=== PATIENT | male | born 1965 ===

== ENCOUNTER 2017-03-29 16:47 | Inpatient (IN) ==
[2017-03-29] MEDS ORDERED: ONDANSETRON 4 MG/2 ML VIAL IV PRN (18:44)
--- NOTE | 2017-03-29 18:58 | Hospitalist History & Physical ---
Assessment and Plan - Time spent with patient Time spent with patient: Greater than 30 minutes (1) Acute CVA (cerebrovascular accident) Status: Acute Assessment and plan: Patient has evidence of an acute to subacute ischemic CVA. He will be monitored in the ICU overnight. Will allow for permissive hypertension in view of his acute CVA. Will obtain MRI of the brain, carotid Dopplers, echocardiogram in the a.m. Will consult neurology. Provide pharmacologic DVT prophylaxis and began aspirin therapy. Current Visit: Yes (2) Hypertension Status: Acute Assessment and plan: Patient has chronic essential hypertension. He is currently hypertensive which will need to be controlled at some point however in the presence of acute ischemia will allow permissive hypertension at this time. Current Visit: Yes (3) Diabetes mellitus Status: Chronic Assessment and plan: He has been noncompliant. Will obtain hemoglobin A1c. Will begin Accu-Cheks with sliding scale insulin. Current Visit: Yes Qualifiers: Diabetes mellitus type: type 2 (4) Hyperlipidemia Status: Chronic Assessment and plan: Obtain lipid panel in the a.m. and provide appropriate therapy based on these results. Current Visit: Yes (5) Chronic kidney disease Status: Chronic Assessment and plan: Patient has chronic kidney disease stage IV based on his creatinine of 2.7 with an estimated GFR of 26. Will continue current therapy and avoid any potential nephrotoxic insults or agents. Current Visit: Yes Qualifiers: Chronic kidney disease stage: stage 4 (severe) Qualified Code(s): N18.4 - Chronic kidney disease, stage 4 (severe) History of Present Illness Chief complaint: Headache and dizziness History of present illness: Mr. Soto is a 51 year old male who initially presented to primary care provider with complaints of high blood pressure and dizziness. He has had a left/frontal headache which is throbbing in nature and waxing and waning in intensity for the past 3 days. He states his dizziness is more of imbalance. He denies any focal motor weakness or paresthesias speech difficulty, swallowing difficulty. He was then sent to [facility] where he was evaluated and ultimately transferred [facility] for workup of possible stroke. He does have a history of hypertension, diabetes mellitus, hyperlipidemia but states he is taking no medications and has been noncompliant. Medical,Surgical,& Family Hx - Medical History Cardio: History of: Hypertension Endocrine: History of: Diabetes Mellitus (NIDDM), Dyslipidemia - Surgical History Abdominal Surgeries: Surgical HX of: Appendectomy - Family History Family History: Reports;: Family Hypertension - Social History Smoking Status: Current every day smoker Have you smoked in the last 12 months: Yes (Discussed smoking cessation for 3 minutes.) Time spent discussing smoking cessation with patient: 3 to 10 minutes Frequency of Alcohol Use: Occasionally (He states he drinks on weekends) Type of Drug Use: None Marital Status: Functional capacity: independent ambulation 12 point system: reviewed and no additional remarkable complaints except as stated Exam - Constitutional General appearance: no acute distress - Head Head exam: Present: normocephalic, atraumatic - Eye Eye exam: Present: EOMI, other (He does appear to have a right homonymous hemianopsia). Absent: nystagmus Pupils: Present: MAVIS - ENT ENT exam: Present: normal oropharynx - Neck Neck exam: Present: normal inspection. Absent: lymphadenopathy, meningismus, tenderness, thyromegaly - Respiratory Respiratory exam: Present: clear to auscultation bilaterally. Absent: rales, rhonchi, wheezes - Cardiovascular Cardiovascular exam: Present: gallop (S 4), regular rate and rhythm. Absent: carotid bruit, systolic murmur, tachycardia - GI/Abdominal GI/Abdominal exam: Present: normal bowel sounds, soft. Absent: mass, tenderness , rebound - Extremities Exam Extremities exam: Absent: calf tenderness, edema - Back Exam Back exam: Present: normal inspection - Neurological Exam Neurological exam: Present: alert, oriented X3, CN II-XII intact, reflexes normal. Absent: motor sensory deficit - Psychiatric Psychiatric exam: Present: normal affect, normal mood. Absent: agitated, anxious - Skin Skin exam: Present: warm, dry. Absent: erythema, petechiae, rash Results - Labs Lab Results: I have reviewed the past 24 hour labs Labs: Laboratory from [facility] cardiac isoenzymes were negative. Creatinine was 2.7 with a BUN of 18. Sodium 145, potassium 3.5, CO2 29, glucose 130, chloride 110. CBC revealed white count of 6.6, platelet count 233, 000, hemoglobin 13.9, hematocrit 42.2 - EKG EKG shows: sinus rhythm - Impressions EKG revealed a normal sinus rhythm with no acute changes - Diagnostic Findings Procedure: CT: report reviewed by me (CT head at [facility] revealed probable acute ischemic infarct in the left occipital lobe, old lacunar infarct in the left caudate, moderate deep white matter small vessel ischemic changes) Quality Measures - Stroke Onset of Symptoms Date: 03/27/17 Symptom Onset Unknown: No Contraindication Not Initiating IV-tPA: Other medical
[2017-03-29] MEDS ORDERED: LABETALOL 20 MG/4 ML SYRINGE IV PRN (19:07)
[2017-03-29] MEDS ORDERED: GLUCAGON 1 MG VIAL IM PRN (19:14)
[2017-03-29] MEDS ORDERED: DEXTROSE 50% 25 GM/50 ML VIAL IV PRN (19:14)
[2017-03-29] MEDS: SODIUM CHLORIDE 0.9% 1,000 ML IV SCH (19:47)
[2017-03-29] MEDS: amLODIPine 5 MG TABLET PO SCH (19:55)
[2017-03-29] MEDS: ENOXAPARIN 30 MG/0.3 ML SYRINGE SUBCUT SCH (19:55)
[2017-03-29] MEDS: ASPIRIN 325 MG TABLET PO SCH (19:55)
[2017-03-29] MEDS: DOCUSATE SODIUM 100 MG CAPSULE PO SCH (20:03)
[2017-03-29] MEDS: ATORVASTATIN 80 MG TABLET PO SCH (20:03)
[2017-03-29 20:09] LABS: Basophils # 0.1 10*3/uL (0.0-0.2); Basophils % 0.7 % (0.0-0.8); Eosinophils # 0.1 10*3/uL (0.0-0.87); Eosinophils % 1.6 % (0.00-10.9); Hematocrit 38.6 VOL% (42.0-52.0); Hemoglobin 13.1 GM/DL (14.0-18.0); Immature Granulocytes % 0.3 %; Immature Granulocytes Absolute 0.02 #; Lymphocytes # 2.3 10*3/uL (1.4-4.0); Lymphocytes % 33.7 % (21.2-54.2); Mean Corpuscular HGB Conc 33.9 GM/DL (32-36); Mean Corpuscular Hemoglobin 32 PG (27-34); Mean Corpuscular Volume 95.3 FL (87-102); Mean Platelet Volume 9.7 FL (9.6-12.0); Monocytes # 0.6 10*3/uL (0.11-0.8); Monocytes % 8.1 % (1.7-12.7); Neutrophils # 3.9 10*3/uL (1.4-7.4); Neutrophils % 55.6 % (38.7-73.9); Platelet Count 214 T/CUMM (130-400); Red Blood Count 4.05 MC/CUMM (3.8-5.5); Red Cell Distribution Width 12.9 % (9.3-17.3); White Blood Count 6.9 T/CUMM (4-12)
[2017-03-29 20:36] LABS: Albumin 1.6 G/DL (3.4-5.0); Bilirubin,Total 0.4 MG/DL (0.2-1.0); Calcium 7.8 MG/DL (8.5-10.1); Osmolality,Calculated 287.8 MOS/KG (273-304); Risk Ratio 5.69; Total Protein 4.6 G/DL (6.4-8.3); VLDL CHOLESTEROL 26.6 MG/DL
--- NOTE | 2017-03-29 21:03 | Ultrasound Report ---
Exam:US carotid duplex BI Date:03/29/2017 7:11 PM Indication: Dizziness Technique:Grayscale color flow analysis and spectral analysis imaging was performed with image stored and captured. Findings: Minimal scattered atherosclerotic plaque is noted within the common carotid arteries distally at the bulb and proximal internal carotid artery without significant stenosis suggested. Right Side Flow velocities centimeters per second Common carotid artery: 49 Proximal ICA:75.7 Distal ICA:68.8 External carotid artery:171.0 Vertebral artery:23.3 ICA/CCA ratio:1.5 Measurements in millimeters Distal ICA: 4.6 Left SIde Flow velocities centimeters per second Common carotid artery 90 Proximal ICA:52.0 Distal ICA:84.4 External carotid artery:129.0 Vertebral artery:36.2 ICA/CCA ratio:0.9 Measurements in millimeters Distal ICA: 6.4 Impression: 1. No significant atherosclerotic disease or luminal stenosis by ultrasound criteria within either internal carotid artery. 2. Antegrade flow within both vertebral arteries. Today studies were performed utilizing indirect NASCET criteria PROCEDURE INTERPRETED AT [facility] DEPARTMENT OF RADIOLOGY Final Report Signed by: Axel Soto
[2017-03-30 00:09] LABS: Barbiturates Screen,Urine Negative (Negative); Benzodiazepines Screen,Urine Negative (Negative); Cannabinoid Screen,Urine Positive (Negative); Opiate Screen,Urine Positive (Negative); Phencyclidine Screen,Urine Negative (Negative)
[2017-03-30] MEDS: INSULIN LISPRO 100 UNIT/ML SUBCUT SCH ×4 (00:50→17:22)
[2017-03-30 02:50] LABS: Basophils % 0.6 % (0.0-0.8); Eosinophils # 0.1 10*3/uL (0.0-0.87); Eosinophils % 1.9 % (0.00-10.9); Hematocrit 35.2 VOL% (42.0-52.0); Hemoglobin 12.1 GM/DL (14.0-18.0); Immature Granulocytes % 0.3 %; Immature Granulocytes Absolute 0.02 #; Lymphocytes % 28.9 % (21.2-54.2); Mean Corpuscular HGB Conc 34.4 GM/DL (32-36); Mean Corpuscular Hemoglobin 32 PG (27-34); Mean Corpuscular Volume 93.9 FL (87-102); Mean Platelet Volume 9.3 FL (9.6-12.0); Monocytes # 0.6 10*3/uL (0.11-0.8); Monocytes % 8.4 % (1.7-12.7); Neutrophils # 4.1 10*3/uL (1.4-7.4); Neutrophils % 59.9 % (38.7-73.9); Platelet Count 198 T/CUMM (130-400); Red Blood Count 3.75 MC/CUMM (3.8-5.5); Red Cell Distribution Width 12.8 % (9.3-17.3); White Blood Count 6.9 T/CUMM (4-12)
[2017-03-30] MEDS: SODIUM CHLORIDE 0.9% 1,000 ML IV SCH ×2 (03:56→12:32)
--- NOTE | 2017-03-30 08:40 | XRay Report ---
Exam: XR chest 1V portable Date: 03/30/2017 4:00 AM Indication: Shortness of breath Comparison: None Technical: AP Findings: Low volume effusions are present with atelectatic change and infiltrates bilaterally in the bases. Heart is slightly accentuated on the mid inspiratory exam. Oxygen tubing external cardiac leads are present. No pneumothorax. Impression: 1. Bibasilar atelectatic change/pneumonic infiltrates and effusions 2. Mild cardiac enlargement on the mid inspiratory exam PROCEDURE INTERPRETED AT [facility] DEPARTMENT OF RADIOLOGY Final Report Signed by: Dr. Jean Carlos Wilson
--- NOTE | 2017-03-30 09:29 | Hospitalist Progress Note ---
Assessment and Plan (1) Cerebral infarction Status: Acute Assessment and plan: Impression: 1. Cerebral infarction 2. Hypertension 3. Type II DM Plan: Await results of investigation. I believe neurology has also been consulted. We will await their opinion. I think we can probably transfer out of the ICU later today. This note was completed using youwho voice recognition software. There may be production cloth cutter errors as a result. Current Visit: Yes Qualifiers: Cerebral infarction mechanism: vascular occlusion Precerebral and cerebral artery: posterior cerebral artery Laterality of affected vessel: left Qualified Code(s): I63.532 - Cerebral infarction due to unspecified occlusion or stenosis of left posterior cerebral artery Hospitalist: Subjective Interval history: Follow-up cerebral infarction. The patient continues to complain of a left-sided throbbing headache. Blood pressure remains elevated. He describes what sounds like a right temporal visual field cut. He reports a history of hypertension and diabetes, but admits that he is not taking any medication for these problems. MRI, echocardiogram, and carotid ultrasound have all been ordered for this morning. Exam - Constitutional Vitals: Period Temp Pulse Resp BP Sys/Wade Pulse Ox Last 24 Hr 97.3 F-97.8 F 61-89 13-20 150-221/79-125 97-100 Vital signs are noted above. Heart is regular with no murmur or gallop. Lungs are clear with no rales or wheezes. He is awake and conversant. He moves all 4 extremities. He has a right homonymous hemianopsia. Results - Labs CBC & BMP: 03/30/17 02:40 03/29/17 19:34 Lab Results: I have reviewed the past 24 hour labs Quality Measures - Stroke Onset of Symptoms Date: 03/27/17 Symptom Onset Unknown: No
[2017-03-30] MEDS ORDERED: POTASSIUM CHLORIDE 20 MEQ TABLET PO ONE (09:31)
[2017-03-30] MEDS: PANTOPRAZOLE 40 MG TABLET PO SCH (10:07)
[2017-03-30] MEDS: ACETAMINOPHEN 325 MG TABLET PO PRN ×2 (10:08→17:21)
[2017-03-30] MEDS: amLODIPine 5 MG TABLET PO SCH (10:08)
[2017-03-30] MEDS: ASPIRIN 325 MG TABLET PO SCH (10:08)
[2017-03-30] MEDS: DOCUSATE SODIUM 100 MG CAPSULE PO SCH ×2 (10:09→22:15)
--- NOTE | 2017-03-30 12:34 | Neurology Consult Note ---
History of Present Illness History of present illness: Mr. Soto is a 51 year old right-handed -[place] gentleman with past medical history significant for hypertension, diabetes, hyperlipidemia who has been noncompliant with the medications and doctors visits to the hospital with headache, blurred vision and uncontrolled hypertension. He initially presented to primary care provider with complaints of high blood pressure and dizziness. He has had a left/frontal headache which is throbbing in nature and waxing and waning in intensity for the past 3 days. He states his dizziness is more of imbalance. He denies any focal motor weakness or paresthesias speech difficulty , swallowing difficulty. He was then sent to [facility] where he was evaluated with a CAT scan and the report is not available at this time and ultimately transferred [place] for workup of possible stroke. Of note toxicology is positive for opiates and cannabinoids. Home Medications Medication Instructions Recorded Confirmed Type No Known Home Medications [No 03/29/17 03/29/17 History Known Home Medications] Allergies Allergy/AdvReac Type Severity Reaction Status Date / Time No Known Allergies Allergy Verified 03/29/17 19:28 12 point system: reviewed and no additional remarkable complaints except as stated Medical,Surgical,& Family Hx - Medical History Cardio: History of: Hypertension (pt has been noncompliant w/ meds x >2 yrs per his report) Neurology: History of: Cerebrovascular Accident (admitted today w/ cva symptoms) Endocrine: History of: Diabetes Mellitus (NIDDM) (pt has been noncompliant w/ meds x >2 yrs per his report), Dyslipidemia Hematology: No history of: Blood Transfusion Reaction Other: No history of: Anesthesia Reactions - Surgical History Cardiac Surgeries: Patient Denies: Cardiac Catheterization Abdominal Surgeries: Surgical HX of: Appendectomy Orthopedic Surgeries: Surgical HX of;: Orthopedic Surgery (right ankle surgey) - Family History Family History: Reports;: Family Hypertension (grandmother), Family Stroke ( grandfather) - Social History Smoking Status: Current every day smoker Frequency of Alcohol Use: Occasionally Type of Drug Use: None Exam - Constitutional Vitals: Period Temp Pulse Resp BP Sys/Wade Pulse Ox Last 24 Hr 97.3 F-98.3 F 61-89 12-20 150-221/79-125 97-100 Exam: GENERAL: Patient is in no acute distress. NECK: Neck is supple. There is no JVD. No carotid bruits present. No thyroid masses. CVS: First and second heart sounds are normal. There is no S3 present. Regular rate and rhythm. RESPIRATORY: Lungs are clear to auscultation without any rales or rhonchi. ABDOMEN: Soft and non-tender. Bowel sounds are present. There is no hepatosplenomegaly. EXT: There is no palpable edema. Peripheral pulses are present. Skin: No rashes Central Nervous system: General: Alert, awake and Oriented x 3 Speech: Fluent Comprehension: Intact and normal Facial expressions: Normal Cranial Nerves: CN1/Olfactory: Normal CN II/ Optic: Normal, Visual Buchanan normal CN III, and : MAVIS & EOMI CN V: Normal & intact CN VII: face is symmetric CNVIII: Normal CN XI/X/XI/XII: Intact and Normal Motor: Bulk and Tone is normal. Strength in the right 5/5 Strength in the left 5/5 Sensory: Grossly intact for all the modalities of PP, LT and temp sense Reflexes: 1+ and symmetrical Cerebellar function: Normal finger to nose and heel to mandel testing. Toes: Equivocal Gait: Not tested at this Results - Labs CBC & BMP: 03/30/17 02:40 03/29/17 19:34 Assessment and Plan (1) New onset of headaches Status: Acute Assessment and plan: Continue [place] for now for pain management Current Visit: Yes (2) Blurred vision Status: Acute Assessment and plan: Agree with MRI of the brain If MRI is nonconclusive that we might have to do a spinal tap Current Visit: Yes (3) Hypertension Status: Acute Assessment and plan: Continue current medications. Check vitals per routine. Thank you for the consult Current Visit: Yes (4) Drug abuse Status: Acute Assessment and plan: This may have something to do with his current symptoms Current Visit: Yes
--- NOTE | 2017-03-30 15:31 | Magnetic Resonance Report ---
Exam: MR angiography of the brain Exam date: March 30, 2017 at 1316 hours Indication: Dizziness Comparison images not available Technique: Magnetic resonance angiography of the brain was performed in routine fashion. Axial acquisition data with 3-D MIPS projections submitted for interpretation Findings: The petrous, cavernous and clinoid segments of the internal carotid arteries are normal. Normal course, caliber and flow of the bilateral M1, M2 and in M3 segments. Normal peripheral distribution of the middle cerebral arteries. origin right P1 segment. Left posterior contained artery appears hypoplastic. Anterior cerebral arteries are widely patent. Visualized brain parenchyma is unremarkable. Impression: Unremarkable MRA brain. No findings to suggest aneurysm, malformation or stenosis or occlusion. PROCEDURE INTERPRETED AT [facility] DEPARTMENT OF RADIOLOGY Final Report Signed by: Nikolai Velez
--- NOTE | 2017-03-30 16:01 | Magnetic Resonance Report ---
History: Dizziness. Blurred vision. CVA Date: 03/30/2017 Study: MRI brain without IV contrast Comparison exam: No previous brain imaging study currently available The brain was imaged in 3 planes on the 1.5 Maggie magnet without IV contrast, to include diffusion, T2, FLAIR, gradient echo, and T1-weighted sequences. The exam was performed within 24 hours of admission to this hospital. The ventricles are midline in position without evidence of hydrocephalus. There is no Chiari I malformation. There is no gross pituitary mass. There is a 4.5 area of restricted diffusion involving the left occipital lobe and inferior medial aspect of the left temporal lobe compatible with acute ischemia between 6 hours and 4 days old involving left EVENT DECORATOR territory. There is no parenchymal hemorrhage or area of mass effect. There is moderate amount of patchy and punctate increased FLAIR and T2 signal in the periventricular white matter without mass effect or enhancement compatible with changes of small vessel disease. There is also evidence to suggest mild to moderate small vessel disease in the central grzegorz. There is chronic lacunar infarction in the proximal left caudate nucleus. There is no extra-axial hematoma. There is a normal flow void in the superior sagittal sinus. There is no gross flow abnormality in the [place] of [place]ang area. There is no obvious cerebellopontine angle mass. There is mild mucosal thickening in the maxillary sinuses bilaterally. Impression: There is a 4.5 cm area of restricted diffusion in a left EVENT DECORATOR distribution compatible with ischemia between 6 hours and 4 days old. There is no parenchymal hemorrhage. Changes of small vessel disease are noted. PROCEDURE INTERPRETED AT [facility] DEPARTMENT OF RADIOLOGY Final Report Signed by: Dr. Renetta Vasquez
--- NOTE | 2017-03-30 17:47 | ECHO Report ---
Martín Soto 03/30/2017 Exam Date: 08:08 Referring Physician: Gianna Flood Technologist: SHANTEL Age: 51 Ht (in): 69 Wt (lb): 159 MExam Location: [facility] Gender: Echo [id number]: Acute CVA, Essential (primary) hypeIndications: Hyperlipidemia, unspecified, NIDDM, Chronic kidney disease, stage 4 (severe), Nicotine dependence, cigarettes, uncomplicated, Dizziness and giddiness, Headache BP: 195 / 103 HR: 66 SinusRhythm: FairTechnical Quality: IMPRESSIONS Normal LV systolic function, ejection fraction 55%. Grade 2/4 diastolic dysfunction consistent with increased left atrial pressure. Mild concentric left ventricular hypertrophy. Trace to mild mitral and tricuspid regurgitation. MEASUREMENTS (Male / Female) Normal Values 2D ECHO LV Diastolic Diameter PLAX 4.8 cm 4.2 - 5.9 / 3.9 - 5.3 cm LV Systolic Diameter PLAX 3.7 cm LV Fractional Shortening PLAX 22.5 % IVS Diastolic Thickness 1.3 cm 0.6 - 1.0 / 0.6 - 0.9 cm LVPW Diastolic Thickness 1.3 cm 0.6 - 1.0 / 0.6 - 0.9 cm RV Internal Dim ED PLAX 2.5 cm Aortic Root Diameter 3.5 cm LA Systolic Diameter LX 3.8 cm 3.0 - 4.0 / 2.7 - 3.8 cm FINDINGS Left Ventricle Normal left ventricular cavity size. Mild left ventricular hypertrophy. Left ventricular ejection fraction is estimated at 55 %. Right Ventricle The right ventricle is normal in size and function. Right Atrium The right atrium is normal in size. Left Atrium The left atrium is normal in size. Mitral Valve Mildly thickened mitral valve. Mild mitral valve regurgitation. Aortic Valve Morphologically normal aortic valve without significant sclerosis or stenosis. There is no aortic regurgitation. Tricuspid Valve Morphologically normal tricuspid valve. Trace tricuspid valve regurgitation. Pulmonic Valve Morphologically normal pulmonic valve without significant stenosis. There is no pulmonic regurgitation. Pericardium Normal pericardium without effusion. Aorta Normal ascending aorta dimension. Gabriela Maguire MD (Electronically Signed) 30 March 2017 Final Date: 17:46
[2017-03-30] MEDS: ATORVASTATIN 80 MG TABLET PO SCH (22:14)
[2017-03-30] MEDS: ENOXAPARIN 30 MG/0.3 ML SYRINGE SUBCUT SCH (22:15)
[2017-03-31] MEDS: INSULIN LISPRO 100 UNIT/ML SUBCUT SCH ×5 (01:31→23:41)
[2017-03-31 05:40] LABS: Calcium 7.2 MG/DL (8.5-10.1); Osmolality,Calculated 287.8 MOS/KG (273-304); Potassium 3.2 MMOL/L (3.5-5.1)
[2017-03-31] MEDS: DOCUSATE SODIUM 100 MG CAPSULE PO SCH ×2 (08:34→20:50)
[2017-03-31] MEDS: ASPIRIN 325 MG TABLET PO SCH (08:34)
[2017-03-31] MEDS: PANTOPRAZOLE 40 MG TABLET PO SCH (08:35)
[2017-03-31] MEDS: amLODIPine 5 MG TABLET PO SCH (08:35)
--- NOTE | 2017-03-31 09:28 | Hospitalist Progress Note ---
Assessment and Plan (1) Acute CVA (cerebrovascular accident) Status: Acute Assessment and plan: Left occipital location. Current Visit: Yes (2) Hypertension Status: Chronic Assessment and plan: Poor control-medication lapse. Hypokalemia with reduced GFR. Current Visit: Yes (3) Diabetes mellitus Status: Chronic Assessment and plan: Renal dysfunction with exceptionally low serum albumen level. Current Visit: Yes Qualifiers: Diabetes mellitus type: type 2 Hospitalist: Subjective Interval history: 51-year-old male hypertension with lapsed treatment presenting with left sided headache with MRI showing in addition to small vessel disease an ischemic event in the posterior cerebral artery distribution on the left side. Carotid ultrasound was negative. The patient has an elevated serum creatinine markedly low albumin level with a hemoglobin A1c of 7.9. His echocardiogram shows mild concentric hypertrophy only. He continues to have a headache and blood pressure remains at least moderately elevated. There is been no nausea or vomiting. Exam - Constitutional Vitals: Period Temp Pulse Resp BP Sys/Wade Pulse Ox Last 24 Hr 97.6 F-98.2 F 60-79 11-21 160-226/84-115 94-100 General appearance: normal weight - Respiratory Respiratory exam: Present: clear to auscultation bilaterally. Absent: rales, rhonchi, wheezes - Cardiovascular Cardiovascular exam: Present: regular rate and rhythm - GI/Abdominal GI/Abdominal exam: Present: normal bowel sounds, other (No abdominal bruit). Absent: distended - Extremities Exam Extremities exam: Absent: edema - Neurological Exam Neurological exam: Present: alert, oriented X3 Results - Labs CBC & BMP: 03/30/17 02:40 03/31/17 04:33 Quality Measures - Stroke Onset of Symptoms Date: 03/27/17 Symptom Onset Unknown: No Specialty Discharge - Follow Up or Referrals
[2017-03-31] MEDS: POTASSIUM CHLORIDE 20 MEQ TABLET PO SCH ×4 (09:40→23:34)
[2017-03-31 13:22] LABS: Amorphous Crystals,Urine Occasional /HPF (Few); Apearance,Urine CLEAR (Clear); Bacteria,Urine Occasional /HPF (Few); Bilirubin,Urine Negative (Negative); Blood, Urine Negative (Negative); Glucose,Urine (UA) >=500 mg/dL (Negative); Hyaline Casts,Urine 5 /LPF (0-3); Ketones,Urine Negative (Negative); Mucus,Urine Occasional /LPF (Occasional); Nitrite,Urine Negative (Negative); Protein,Urine >=500 MG/DL; RBC,Urine 4 /HPF (0-4); Sperm,Urine Occasional /HPF (Negative); Squamous Epithelial Cell,Urine Occasional /HPF (0-10); Urine Color Yellow (Yellow); Urine Specific Gravity 1.012 (1.001-1.035); Urine Urobilinogen < 2.0 EU/DL (0.2-1.0); WBC,Urine 3 /HPF (0-6)
[2017-03-31 13:48] LABS: Protein/Creatinine Ratio,Urine 8.3 RATIO
[2017-03-31] MEDS: METOPROLOL TARTRATE 25 MG TABLET PO SCH ×2 (18:16→23:34)
[2017-03-31] MEDS: ATORVASTATIN 80 MG TABLET PO SCH (20:49)
[2017-03-31] MEDS: ENOXAPARIN 30 MG/0.3 ML SYRINGE SUBCUT SCH (20:51)
[2017-04-01] MEDS: INSULIN LISPRO 100 UNIT/ML SUBCUT SCH ×3 (06:08→19:01)
[2017-04-01] MEDS: METOPROLOL TARTRATE 25 MG TABLET PO SCH ×2 (06:09→11:20)
[2017-04-01 07:12] LABS: Calcium 7.4 MG/DL (8.5-10.1); Potassium 4.4 MMOL/L (3.5-5.1)
--- NOTE | 2017-04-01 08:48 | Hospitalist Progress Note ---
Assessment and Plan (1) Acute CVA (cerebrovascular accident) Status: Acute Assessment and plan: Left occipital location. Current Visit: Yes (2) Hypertension Status: Chronic Assessment and plan: Poor control-medication lapse. Hypokalemia with reduced GFR. He has been initiated on a dihydropyridine. Calcium antagonist with the addition of beta blockade. Current Visit: Yes (3) Diabetes mellitus Status: Chronic Assessment and plan: Renal dysfunction with exceptionally low serum albumen level and elevated urine protein creatinine ratio. Current Visit: Yes Qualifiers: Diabetes mellitus type: type 2 Hospitalist: Subjective Interval history: 51-year-old male chronic hypertension with lapsed treatment presented with left- sided headache and an MRI showing in addition to chronic small vessel disease and acute ischemic event in the posterior cerebral artery distribution on the left side. Carotid ultrasound was negative. Echocardiogram shows mild concentric hypertrophy only. He was noted to have an elevated serum creatinine initially with a markedly low albumin level. His urine protein creatinine ratio was obtained yesterday and returned at 8.3. Nephrology has been consulted. Patient's blood pressure has been trending downward. We converted him from amlodipine to avoid excessive fluid retention supple to dementing with Procardia XL. Once his echocardiogram was confirmed he was initiated on Lopressor with loading dose which will be adjusted. We will defer to nephrology for possible addition of an LILIBETH inhibitor for his blood pressure as well as presumed diabetic nephropathy. A temperature elevation of 100.6 was noted yesterday on the vital sheet. Exam - Constitutional Vitals: Period Temp Pulse Resp BP Sys/Wade Pulse Ox Last 24 Hr 97.5 F-98.2 F 56-69 12-20 121-197/68-105 92-98 General appearance: normal weight - Respiratory Respiratory exam: Present: clear to auscultation bilaterally. Absent: rales, rhonchi, wheezes - Cardiovascular Cardiovascular exam: Present: regular rate and rhythm - GI/Abdominal GI/Abdominal exam: Present: normal bowel sounds. Absent: tenderness - Extremities Exam Extremities exam: Absent: edema - Neurological Exam Neurological exam: Present: alert, oriented X3 Results - Labs CBC & BMP: 03/30/17 02:40 04/01/17 03:11 Quality Measures - Stroke Onset of Symptoms Date: 03/27/17 Symptom Onset Unknown: No Specialty Discharge - Follow Up or Referrals
[2017-04-01] MEDS ORDERED: POLYETHYLENE GLYCOL POWDER 17 GM PACK PO PRN (08:55)
[2017-04-01] MEDS: DOCUSATE SODIUM 100 MG CAPSULE PO SCH ×2 (10:02→21:13)
[2017-04-01] MEDS: ASPIRIN 325 MG TABLET PO SCH (10:02)
[2017-04-01] MEDS: PANTOPRAZOLE 40 MG TABLET PO SCH (10:02)
[2017-04-01] MEDS: METOPROLOL TARTRATE 50 MG TABLET PO SCH ×2 (10:02→21:13)
--- NOTE | 2017-04-01 13:43 | Neurology Progress Note ---
Neurology - PN : Subjective Interval history: Patient seems to be doing much better. Is still having some headaches. MRI of the brain revealed acute left DERRICK BOAT CAPTAIN distribution infarct. MRA of the head reveals no significant pathology. Echocardiogram reveals ejection fraction of 55%. Carotid ultrasound is unremarkable. Lipid panel reveals slightly high triglycerides level and he is on Lipitor. Exam (Progress Note) - Constitutional Vitals: Period Temp Pulse Resp BP Sys/Wade Pulse Ox Last 24 Hr 97.6 F-98.2 F 56-85 14-20 121-210/68-112 92-98 Exam: GENERAL: Patient is in no acute distress. NECK: Neck is supple. There is no JVD. No carotid bruits present. No thyroid masses. CVS: First and second heart sounds are normal. There is no S3 present. Regular rate and rhythm. RESPIRATORY: Lungs are clear to auscultation without any rales or rhonchi. ABDOMEN: Soft and non-tender. Bowel sounds are present. There is no hepatosplenomegaly. EXT: There is no palpable edema. Peripheral pulses are present. Skin: No rashes Central Nervous system: General: Alert, awake and Oriented x 3 Speech: Fluent Comprehension: Intact and normal Facial expressions: Normal Cranial Nerves: CN1/Olfactory: Normal CN II/ Optic: Normal, Visual Buchanan questionable right homonymous hemianopia CN III, and : MAVIS & EOMI CN V: Normal & intact CN VII: face is symmetric CNVIII: Normal CN XI/X/XI/XII: Intact and Normal Motor: Bulk and Tone is normal. Strength in the right 5/5 Strength in the left 5/5 Sensory: Grossly intact for all the modalities of PP, LT and temp sense Reflexes: 1+ and symmetrical Cerebellar function: Normal finger to nose and heel to mandel testing. Toes: Equivocal Gait: Able to get up and walk Results - Labs CBC & BMP: 03/30/17 02:40 04/01/17 03:11 Assessment and Plan (1) New onset of headaches Status: Acute Assessment and plan: Continue [place] for now for pain management Current Visit: Yes (2) Blurred vision Status: Acute Assessment and plan: This is likely because of left DERRICK BOAT CAPTAIN distribution infarct involving occipital lobe Continue aspirin a day Continue Lipitor Can stop Lovenox once he gets out of the ICU Current Visit: Yes (3) Hypertension Status: Chronic Assessment and plan: Continue current medications. Check vitals per routine. Thank you for the consult Current Visit: Yes (4) Drug abuse Status: Acute Assessment and plan: This may have something to do with his current symptoms Current Visit: Yes Quality Measures - Stroke Onset of Symptoms Date: 03/27/17 Symptom Onset Unknown: No Specialty Discharge - Follow Up or Referrals
[2017-04-01] MEDS: ENOXAPARIN 30 MG/0.3 ML SYRINGE SUBCUT SCH (21:13)
[2017-04-01] MEDS: ATORVASTATIN 80 MG TABLET PO SCH (21:13)
[2017-04-02] MEDS: INSULIN LISPRO 100 UNIT/ML SUBCUT SCH ×5 (00:41→21:41)
[2017-04-02] MEDS: METOPROLOL TARTRATE 50 MG TABLET PO SCH (08:45)
[2017-04-02] MEDS: ASPIRIN 325 MG TABLET PO SCH (08:45)
[2017-04-02] MEDS: PANTOPRAZOLE 40 MG TABLET PO SCH (08:46)
[2017-04-02] MEDS: DOCUSATE SODIUM 100 MG CAPSULE PO SCH ×2 (08:49→21:40)
--- NOTE | 2017-04-02 14:10 | Nephrology Consult Note ---
History of Present Illness Chief complaint: renal failure History of present illness: Mr. Soto is a 51 year old male admitted with an acute CVA. He was noted to have elevated creatinine and heavy proteinuria. He has a 15 year history of diabetes. He is unaware of prior renal insufficiency. He has not seen a transportation associate. He denies any symptoms off volume overload. He's had no obstructive symptoms or dysuria. No history of nephrolithiasis. Home Medications Medication Instructions Recorded Confirmed Type No Known Home Medications [No 03/29/17 03/29/17 History Known Home Medications] Allergies Allergy/AdvReac Type Severity Reaction Status Date / Time No Known Allergies Allergy Verified 03/29/17 19:28 Medical,Surgical,& Family Hx - Medical History Cardio: History of: Hypertension (pt has been noncompliant w/ meds x >2 yrs per his report) Neurology: History of: Cerebrovascular Accident (admitted today w/ cva symptoms) Endocrine: History of: Diabetes Mellitus (NIDDM) (pt has been noncompliant w/ meds x >2 yrs per his report), Dyslipidemia Hematology: No history of: Blood Transfusion Reaction Other: No history of: Anesthesia Reactions - Surgical History Cardiac Surgeries: Patient Denies: Cardiac Catheterization Abdominal Surgeries: Surgical HX of: Appendectomy Orthopedic Surgeries: Surgical HX of;: Orthopedic Surgery (right ankle surgey) - Family History Family History: Reports;: Family Hypertension (grandmother), Family Stroke ( grandfather) - Social History Smoking Status: Current every day smoker Frequency of Alcohol Use: Occasionally Type of Drug Use: None Review of Systems 12 point system: reviewed and no additional remarkable complaints except as stated Exam - Vital Signs Vital signs: Period Temp Pulse Resp BP Sys/Wade Pulse Ox Last 24 Hr 97.5 F-99.3 F 54-72 15-56 142-197/74-101 93-98 Exam: General: Alert, oriented ENT: normal CV: RRR Lungs: Clear Abdomen: Nontender Extremities: No edema Results - Labs CBC & BMP: 03/30/17 02:40 04/01/17 03:11 Assessment and Plan (1) Nephrotic syndrome Status: Acute Assessment and plan: 51-year-old man with: * Cerebrovascular disease. Acute CVA * Hypertension * Diabetes mellitus * CRF stage III * Nephrotic syndrome. SPIE * Hyperlipidemia Current Visit: Yes (2) Acute CVA (cerebrovascular accident) Status: Acute Current Visit: Yes (3) Chronic kidney disease Status: Chronic Current Visit: Yes Qualifiers: Chronic kidney disease stage: stage 4 (severe) Qualified Code(s): N18.4 - Chronic kidney disease, stage 4 (severe) (4) Diabetes mellitus Status: Chronic Current Visit: Yes Qualifiers: Diabetes mellitus type: type 2 (5) Hyperlipidemia Status: Chronic Current Visit: Yes (6) Hypertension Status: Chronic Current Visit: Yes Specialty Discharge - Follow Up or Referrals
[2017-04-02] MEDS: ACETAMINOPHEN 325 MG TABLET PO PRN (14:51)
--- NOTE | 2017-04-02 15:07 | Hospitalist Progress Note ---
Assessment and Plan (1) Acute CVA (cerebrovascular accident) Status: Acute Assessment and plan: Patient stroke is mainly affecting his vision. Continue aspirin. Will try to better control his blood pressure now that his stroke is more stable. Patient should be stable for discharge soon. We will move out of the ICU. Current Visit: Yes (2) Hypertension Status: Chronic Assessment and plan: Patient's blood pressure remains high. Patient has had a stroke but his stroke is stable and we need to start lowering his blood pressure. Changed his metoprolol over to Coreg, continued his clonidine twice daily, changed his Procardia to Norvasc. We will continue to monitor with labetalol prn Current Visit: Yes (3) Diabetes mellitus Status: Chronic Assessment and plan: Hemoglobin A1c is 7.9 with patient's renal insufficiency insulin would be better but doubt he would be compliant. Concerned about Amaryl not clearing his kidneys appropriately due to nephrotic syndrome. Will start on low-dose Lantus Current Visit: Yes Qualifiers: Diabetes mellitus type: type 2 (4) Hyperlipidemia Status: Chronic Assessment and plan: Continue atorvastatin Current Visit: Yes (5) New onset of headaches Status: Acute Assessment and plan: Chronic opioid dependence. Restart [place] . Dr. Mcgee recommends just [place] for now Current Visit: Yes (6) Drug abuse Status: Acute Assessment and plan: Patient test positive for marijuana. Current Visit: Yes (7) Nephrotic syndrome Status: Acute Assessment and plan: Dr. Stephens has seen him and ordered electrophoresis study and a renal ultrasound Current Visit: Yes Hospitalist: Subjective Interval history: Patient complaining of a headache today. Patient was positive for opiates and marijuana. Blood pressure is stable and we are transferring him out of the ICU. We will change his diet to a diabetic diet. Exam - Constitutional Vitals: Period Temp Pulse Resp BP Sys/Wade Pulse Ox Last 24 Hr 97.5 F-99.3 F 54-72 15-56 142-197/74-101 93-98 Exam: Heart Rate-[RRR] Lungs-[CTAB] GI-[+bs soft, NT] Ext-[no edema] Neuro [Motor 5/5], [alert and oriented times 3] psych [normal mood and affect] General [mild acute distress due to headache] Results - Labs CBC & BMP: 03/30/17 02:40 04/01/17 03:11 Lab Results: I have reviewed the past 24 hour labs - Diagnostic Findings Procedure: MRI: report reviewed by me (MRI shows a left BURR GRINDER infarct measuring 4.5 cm, MRA irregular left P1 and P2 segments and hypoplastic left posterior communicating artery.), Ultrasound: report reviewed by me (Echocardiogram showed an EF of 55% with 2/4 diastolic dysfunction. Carotid Doppler shows no significant stenosis.) Quality Measures - Stroke Onset of Symptoms Date: 03/27/17 Symptom Onset Unknown: No Specialty Discharge - Follow Up or Referrals
[2017-04-02] MEDS ORDERED: hydrALAZINE 25 MG TABLET PO SCH (15:30)
[2017-04-02] MEDS: amLODIPine 10 MG TABLET PO SCH (16:48)
[2017-04-02] MEDS: INSULIN GLARGINE 100 UNIT/ML SUBCUT SCH (16:48)
--- NOTE | 2017-04-02 19:32 | Ultrasound Report ---
History: Nephrotic syndrome Date: 04/02/2017 Study: Ultrasound renal Doppler Comparison exam: No previous similar Real-time ultrasound images are captured and archived. Color Doppler, pulse Doppler, and grayscale images are submitted. There is flow within the abdominal aorta with peak systolic velocity of 47.7 cm/s. Flow is documented within the renal arteries bilaterally. There is no color Doppler bruit sign to suggest high-grade renal artery stenosis on either side. Peak systolic velocities within the right kidney range from 21.4 cm per 2nd to 33.5 cm/s. Peak systolic velocities on the left range from 15.9 cm per 2nd to 25.8 cm/s. The renal artery to aortic ratio measures 0.8 on the right and 0.9 on the left. There is no hydronephrosis or abnormal perinephric fluid. The right kidney measures 10.2 x 4.4 x 5.0 cm; the left kidney measures 9.7 x 5.1 x 5.3 cm. The renal parenchyma is hypoechoic to the hepatic parenchyma. There is no renal mass. Impression: No renal artery stenosis detected. Normal sonographic appearance of the kidneys are otherwise PROCEDURE INTERPRETED AT [facility] DEPARTMENT OF RADIOLOGY Final Report Signed by: Dr. Renetta Vasquez
[2017-04-02] MEDS: ATORVASTATIN 80 MG TABLET PO SCH (21:39)
[2017-04-02] MEDS: CARVEDILOL 6.25 MG TABLET PO SCH (21:39)
[2017-04-02] MEDS: ENOXAPARIN 30 MG/0.3 ML SYRINGE SUBCUT SCH (21:42)
[2017-04-03] MEDS: INSULIN LISPRO 100 UNIT/ML SUBCUT SCH ×4 (09:26→20:52)
[2017-04-03] MEDS: ACETAMINOPHEN 325 MG TABLET PO PRN ×2 (09:28→16:52)
[2017-04-03] MEDS: amLODIPine 10 MG TABLET PO SCH (09:29)
[2017-04-03] MEDS: CARVEDILOL 6.25 MG TABLET PO SCH ×2 (09:29→20:52)
[2017-04-03] MEDS: INSULIN GLARGINE 100 UNIT/ML SUBCUT SCH (09:29)
[2017-04-03] MEDS: DOCUSATE SODIUM 100 MG CAPSULE PO SCH ×2 (09:29→20:52)
[2017-04-03] MEDS: ASPIRIN 325 MG TABLET PO SCH (09:32)
[2017-04-03] MEDS: PANTOPRAZOLE 40 MG TABLET PO SCH (10:44)
[2017-04-03 12:31] LABS: Calcium 7.5 MG/DL (8.5-10.1); Osmolality,Calculated 284.5 MOS/KG (273-304); Potassium 3.8 MMOL/L (3.5-5.1)
--- NOTE | 2017-04-03 13:27 | Nephrology Progress Note ---
Nephrology - PN: Subj Interval history: He is awake and alert. He denies shortness of breath or chest pain. Exam (PN)-Nephrology - Vital Signs Vital signs: Period Temp Pulse Resp BP Sys/Wade Pulse Ox Last 24 Hr 96.5 F-99.2 F 58-72 16-20 139-197/73-97 90-97 Exam: ENT: Normal Cardiovascular: Regular rate and rhythm. No murmur rub or gallop Lungs: Clear Extremities: No edema - Lab 03/30/17 02:40 04/03/17 11:53 Most recent lab results Calcium 7.5 MG/DL (8.5-10.1) L 04/03/17 11:53 Assessment and Plan (1) Nephrotic syndrome Status: Acute Assessment and plan: 51-year-old man with: * Cerebrovascular disease. Acute CVA * Hypertension. Improved control * Diabetes mellitus * CRF stage III. Creatinine slightly higher today. This is likely due to better blood pressure control. * Nephrotic syndrome. SPIE pending * Hyperlipidemia Current Visit: Yes (2) Acute CVA (cerebrovascular accident) Status: Acute Current Visit: Yes (3) Chronic kidney disease Status: Chronic Current Visit: Yes Qualifiers: Chronic kidney disease stage: stage 4 (severe) Qualified Code(s): N18.4 - Chronic kidney disease, stage 4 (severe) (4) Diabetes mellitus Status: Chronic Current Visit: Yes Qualifiers: Diabetes mellitus type: type 2 (5) Hyperlipidemia Status: Chronic Current Visit: Yes (6) Hypertension Status: Chronic Current Visit: Yes Specialty Discharge - Follow Up or Referrals
--- NOTE | 2017-04-03 14:48 | Neurology Progress Note ---
Neurology - PN : Subjective Interval history: Patient seems to be doing really well neurologically. No new problems reported. Getting up and walking with min assist Exam (Progress Note) - Constitutional Vitals: Period Temp Pulse Resp BP Sys/Wade Pulse Ox Last 24 Hr 96.5 F-99.2 F 58-72 16-20 139-171/73-90 90-95 Exam: GENERAL: Patient is in no acute distress. NECK: Neck is supple. There is no JVD. No carotid bruits present. No thyroid masses. CVS: First and second heart sounds are normal. There is no S3 present. Regular rate and rhythm. RESPIRATORY: Lungs are clear to auscultation without any rales or rhonchi. ABDOMEN: Soft and non-tender. Bowel sounds are present. There is no hepatosplenomegaly. EXT: There is no palpable edema. Peripheral pulses are present. Skin: No rashes Central Nervous system: General: Alert, awake and Oriented x 3 Speech: Fluent Comprehension: Intact and normal Facial expressions: Normal Cranial Nerves: CN1/Olfactory: Normal CN II/ Optic: Normal, Visual Buchanan questionable right homonymous hemianopia CN III, and : MAVIS & EOMI CN V: Normal & intact CN VII: face is symmetric CNVIII: Normal CN XI/X/XI/XII: Intact and Normal Motor: Bulk and Tone is normal. Strength in the right 5/5 Strength in the left 5/5 Sensory: Grossly intact for all the modalities of PP, LT and temp sense Reflexes: 1+ and symmetrical Cerebellar function: Normal finger to nose and heel to mandel testing. Toes: Equivocal Gait: Able to get up and walk Results - Labs CBC & BMP: 03/30/17 02:40 04/03/17 11:53 Assessment and Plan (1) New onset of headaches Status: Acute Assessment and plan: This is much better Current Visit: Yes (2) Blurred vision Status: Acute Assessment and plan: This is likely because of left BACKGROUND INVESTIGATOR distribution infarct involving occipital lobe Continue aspirin a day Continue Lipitor Stop Lovenox Current Visit: Yes (3) Hypertension Status: Chronic Assessment and plan: Continue current medications. Check vitals per routine. Current Visit: Yes (4) Drug abuse Status: Acute Assessment and plan: Counseled him regarding cessation of any kind of recreational drug use Current Visit: Yes (5) Acute CVA (cerebrovascular accident) Status: Acute Assessment and plan: Continue aspirin Okay to go home from neuro standpoint Follow-up in 4 week Current Visit: Yes Quality Measures - Stroke Onset of Symptoms Date: 03/27/17 Symptom Onset Unknown: No Specialty Discharge - Follow Up or Referrals Follow up with: Santi Mcgee MD [Physician] - 1 Month
--- NOTE | 2017-04-03 14:57 | Hospitalist Progress Note ---
Assessment and Plan (1) Posterior circulation stroke Status: Acute Assessment and plan: Continue aspirin and statin. Blood pressure medications as prescribed. Awaiting rehab placement. Current Visit: Yes (2) Acute CVA (cerebrovascular accident) Status: Acute Current Visit: Yes (3) Hypertension Status: Chronic Current Visit: Yes Qualifiers: Hypertension type: essential hypertension Qualified Code(s): I10 - Essential (primary) hypertension (4) Hyperlipidemia Status: Chronic Current Visit: Yes Qualifiers: Hyperlipidemia type: unspecified Qualified Code(s): E78.5 - Hyperlipidemia , unspecified (5) Chronic kidney disease Status: Chronic Current Visit: Yes Qualifiers: Chronic kidney disease stage: stage 4 (severe) Qualified Code(s): N18.4 - Chronic kidney disease, stage 4 (severe) (6) Drug abuse Status: Acute Current Visit: Yes Hospitalist: Subjective Interval history: Patient seen and examined. No acute events overnight. Case discussed with nursing staff. Labs reviewed. Patient's family member was at the bedside. I also discussed the case with his ex- Sintia Melara phone #[phone]. She will be taking care of him after discharge. All of her questions were answered. Exam - Constitutional Vitals: Period Temp Pulse Resp BP Sys/Wade Pulse Ox Last 24 Hr 96.5 F-99.2 F 58-72 16-20 139-171/73-90 90-95 Exam: Constitutional System: No distress. No tremulousness. Head: Normocephalic, atraumatic. Ears, Nose and Throat System: No pain or tenderness. No epistaxis or discharge Eyes System: Pupils equal, round, and reactive. Extraocular muscles intact. Neck: Supple, without adenopathy, No jugular venous distention. Respiratory System: Chest clear to auscultation. Cardiovascular System: Heart with regular rate and rhythm. No murmur. GI System: Abdomen soft, nontender. Normo active bowel sounds present. Musculoskeletal System: limbs with no pedal edema. Full distal pulses. Normal capillary refill. Neurological System: Right visual field deficit noted. No other significant neurological deficit. no aphasia Psychiatric System: Conversation is rational Results - Labs CBC & BMP: 03/30/17 02:40 04/03/17 11:53 Lab Results: I have reviewed the past 24 hour labs Quality Measures - Stroke Onset of Symptoms Date: 03/27/17 Symptom Onset Unknown: No Specialty Discharge - Follow Up or Referrals Follow up with: Santi Mcgee MD [Physician] - 1 Month
[2017-04-03] MEDS: ATORVASTATIN 80 MG TABLET PO SCH (20:52)
[2017-04-04] MEDS ORDERED: hydrALAZINE 20 MG/1 ML VIAL IV ONE (08:06)
[2017-04-04] MEDS: INSULIN GLARGINE 100 UNIT/ML SUBCUT SCH (08:37)
[2017-04-04] MEDS: INSULIN LISPRO 100 UNIT/ML SUBCUT SCH (08:37)
[2017-04-04] MEDS: ASPIRIN 325 MG TABLET PO SCH (09:02)
[2017-04-04] MEDS: DOCUSATE SODIUM 100 MG CAPSULE PO SCH (09:03)
[2017-04-04] MEDS: CARVEDILOL 6.25 MG TABLET PO SCH (09:03)
[2017-04-04] MEDS: PANTOPRAZOLE 40 MG TABLET PO SCH (09:04)
[2017-04-04] MEDS: amLODIPine 10 MG TABLET PO SCH (09:04)
--- NOTE | 2017-04-04 10:17 | Discharge Summary ---
<Екатерина Javier - Last Filed: 04/04/17 12:26> Hospital Course - Hospital Course Hospital Course: Mr Soto w/PMHx hypertension, DM, dyslipidemia presented to ED from primary care provider with complaints of high blood pressure and dizziness and left/ frontal headache with throbbing, waxing and waning x3 days. He is not taking medications and has been noncompliant. Hospital Services directly admitted patient to ICU for close monitoring. LABS: potassium 3.0, Creatinine 2.60, A1c 7.9, Calcium 7.8, Toxicology positive for opiates and cannabinoids. Carotids: no significant atherosclerotic disease. ECHO: Normal LV systolic function; EF 55%. CXR: Bibasilar atelectatic change/pneumonic infiltrates and effusions; Mild cardiac enlargement. Brain MRI: a 4.5 cm area of restricted diffusion in a left SUPERVISOR SHOP distribution compatible with ischemia between 6 hours and 4 days old. No parenchymal hemorrhage. Head MRA: No abnormalities involving the anterior cerebral circulation. Neurology consult: blurred vision is most likely related to left SUPERVISOR SHOP distribution infarct involving occipital lobe: and recommends continue ASA, lipitor. Patient will need to follow up with Neurology in 4 weeks. Today 04/04/17 patient is stable. He continues to improve and is able to ambulate with minimal assistance. He will be discharged to rehab for continuation of care today. He will need to follow up with Dr Mcgee in 1 month. He will need to continue ASA, lipitor, Norvasc, coreg, hydralazine, clonidine and lantus to keep blood pressure under control and diabetes managed. He will need to follow up with primary care physician. Further recommendations with discharge planning and care to follow up Dr Flaherty. I have personally seen and examined this patient today. I agree with the below note as prepared by the advanced practice provider. I agree with the assessment and plan. The patient is being transferred to [facility] today for continued rehabilitation. His medications have been reviewed with him and new prescriptions printed and given at the time of discharge. He received diabetic education as well. His medications were reviewed and reconciled. He has a persistent right visual field deficit related to his posterior distribution stroke. He was instructed not to drive. The case was also discussed with his ex- who is his primary caregiver. Specialty Discharge - Follow Up or Referrals Follow up with: Santi Mcgee MD [Physician] - 1 Month (We will call with this appointment time.) Discharge Plan - Discharge Data Disposition: Swing Bed, Hos Based, [facility] - Discharge Medications New amLODIPine [Norvasc] 10 mg PO DAILY #30 tablet Aspirin Tab 325 mg PO DAILY tablet Atorvastatin [Lipitor] 80 mg PO BEDTIME #30 tablet Carvedilol [Coreg] 6.25 mg PO BID #60 tablet hydrALAZINE TAB [Apresoline Tab] 50 mg PO TID #90 tablet HYDROcodone/ACETAMIN 5-325 [[place] 5-325] 1 tablet PO Q4H PRN #20 tablet PRN Reason: Pain Mild (1-3) cloNIDine TAB [Catapres Tab] 0.2 mg PO BID #60 tablet Insulin Glargine [Lantus] 10 unit SUBCUT DAILY #1 vial - Follow Up or Referral Follow Up: Santi Mcgee MD [Physician] - 1 Month (We will call with this appointment time.) - Forms/Instructions Instructions: Ischemic Stroke (DC) Exam - Constitutional Vitals: Period Temp Pulse Resp BP Sys/Wade Pulse Ox Last 24 Hr 98.0 F-100.0 F 58-75 12-20 131-193/76-100 93-98 Discharge Results Labs on day of discharge: Labs from last 24 hours 04/04/17 04/03/17 04/03/17 07:31 20:14 16:31 Sodium Potassium Chloride Carbon Dioxide Anion Gap BUN Creatinine GFR Calculation BUN/Creatinine Ratio Glucose POC Glucose 194 H 215 H 194 H Calculated Osmolality Calcium Urine MEENA Interpret 04/03/17 04/03/17 04/02/17 12:26 11:53 11:30 Sodium 139 Potassium 3.8 Chloride 107 Carbon Dioxide 26 Anion Gap 9.8 BUN 21 H Creatinine 2.50 H GFR Calculation 31 BUN/Creatinine Ratio 8.00 Glucose 188 H POC Glucose 181 H Calculated Osmolality 284.5 Calcium 7.5 L Urine MEENA Interpret DS: Provider Date of admission: 03/29/17 18:41 Primary care physician: Nick Quinn MD Attending physician on admission: Kong Gates MD Consults: 03/29/17 18:44 Consult to Physician [CONS] Routine Comment: Consulting Provider: Santi Mcgee When should Consulting Provider be notified: In am Person Notified: Dr. Gonzalez nurse Date Notified: 03/30/17 Time Notified: 09:15 03/29/17 19:08 Consult to Case Mgmt/Social Srvs [CONS] Routine Reason for Case Mgmt/Social Srvs: Discharge Planning Consult to Occupational Therapy [CONS] Routine Reason for Occupational Therapy: Evaluate and Treat Consult Comment: Stroke Consult to Physical Therapy [CONS] Routine Reason for Physical Therapy: Evaluate and Treat Consult Comment: stroke 03/31/17 14:19 Consult to Physician [CONS] Routine Comment: Possible nephrotic syndrome Consulting Provider: Consult to Specialist Group: Nephrology When should Consulting Provider be notified: In am 04/01/17 18:55 Consult to Case Mgmt/Social Srvs [CONS] Routine Reason for Case Mgmt/Social Srvs: Equipment Consult Comment: pt needs blood pressure cuff at discharge to monitor BP Consult to [facility], Educator [CONS] Routine Reason for Section Maintainer: Diabetes Education Other Consult Comment: pt needs glucometer at discharge 04/02/17 10:45 Consult to Case Mgmt/Social Srvs [CONS] Routine Reason for Case Mgmt/Social Srvs: Rehab Consult Comment: andry betancur Discharging clinician: Екатерина Javier NP <López Flaherty - Last Filed: 04/04/17 14:17> Hospital Course - Time spent with patient Time with patient DS: Greater than 30 minutes (Total discharge time for this patient, including [id number] time, clinical documentation, medication reconciliation, and discharge planning was 42 minutes.) Diagnosis - Discharge Diagnosis (1) Posterior circulation stroke Status: Acute (2) Acute CVA (cerebrovascular accident) Status: Acute (3) Hypertension Status: Chronic (4) Hyperlipidemia Status: Chronic (5) Chronic kidney disease Status: Chronic (6) Drug abuse Status: Acute (7) Right homonymous hemianopsia Status: Acute (8) Nephrotic syndrome Status: Acute Discharge Plan - Discharge Data Condition at Discharge: Stable Discharge Diet: diabetic diet Activity: resume usual activities as tolerated, as per physical therapy Hygiene: no restrictions Weight Bearing at Discharge: full weight bearing Driving: not until seen by doctor Contact your physician if you experience:: Difficulty voiding, Nausea/Vomiting - Forms/Instructions Additional Discharge Instructions: Follow-up with primary care physician and [facility]. Take medications as prescribed. DS: Provider Expected date of discharge: 04/04/17
[2017-04-04 11:12] VITALS: BP 131/76
--- NOTE | 2017-04-04 13:00 | Nephrology Progress Note ---
Nephrology - PN: Subj Interval history: No new complaints today Exam (PN)-Nephrology - Vital Signs Vital signs: Period Temp Pulse Resp BP Sys/Wade Pulse Ox Last 24 Hr 98.0 F-100.0 F 58-75 12-20 131-193/76-100 93-98 Exam: ENT: Normal Cardiovascular: Regular rate and rhythm. No murmur rub or gallop Lungs: Clear Extremities: No edema - Lab 03/30/17 02:40 04/03/17 11:53 Most recent lab results Calcium 7.5 MG/DL (8.5-10.1) L 04/03/17 11:53 Assessment and Plan (1) Nephrotic syndrome Status: Acute Assessment and plan: 51-year-old man with: * Cerebrovascular disease. Acute CVA * Hypertension. Improved control * Diabetes mellitus * CRF stage III. Outpatient follow-up will be scheduled * Nephrotic syndrome. SPIE negative for light chains * Hyperlipidemia Current Visit: Yes (2) Acute CVA (cerebrovascular accident) Status: Acute Current Visit: Yes (3) Chronic kidney disease Status: Chronic Current Visit: Yes Qualifiers: Chronic kidney disease stage: stage 4 (severe) Qualified Code(s): N18.4 - Chronic kidney disease, stage 4 (severe) (4) Diabetes mellitus Status: Chronic Current Visit: Yes Qualifiers: Diabetes mellitus type: type 2 (5) Hyperlipidemia Status: Chronic Current Visit: Yes Qualifiers: Hyperlipidemia type: unspecified Qualified Code(s): E78.5 - Hyperlipidemia , unspecified (6) Hypertension Status: Chronic Current Visit: Yes Qualifiers: Hypertension type: essential hypertension Qualified Code(s): I10 - Essential (primary) hypertension Specialty Discharge - Follow Up or Referrals Follow up with: Santi Mcgee MD [Physician] - 1 Month (We will call with this appointment time.)
== END 2017-04-04 13:11 | disposition swing bed (61) | DRG 65 ==
LOC: SUATTDRO 18:41 → N.CC 18:41 → N.4E 04-02 14:32
PROVIDERS: ADMIT Family Medicine; ATTEND Family Medicine

== ENCOUNTER 2018-10-20 22:22 | Inpatient (IN) ==
[2018-10-20] MEDS ORDERED: HEPARIN/NACL 0.9% 2 UNITS/ML 1,500 ML IV ONE (22:50)
[2018-10-20] MEDS ORDERED: HYDROmorphone 2 MG/1 ML VIAL ONE (22:50)
[2018-10-20] MEDS ORDERED: MIDAZOLAM 2 MG/2 ML VIAL ONE (22:50)
[2018-10-20] MEDS ORDERED: LIDOCAINE 1% 20 ML VIAL ONE (22:50)
[2018-10-20] MEDS ORDERED: NITROGLYCERIN DRIP 50 MG/250 ML BOTTLE IV PRN (23:25)
[2018-10-21] MEDS ORDERED: ONDANSETRON 4 MG/2 ML VIAL ONE ×2 (00:04→00:55)
[2018-10-21] MEDS ORDERED: HEPARIN DRIP 25,000 UNITS/500 ML PREMIX IV SCH (00:30)
[2018-10-21] MEDS ORDERED: GLUCAGON 1 MG VIAL IM PRN (00:34)
[2018-10-21] MEDS ORDERED: ACETAMINOPHEN/CODEINE 300-30 MG TABLET PO PRN (00:34)
[2018-10-21] MEDS ORDERED: ZALEPLON 5 MG CAPSULE PO PRN (00:34)
[2018-10-21] MEDS ORDERED: DEXTROSE 50% 25 GM/50 ML SYRINGE IV PRN (00:34)
[2018-10-21] MEDS ORDERED: NITROGLYCERIN SL 0.4 MG TABLET SL PRN (00:34)
[2018-10-21] MEDS: ONDANSETRON 4 MG/2 ML VIAL IV PRN ×2 (00:57→08:05)
[2018-10-21 02:22] LABS: Basophils # 0.1 10*3/uL (0.0-0.2); Basophils % 0.5 % (0.0-0.8); Eosinophils # 0.1 10*3/uL (0.0-0.87); Hematocrit 25.7 VOL% (42.0-52.0); Hemoglobin 8.2 GM/DL (14.0-18.0); Immature Granulocytes % 0.6 %; Immature Granulocytes Absolute 0.06 #; Lymphocytes # 1.2 10*3/uL (1.4-4.0); Lymphocytes % 11.8 % (21.2-54.2); Mean Corpuscular HGB Conc 31.9 GM/DL (32-36); Mean Corpuscular Hemoglobin 31 PG (27-34); Mean Platelet Volume 9.4 FL (9.6-12.0); Monocytes # 0.7 10*3/uL (0.11-0.8); Monocytes % 6.9 % (1.7-12.7); Neutrophils # 8.2 10*3/uL (1.4-7.4); Neutrophils % 79.2 % (38.7-73.9); Platelet Count 202 T/CUMM (130-400); Red Blood Count 2.65 MC/CUMM (3.8-5.5); Red Cell Distribution Width 14.9 % (9.3-17.3); White Blood Count 10.3 T/CUMM (4-12)
[2018-10-21 02:56] LABS: Calcium 7.2 MG/DL (8.5-10.1); Osmolality,Calculated 294.3 MOS/KG (273-304); Potassium 5.1 MMOL/L (3.5-5.1); Risk Ratio 3.33; VLDL CHOLESTEROL 12.2 MG/DL
[2018-10-21 03:19] LABS: CKMB % 8.3 %
[2018-10-21 03:20] LABS: Troponin I > 200.000 NG/ML (0.00-0.045)
[2018-10-21] MEDS ORDERED: CARVEDILOL 6.25 MG TABLET PO SCH (08:00)
[2018-10-21] MEDS: ASPIRIN EC 81 MG TABLET PO SCH (09:29)
[2018-10-21] MEDS: TICAGRELOR 90 MG TABLET PO SCH ×2 (09:29→21:17)
[2018-10-21] MEDS: PANTOPRAZOLE 40 MG TABLET PO SCH (09:29)
[2018-10-21] MEDS: CARVEDILOL 12.5 MG TABLET PO SCH ×2 (09:29→21:17)
[2018-10-21 10:08] LABS: Troponin I > 200.000 NG/ML (0.00-0.045)
[2018-10-21 17:59] LABS: CKMB % 9.3 %
[2018-10-21] MEDS: ATORVASTATIN 80 MG TABLET PO SCH (21:19)
[2018-10-22 05:14] LABS: Basophils % 0.3 % (0.0-0.8); Eosinophils # 0.1 10*3/uL (0.0-0.87); Eosinophils % 0.8 % (0.00-10.9); Hematocrit 24.9 VOL% (42.0-52.0); Hemoglobin 7.9 GM/DL (14.0-18.0); Immature Granulocytes % 0.4 %; Immature Granulocytes Absolute 0.04 #; Mean Corpuscular HGB Conc 31.7 GM/DL (32-36); Mean Corpuscular Hemoglobin 31 PG (27-34); Mean Corpuscular Volume 96.9 FL (87-102); Mean Platelet Volume 10.1 FL (9.6-12.0); Monocytes # 0.7 10*3/uL (0.11-0.8); Monocytes % 7.2 % (1.7-12.7); Neutrophils # 8.2 10*3/uL (1.4-7.4); Neutrophils % 81.3 % (38.7-73.9); Platelet Count 206 T/CUMM (130-400); Red Blood Count 2.57 MC/CUMM (3.8-5.5); Red Cell Distribution Width 14.9 % (9.3-17.3)
[2018-10-22 05:43] LABS: Calcium 7.3 MG/DL (8.5-10.1); Osmolality,Calculated 289.7 MOS/KG (273-304); Potassium 5.5 MMOL/L (3.5-5.1)
[2018-10-22 05:52] LABS: Calcium 7.3 MG/DL (8.5-10.1); Osmolality,Calculated 292.5 MOS/KG (273-304); Potassium 5.5 MMOL/L (3.5-5.1)
[2018-10-22] MEDS: PANTOPRAZOLE 40 MG TABLET PO SCH (08:00)
[2018-10-22] MEDS: CARVEDILOL 12.5 MG TABLET PO SCH ×2 (08:00→20:53)
[2018-10-22] MEDS: ASPIRIN EC 81 MG TABLET PO SCH (08:01)
[2018-10-22] MEDS: TICAGRELOR 90 MG TABLET PO SCH ×2 (08:01→20:53)
[2018-10-22 12:02] LABS: Hepatitis A Ab IgM Quant 0.14 Index; Hepatitis A Ab IgM Result Negative (Negative); Hepatitis B Core IgM Quant 0.12 Index; Hepatitis B Core IgM Result Negative (Negative); Hepatitis B Surface Ag Quant 0.12 Index; Hepatitis B Surface Ag Result Negative (Negative); Hepatitis C Virus Ab Quant 0.04 Index; Hepatitis C Virus Ab Result Negative (Negative)
[2018-10-22] MEDS: LIDOCAINE/PRILOCAINE CREAM 5 GM TUBE TOP PRN (12:43)
[2018-10-22] MEDS: ATORVASTATIN 80 MG TABLET PO SCH (20:53)
[2018-10-23 05:26] LABS: Basophils % 0.4 % (0.0-0.8); Eosinophils # 0.1 10*3/uL (0.0-0.87); Eosinophils % 1.6 % (0.00-10.9); Hemoglobin 6.7 GM/DL (14.0-18.0); Immature Granulocytes % 0.5 %; Immature Granulocytes Absolute 0.04 #; Lymphocytes # 0.7 10*3/uL (1.4-4.0); Lymphocytes % 10.2 % (21.2-54.2); Mean Corpuscular HGB Conc 31.9 GM/DL (32-36); Mean Corpuscular Hemoglobin 31 PG (27-34); Mean Corpuscular Volume 97.7 FL (87-102); Mean Platelet Volume 10.4 FL (9.6-12.0); Monocytes # 0.8 10*3/uL (0.11-0.8); Monocytes % 10.9 % (1.7-12.7); Neutrophils # 5.6 10*3/uL (1.4-7.4); Neutrophils % 76.4 % (38.7-73.9); Platelet Count 182 T/CUMM (130-400); Red Blood Count 2.15 MC/CUMM (3.8-5.5); Red Cell Distribution Width 14.9 % (9.3-17.3); White Blood Count 7.3 T/CUMM (4-12)
[2018-10-23 05:40] LABS: Calcium 6.9 MG/DL (8.5-10.1); Osmolality,Calculated 285.8 MOS/KG (273-304); Potassium 4.8 MMOL/L (3.5-5.1)
[2018-10-23] MEDS: LIDOCAINE/PRILOCAINE CREAM 5 GM TUBE TOP PRN (07:57)
[2018-10-23] MEDS ORDERED: SODIUM CHLORIDE 0.9% 1,000 ML IV PRN ×2 (08:18→08:22)
[2018-10-23 08:44] LABS: % Iron Saturation 8.8 % (18-50)
[2018-10-23] MEDS: CARVEDILOL 12.5 MG TABLET PO SCH ×2 (09:14→20:52)
[2018-10-23] MEDS: TICAGRELOR 90 MG TABLET PO SCH ×2 (09:14→20:52)
[2018-10-23] MEDS: PANTOPRAZOLE 40 MG TABLET PO SCH (09:14)
[2018-10-23] MEDS: ASPIRIN EC 81 MG TABLET PO SCH (09:14)
[2018-10-23] MEDS: ATORVASTATIN 80 MG TABLET PO SCH (20:52)
[2018-10-24 03:58] LABS: Basophils % 0.2 % (0.0-0.8); Eosinophils # 0.2 10*3/uL (0.0-0.87); Eosinophils % 2.3 % (0.00-10.9); Hematocrit 24.5 VOL% (42.0-52.0); Hemoglobin 7.9 GM/DL (14.0-18.0); Immature Granulocytes % 0.6 %; Immature Granulocytes Absolute 0.04 #; Lymphocytes # 0.7 10*3/uL (1.4-4.0); Lymphocytes % 11.1 % (21.2-54.2); Mean Corpuscular HGB Conc 32.2 GM/DL (32-36); Mean Corpuscular Hemoglobin 30 PG (27-34); Mean Corpuscular Volume 92.8 FL (87-102); Mean Platelet Volume 10.4 FL (9.6-12.0); Monocytes # 0.9 10*3/uL (0.11-0.8); Monocytes % 13.1 % (1.7-12.7); Neutrophils # 4.8 10*3/uL (1.4-7.4); Neutrophils % 72.7 % (38.7-73.9); Platelet Count 168 T/CUMM (130-400); Red Blood Count 2.64 MC/CUMM (3.8-5.5); Red Cell Distribution Width 16.4 % (9.3-17.3); White Blood Count 6.6 T/CUMM (4-12)
[2018-10-24 04:21] LABS: Osmolality,Calculated 277.1 MOS/KG (273-304); Potassium 4.6 MMOL/L (3.5-5.1)
[2018-10-24] MEDS: TICAGRELOR 90 MG TABLET PO SCH ×2 (08:51→22:25)
[2018-10-24] MEDS: ASPIRIN EC 81 MG TABLET PO SCH (08:51)
[2018-10-24] MEDS: CARVEDILOL 12.5 MG TABLET PO SCH ×2 (08:51→22:25)
[2018-10-24] MEDS: PANTOPRAZOLE 40 MG TABLET PO SCH (08:51)
[2018-10-24] MEDS ORDERED: IRON SUCROSE 200 MG in SODIUM CHLORIDE 0.9% 100 ML IV PRN (09:33)
[2018-10-24] MEDS ORDERED: EPOETIN ALFA 2,000 UNIT/1 ML VIAL IV PRN (09:35)
[2018-10-24] MEDS: ATORVASTATIN 80 MG TABLET PO SCH (22:26)
[2018-10-25 08:59] LABS: Basophils % 0.3 % (0.0-0.8); Eosinophils # 0.2 10*3/uL (0.0-0.87); Eosinophils % 3.4 % (0.00-10.9); Hematocrit 27.7 VOL% (42.0-52.0); Hemoglobin 8.9 GM/DL (14.0-18.0); Immature Granulocytes % 0.4 %; Immature Granulocytes Absolute 0.03 #; Lymphocytes # 0.9 10*3/uL (1.4-4.0); Lymphocytes % 12.3 % (21.2-54.2); Mean Corpuscular HGB Conc 32.1 GM/DL (32-36); Mean Corpuscular Hemoglobin 30 PG (27-34); Mean Corpuscular Volume 92.3 FL (87-102); Monocytes # 0.8 10*3/uL (0.11-0.8); Monocytes % 11.8 % (1.7-12.7); Neutrophils % 71.8 % (38.7-73.9); Platelet Count 213 T/CUMM (130-400); Red Cell Distribution Width 15.9 % (9.3-17.3)
[2018-10-25 09:25] LABS: Calcium 7.4 MG/DL (8.5-10.1); Osmolality,Calculated 275.2 MOS/KG (273-304)
[2018-10-25 12:53] VITALS: BP 114/61
[2018-10-25] MEDS: ASPIRIN EC 81 MG TABLET PO SCH (12:54)
[2018-10-25] MEDS: TICAGRELOR 90 MG TABLET PO SCH (12:54)
[2018-10-25] MEDS: PANTOPRAZOLE 40 MG TABLET PO SCH (12:54)
[2018-10-25] MEDS: CARVEDILOL 12.5 MG TABLET PO SCH (12:54)
== END 2018-10-25 16:37 | disposition home or self-care (01) | DRG 246 ==
LOC: N.CL 22:22 → N.ICU 23:26 → N.TELES 10-22 09:11
PROVIDERS: ADMIT Internal Medicine Cardiovascular Disease; ATTEND Internal Medicine Cardiovascular Disease
PROC: CLCCHCL (ICD-10-PCS; 2018-10-20 23:00)

== ENCOUNTER 2020-05-07 15:38 | Observation (INO) ==
[2020-05-07] MEDS ORDERED: diphenhydrAMINE CAP 25 MG CAPSULE PO PRN (17:31)
[2020-05-07] MEDS ORDERED: GLUCAGON 1 MG VIAL IM PRN (17:31)
[2020-05-07] MEDS ORDERED: LACTULOSE 20 GM/30 ML UDCUP PO PRN (17:31)
[2020-05-07] MEDS ORDERED: guaiFENesin/DM ER 600-30 MG TABLET PO PRN (17:31)
[2020-05-07] MEDS ORDERED: ACETAMINOPHEN 325 MG TABLET PO PRN (17:31)
[2020-05-07] MEDS ORDERED: BISACODYL 5 MG TABLET PO PRN (17:31)
[2020-05-07] MEDS ORDERED: ONDANSETRON 4 MG/2 ML VIAL IV PRN (17:31)
[2020-05-07] MEDS ORDERED: CALCIUM CARBONATE CHEW 500 MG TABLET PO PRN (17:31)
[2020-05-07] MEDS ORDERED: ALUMINUM/MAGNES/SIMETH MAX STR 30 ML UDCUP PO PRN (17:31)
[2020-05-07] MEDS ORDERED: SIMETHICONE CHEW 125 MG TABLET PO PRN (17:31)
[2020-05-07] MEDS ORDERED: DEXTROSE 50% 25 GM/50 ML VIAL IV PRN (17:31)
[2020-05-07] MEDS ORDERED: DOCUSATE SODIUM 100 MG CAPSULE PO PRN (17:31)
[2020-05-07] MEDS ORDERED: NICOTINE 21 MG/24 HR PATCH TRANSDERM PRN (17:31)
[2020-05-07] MEDS ORDERED: NITROGLYCERIN SL 0.4 MG TABLET SL PRN (17:44)
[2020-05-07] MEDS: ALBUTEROL 2.5 MG/3 ML NEB RESP TX SCH (19:05)
[2020-05-07] MEDS ORDERED: ATORVASTATIN 80 MG TABLET PO SCH (21:00)
[2020-05-07] MEDS: GABAPENTIN 100 MG CAPSULE PO SCH (22:09)
[2020-05-07] MEDS: TICAGRELOR 90 MG TABLET PO SCH (22:09)
[2020-05-07] MEDS: carvediloL 25 MG TABLET PO SCH (22:09)
[2020-05-08] MEDS: ALBUTEROL 2.5 MG/3 ML NEB RESP TX SCH ×3 (01:47→13:35)
[2020-05-08 05:45] LABS: Basophils # 0.1 10*3/uL (0.0-0.2); Eosinophils # 0.2 10*3/uL (0.0-0.87); Hematocrit 32.1 VOL% (42.0-52.0); Hemoglobin 10.3 GM/DL (14.0-18.0); Immature Granulocytes % 0.2 %; Immature Granulocytes Absolute 0.01 #; Mean Corpuscular HGB Conc 32.1 GM/DL (32-36); Mean Corpuscular Volume 97.9 FL (87-102); Mean Platelet Volume 9.8 FL (9.6-12.0); Monocytes % 7.6 % (1.7-12.7); Neutrophils % 70.2 % (38.7-73.9); Platelet Count 206 T/CUMM (130-400); Red Blood Count 3.28 MC/CUMM (3.8-5.5); Red Cell Distribution Width 14.5 % (9.3-17.3); White Blood Count 6.1 T/CUMM (4-12)
[2020-05-08 06:31] LABS: Albumin 2.5 G/DL (3.4-5.0); Bilirubin,Total 0.7 MG/DL (0.2-1.0); Calcium 7.1 MG/DL (8.5-10.1); Osmolality,Calculated 288.5 MOS/KG (273-304); Risk Ratio 2.17; Thyroid Stimulating Hormone 3.42 uIU/ml (0.358-3.74); Total Protein 5.4 G/DL (6.4-8.3); VLDL CHOLESTEROL 12.2 MG/DL
[2020-05-08] MEDS ORDERED: CITALOPRAM 20 MG TABLET PO SCH (09:00)
[2020-05-08] MEDS ORDERED: ASPIRIN EC 81 MG TABLET PO SCH (09:00)
[2020-05-08] MEDS ORDERED: INSULIN GLARGINE 100 UNIT/ML SUBCUT SCH (09:00)
[2020-05-08] MEDS ORDERED: PANTOPRAZOLE 40 MG TABLET PO SCH ×2 (09:00)
[2020-05-08 09:57] LABS: CKMB % 2.5 %; Troponin I 0.056 NG/ML (0.00-0.045)
[2020-05-08] MEDS: TICAGRELOR 90 MG TABLET PO SCH (11:48)
[2020-05-08] MEDS: carvediloL 25 MG TABLET PO SCH (11:49)
[2020-05-08] MEDS: GABAPENTIN 100 MG CAPSULE PO SCH ×2 (11:50→16:15)
[2020-05-08] MEDS ORDERED: DEXTROSE 50% 25 GM/50 ML VIAL IV PRN (14:09)
[2020-05-08] MEDS ORDERED: GLUCAGON 1 MG VIAL IM PRN (14:09)
[2020-05-08 16:49] VITALS: BP 134/79
== END 2020-05-08 19:00 | disposition home or self-care (01) ==
LOC: N.TELES
PROVIDERS: ADMIT Internal Medicine; ATTEND Internal Medicine

== ENCOUNTER 2020-06-30 18:55 | Inpatient (IN) ==
[2020-06-30] MEDS ORDERED: PANTOPRAZOLE INJ 80 MG in SODIUM CHLORIDE 0.9% 100 ML IV STA (19:18)
[2020-06-30 19:56] LABS: Basophils # 0.1 10*3/uL (0.0-0.2); Basophils % 0.7 % (0.0-0.8); Eosinophils # 0.1 10*3/uL (0.0-0.87); Eosinophils % 1.7 % (0.00-10.9); Hematocrit 31.5 VOL% (42.0-52.0); Hemoglobin 10.4 GM/DL (14.0-18.0); Immature Granulocytes % 0.4 %; Immature Granulocytes Absolute 0.03 #; Lymphocytes % 14.1 % (21.2-54.2); Mean Corpuscular Volume 95.2 FL (87-102); Mean Platelet Volume 9.2 FL (9.6-12.0); Monocytes % 8.4 % (1.7-12.7); Neutrophils % 74.7 % (38.7-73.9); Platelet Count 169 T/CUMM (130-400); Red Blood Count 3.31 MC/CUMM (3.8-5.5); Red Cell Distribution Width 14.5 % (9.3-17.3)
[2020-06-30] MEDS ORDERED: PANTOPRAZOLE 40 MG VIAL IV ONE ×2 (20:06→20:09)
[2020-06-30 20:07] LABS: Albumin 2.7 G/DL (3.4-5.0); Bilirubin,Total 0.8 MG/DL (0.2-1.0); Calcium 7.5 MG/DL (8.5-10.1); Osmolality,Calculated 277.7 MOS/KG (273-304); Total Protein 6.4 G/DL (6.4-8.3)
[2020-06-30 20:24] LABS: INR 1.1; PT Patient Result 11.6 SECS (9.8-11.9); Partial Thromboplastin Time 33.2 SECS (23.9-33.8)
[2020-06-30] MEDS ORDERED: GLUCAGON 1 MG VIAL IM PRN (21:28)
[2020-06-30] MEDS ORDERED: ONDANSETRON 4 MG/2 ML VIAL IV PRN (21:28)
[2020-06-30] MEDS ORDERED: DEXTROSE 50% 25 GM/50 ML VIAL IV PRN (21:28)
[2020-06-30] MEDS: PANTOPRAZOLE INJ 200 MG in SODIUM CHLORIDE 0.9% 250 ML IV SCH (22:55)
[2020-07-01 06:31] LABS: Basophils % 0.5 % (0.0-0.8); Eosinophils # 0.1 10*3/uL (0.0-0.87); Eosinophils % 1.8 % (0.00-10.9); Hematocrit 29.2 VOL% (42.0-52.0); Hemoglobin 9.6 GM/DL (14.0-18.0); Immature Granulocytes % 0.3 %; Immature Granulocytes Absolute 0.02 #; Lymphocytes # 1.3 10*3/uL (1.4-4.0); Lymphocytes % 20.5 % (21.2-54.2); Mean Corpuscular HGB Conc 32.9 GM/DL (32-36); Mean Corpuscular Volume 94.5 FL (87-102); Mean Platelet Volume 9.4 FL (9.6-12.0); Neutrophils % 66.9 % (38.7-73.9); Platelet Count 153 T/CUMM (130-400); Red Blood Count 3.09 MC/CUMM (3.8-5.5); Red Cell Distribution Width 14.5 % (9.3-17.3); White Blood Count 6.2 T/CUMM (4-12)
[2020-07-01] MEDS: carvediloL 25 MG TABLET PO SCH ×2 (09:47→20:18)
[2020-07-01] MEDS: GABAPENTIN 100 MG CAPSULE PO SCH ×3 (09:47→20:18)
[2020-07-01 11:44] LABS: Hematocrit 29.2 VOL% (42.0-52.0); Hemoglobin 9.5 GM/DL (14.0-18.0)
[2020-07-01] MEDS ORDERED: BISACODYL 5 MG TABLET PO ONE (12:00)
[2020-07-01 14:09] LABS: % Iron Saturation 26.8 % (18-50)
[2020-07-01 17:48] LABS: Hematocrit 30.6 VOL% (42.0-52.0)
[2020-07-01] MEDS ORDERED: POLYETHYLENE GLYCOL POWDER 255 GM BOTTLE PO ONE (18:00)
[2020-07-01] MEDS: ATORVASTATIN 80 MG TABLET PO SCH (20:18)
[2020-07-01] MEDS ORDERED: MAGNESIUM CITRATE 300 ML BOTTLE PO ONE (21:00)
[2020-07-01] MEDS: PANTOPRAZOLE INJ 200 MG in SODIUM CHLORIDE 0.9% 250 ML IV SCH (23:38)
[2020-07-02 01:21] LABS: Hematocrit 30.5 VOL% (42.0-52.0)
[2020-07-02 01:37] LABS: INR 1.1; PT Patient Result 11.7 SECS (9.8-11.9)
[2020-07-02 01:41] LABS: Calcium 7.6 MG/DL (8.5-10.1)
[2020-07-02] MEDS ORDERED: LACTATED RINGERS 1,000 ML IV SCH (08:00)
[2020-07-02] MEDS ORDERED: LIDOCAINE 2% 5 ML VIAL ONE (12:46)
[2020-07-02] MEDS: SODIUM CHLORIDE 0.9% 1,000 ML IV SCH (12:47)
[2020-07-02] MEDS ORDERED: ETOMIDATE 20 MG/10 ML VIAL IV ONE (12:49)
[2020-07-02] MEDS ORDERED: propofoL 200 MG/20 ML VIAL IV ONE ×4 (12:49→13:54)
[2020-07-02] MEDS ORDERED: ePHEDrine 50 MG/ML VIAL ONE (13:17)
[2020-07-02] MEDS ORDERED: SODIUM CHLORIDE 0.9% 1,000 ML IV SCH (13:47)
[2020-07-02] MEDS: GABAPENTIN 100 MG CAPSULE PO SCH ×2 (18:27→21:48)
[2020-07-02] MEDS: carvediloL 25 MG TABLET PO SCH ×2 (18:27→21:48)
[2020-07-02] MEDS: ATORVASTATIN 80 MG TABLET PO SCH (21:48)
[2020-07-03 06:32] LABS: Basophils % 0.2 % (0.0-0.8); Eosinophils # 0.1 10*3/uL (0.0-0.87); Eosinophils % 0.9 % (0.00-10.9); Hemoglobin 9.5 GM/DL (14.0-18.0); Immature Granulocytes % 0.5 %; Immature Granulocytes Absolute 0.07 #; Lymphocytes # 0.5 10*3/uL (1.4-4.0); Lymphocytes % 3.7 % (21.2-54.2); Mean Corpuscular HGB Conc 32.8 GM/DL (32-36); Mean Corpuscular Volume 94.8 FL (87-102); Mean Platelet Volume 10.3 FL (9.6-12.0); Monocytes % 8.4 % (1.7-12.7); Neutrophils % 86.3 % (38.7-73.9); Platelet Count 151 T/CUMM (130-400); Red Blood Count 3.06 MC/CUMM (3.8-5.5); Red Cell Distribution Width 13.9 % (9.3-17.3); White Blood Count 12.9 T/CUMM (4-12)
[2020-07-03] MEDS: PANTOPRAZOLE INJ 200 MG in SODIUM CHLORIDE 0.9% 250 ML IV SCH (06:48)
[2020-07-03 06:53] LABS: Calcium 6.6 MG/DL (8.5-10.1); Osmolality,Calculated 274.4 MOS/KG (273-304)
[2020-07-03 07:01] LABS: Eosinophils 3 % (0-10); Hypochromasia 1+; Lymphocytes 4 % (20-55); Microcytosis 1+; Ovalocytes Slight; Platelet Estimate Adequate; Segmented Neutrophils 84 % (50-85); Total Cells Counted 100
[2020-07-03] MEDS: GABAPENTIN 100 MG CAPSULE PO SCH ×3 (09:37→21:13)
[2020-07-03] MEDS: carvediloL 25 MG TABLET PO SCH ×2 (09:38→21:13)
[2020-07-03] MEDS: SODIUM CHLORIDE 0.9% 1,000 ML IV SCH (15:31)
[2020-07-03] MEDS: ATORVASTATIN 80 MG TABLET PO SCH (21:13)
[2020-07-04 06:24] LABS: Basophils % 0.3 % (0.0-0.8); Eosinophils # 0.3 10*3/uL (0.0-0.87); Eosinophils % 2.9 % (0.00-10.9); Hematocrit 24.8 VOL% (42.0-52.0); Hemoglobin 8.3 GM/DL (14.0-18.0); Immature Granulocytes % 0.4 %; Immature Granulocytes Absolute 0.04 #; Lymphocytes # 1.3 10*3/uL (1.4-4.0); Mean Corpuscular HGB Conc 33.5 GM/DL (32-36); Mean Corpuscular Volume 92.9 FL (87-102); Mean Platelet Volume 10.2 FL (9.6-12.0); Monocytes % 7.6 % (1.7-12.7); Neutrophils % 74.8 % (38.7-73.9); Platelet Count 127 T/CUMM (130-400); Red Blood Count 2.67 MC/CUMM (3.8-5.5); Red Cell Distribution Width 13.7 % (9.3-17.3); White Blood Count 8.9 T/CUMM (4-12)
[2020-07-04 06:44] LABS: Calcium 7.1 MG/DL (8.5-10.1); Osmolality,Calculated 271.5 MOS/KG (273-304)
[2020-07-04] MEDS: GABAPENTIN 100 MG CAPSULE PO SCH ×3 (09:37→21:40)
[2020-07-04] MEDS: carvediloL 25 MG TABLET PO SCH ×2 (09:38→21:40)
[2020-07-04] MEDS: PANTOPRAZOLE INJ 200 MG in SODIUM CHLORIDE 0.9% 250 ML IV SCH (09:40)
[2020-07-04 13:59] LABS: Basophils % 0.3 % (0.0-0.8); Eosinophils # 0.3 10*3/uL (0.0-0.87); Eosinophils % 3.3 % (0.00-10.9); Hematocrit 26.3 VOL% (42.0-52.0); Hemoglobin 8.8 GM/DL (14.0-18.0); Immature Granulocytes % 0.5 %; Immature Granulocytes Absolute 0.04 #; Lymphocytes # 1.2 10*3/uL (1.4-4.0); Lymphocytes % 14.2 % (21.2-54.2); Mean Corpuscular HGB Conc 33.5 GM/DL (32-36); Mean Corpuscular Volume 92.9 FL (87-102); Mean Platelet Volume 9.3 FL (9.6-12.0); Monocytes % 7.7 % (1.7-12.7); Platelet Count 132 T/CUMM (130-400); Red Blood Count 2.83 MC/CUMM (3.8-5.5); Red Cell Distribution Width 13.7 % (9.3-17.3); White Blood Count 8.7 T/CUMM (4-12)
[2020-07-04] MEDS: ATORVASTATIN 80 MG TABLET PO SCH (21:40)
[2020-07-05 06:15] LABS: Basophils % 0.3 % (0.0-0.8); Eosinophils # 0.3 10*3/uL (0.0-0.87); Eosinophils % 3.3 % (0.00-10.9); Hematocrit 23.9 VOL% (42.0-52.0); Hemoglobin 7.9 GM/DL (14.0-18.0); Immature Granulocytes % 0.5 %; Immature Granulocytes Absolute 0.04 #; Lymphocytes # 1.1 10*3/uL (1.4-4.0); Lymphocytes % 14.5 % (21.2-54.2); Mean Corpuscular HGB Conc 33.1 GM/DL (32-36); Mean Corpuscular Volume 93.7 FL (87-102); Mean Platelet Volume 9.8 FL (9.6-12.0); Monocytes % 10.3 % (1.7-12.7); Neutrophils % 71.1 % (38.7-73.9); Platelet Count 140 T/CUMM (130-400); Red Blood Count 2.55 MC/CUMM (3.8-5.5); White Blood Count 7.7 T/CUMM (4-12)
[2020-07-05 06:37] LABS: Osmolality,Calculated 276.7 MOS/KG (273-304)
[2020-07-05] MEDS: carvediloL 25 MG TABLET PO SCH (10:41)
[2020-07-05] MEDS: GABAPENTIN 100 MG CAPSULE PO SCH ×2 (10:41→15:53)
[2020-07-05] MEDS: PANTOPRAZOLE INJ 200 MG in SODIUM CHLORIDE 0.9% 250 ML IV SCH (12:05)
[2020-07-05 16:23] VITALS: BP 144/74
[2020-07-06] MEDS ORDERED: PANTOPRAZOLE 40 MG VIAL IV SCH (09:00)
== END 2020-07-05 18:18 | disposition home or self-care (01) | DRG 393 ==
LOC: N.EDINP 18:55 → N.ED 18:55 → N.EDINP 22:31 → N.TELES 23:55 → SUATTDRO 07-01 10:38
PROVIDERS: ADMIT Internal Medicine; ATTEND Internal Medicine

== ENCOUNTER 2020-12-05 16:11 | Inpatient (IN) ==
[2020-12-05] MEDS ORDERED: ONDANSETRON 4 MG/2 ML VIAL ONE (21:02)
[2020-12-05] MEDS ORDERED: ONDANSETRON 4 MG/2 ML VIAL IV PRN (21:04)
[2020-12-06] MEDS ORDERED: ACETAMINOPHEN 325 MG TABLET PO PRN (01:38)
[2020-12-06] MEDS ORDERED: hydrALAZINE 20 MG/1 ML VIAL IV PRN (01:38)
[2020-12-06] MEDS ORDERED: DOCUSATE SODIUM 100 MG CAPSULE PO PRN (01:38)
[2020-12-06] MEDS ORDERED: ALBUTEROL 2.5 MG/3 ML NEB RESP TX PRN (01:38)
[2020-12-06 04:55] LABS: Basophils % 0.6 % (0.0-0.8); Eosinophils # 0.1 10*3/uL (0.0-0.87); Eosinophils % 1.6 % (0.00-10.9); Hematocrit 34.6 VOL% (42.0-52.0); Hemoglobin 11.2 GM/DL (14.0-18.0); Immature Granulocytes % 0.4 %; Immature Granulocytes Absolute 0.03 #; Lymphocytes # 1.2 10*3/uL (1.4-4.0); Lymphocytes % 18.1 % (21.2-54.2); Mean Corpuscular HGB Conc 32.4 GM/DL (32-36); Mean Corpuscular Volume 101.8 FL (87-102); Mean Platelet Volume 9.7 FL (9.6-12.0); Monocytes % 11.2 % (1.7-12.7); Neutrophils % 68.1 % (38.7-73.9); Platelet Count 145 T/CUMM (130-400); White Blood Count 6.7 T/CUMM (4-12)
[2020-12-06 05:18] LABS: Albumin 3.1 G/DL (3.4-5.0); Bilirubin,Total 2.6 MG/DL (0.2-1.0); Calcium 8.8 MG/DL (8.5-10.1); Osmolality,Calculated 282.8 MOS/KG (273-304); Potassium 5.7 MMOL/L (3.5-5.1); Total Protein 6.9 G/DL (6.4-8.2)
[2020-12-06] MEDS ORDERED: guaiFENesin/CODEINE 5 ML LIQUID PO PRN (05:34)
[2020-12-06] MEDS ORDERED: NITROGLYCERIN SL 0.4 MG TABLET SL PRN (11:49)
[2020-12-06] MEDS: GABAPENTIN 100 MG CAPSULE PO SCH ×2 (14:51→21:46)
[2020-12-06] MEDS ORDERED: ATORVASTATIN 80 MG TABLET PO SCH (21:00)
[2020-12-06] MEDS: TICAGRELOR 90 MG TABLET PO SCH (21:45)
[2020-12-07] MEDS ORDERED: ASPIRIN EC 81 MG TABLET PO SCH (09:00)
[2020-12-07] MEDS ORDERED: PANTOPRAZOLE 40 MG TABLET PO SCH (09:00)
[2020-12-07] MEDS ORDERED: INSULIN GLARGINE 100 UNIT/ML SUBCUT SCH (09:00)
[2020-12-07] MEDS ORDERED: CITALOPRAM 20 MG TABLET PO SCH (09:00)
[2020-12-07] MEDS: TICAGRELOR 90 MG TABLET PO SCH (09:20)
[2020-12-07] MEDS: GABAPENTIN 100 MG CAPSULE PO SCH ×2 (09:20→15:13)
[2020-12-07 15:54] VITALS: BP 121/65
== END 2020-12-07 16:45 | disposition home or self-care (01) | DRG 640 ==
LOC: SUATTDRO 18:55 → N.ICU 18:55 → N.5E 12-06 17:32
PROVIDERS: ADMIT Internal Medicine; ATTEND Internal Medicine

== ENCOUNTER 2021-03-31 19:20 | Inpatient (IN) ==
[2021-03-31 20:12] LABS: Basophils % 0.1 % (0.0-0.8); Eosinophils # 0.1 10*3/uL (0.0-0.87); Eosinophils % 0.7 % (0.00-10.9); Hematocrit 37.3 VOL% (42.0-52.0); Hemoglobin 12.2 GM/DL (14.0-18.0); Immature Granulocytes % 1.3 %; Immature Granulocytes Absolute 0.11 #; Lymphocytes # 0.4 10*3/uL (1.4-4.0); Lymphocytes % 5.1 % (21.2-54.2); Mean Corpuscular HGB Conc 32.7 GM/DL (32-36); Mean Corpuscular Volume 96.4 FL (87-102); Mean Platelet Volume 11.5 FL (9.6-12.0); Monocytes % 1.4 % (1.7-12.7); NRBC # 0.08 10*3/uL; Neutrophils % 91.4 % (38.7-73.9); Platelet Count 135 T/CUMM (130-400); Red Blood Count 3.87 MC/CUMM (3.8-5.5); Red Cell Distribution Width 14.2 % (9.3-17.3); White Blood Count 8.3 T/CUMM (4-12)
[2021-03-31] MEDS ORDERED: hydrALAZINE 20 MG/1 ML VIAL IV STA (20:16)
[2021-03-31 20:21] LABS: INR 1.6; PT Patient Result 17.1 SECS (10.5-12.0)
[2021-03-31 20:38] LABS: Alanine Aminotransferase 38 U/L (16-61); Albumin 2.4 G/DL (3.4-5.0); Alkaline Phosphatase 142 U/L (45-117); Aspartate Amino Transferase 175 U/L (0-37); Blood Urea Nitrogen 72 MG/DL (7-18); Calcium 7.8 MG/DL (8.5-10.1); Carbon Dioxide 30 MMOL/L (21-32); Estimated Glom Filtration Rate 5 ML/MIN; Glucose 129 MG/DL (74-106); Osmolality,Calculated 299.5 MOS/KG (273-304); Sodium 139 MMOL/L (136-145); Total Protein 6.5 G/DL (6.4-8.2)
[2021-03-31 20:40] LABS: Potassium 2.5 MMOL/L (3.5-5.1)
[2021-03-31 21:10] LABS: ABG Base Excess 4.9 MMOL/L (-2.5-2.5); ABG HCO3 26.9 MMOL/L (20-26); ABG Oxygen Saturation 79.4 % (95-100); ABG PCO2 31.4 MM HG (35-48); ABG PH 7.551 (7.35-7.45); ABG PO2 42.9 MM HG (80-95); ABG TCO2 27.9 MMOL/L (23-27)
[2021-03-31] MEDS ORDERED: GLUCAGON 1 MG VIAL IM PRN ×2 (23:38→23:49)
[2021-03-31] MEDS ORDERED: DEXTROSE 50% 25 GM/50 ML VIAL IV PRN ×2 (23:38→23:49)
[2021-03-31] MEDS ORDERED: ALBUTEROL 2.5 MG/3 ML NEB RESP TX PRN (23:38)
[2021-03-31] MEDS ORDERED: POTASSIUM CHLORIDE 20 MEQ TABLET PO ONE (23:48)
[2021-04-01] MEDS: POTASSIUM CHLORIDE RIDER 10 MEQ/100 ML PREMIX IV SCH ×5 (00:28→04:12)
[2021-04-01] MEDS: PANTOPRAZOLE 40 MG VIAL IV SCH ×2 (00:29→23:21)
[2021-04-01] MEDS: HEPARIN 5,000 UNIT/1 ML VIAL SUBCUT SCH ×2 (00:29→05:19)
[2021-04-01] MEDS: methylPREDNISolone SOD SUC 40 MG/1 ML VIAL IV SCH ×5 (00:29→23:22)
[2021-04-01] MEDS ORDERED: ALBUTEROL INHALER 18 GM INH PRN (00:30)
[2021-04-01] MEDS: cefTRIAXone 1,000 MG in SODIUM CHLORIDE 0.9% 100 ML IV SCH ×2 (00:35→23:22)
[2021-04-01] MEDS: AZITHROMYCIN INJ 500 MG in SODIUM CHLORIDE 0.9% 250 ML IV SCH ×2 (00:35→23:22)
[2021-04-01] MEDS ORDERED: PHENYLEPHRINE DRIP 40 MG/250 ML PREMIX IV ONE (01:00)
[2021-04-01] MEDS: ALBUTEROL/IPRATROPIUM 3 ML NEB RESP TX SCH ×2 (01:41→11:31)
[2021-04-01] MEDS: ALBUTEROL INHALER 18 GM INH SCH ×4 (02:09→20:10)
[2021-04-01] MEDS ORDERED: SODIUM BICARBONATE 50 MEQ/50 ML VIAL IV ONE (04:34)
[2021-04-01 06:06] LABS: Basophils % 0.1 % (0.0-0.8); Hematocrit 33.1 VOL% (42.0-52.0); Hemoglobin 10.9 GM/DL (14.0-18.0); Immature Granulocytes % 1.3 %; Lymphocytes # 0.2 10*3/uL (1.4-4.0); Lymphocytes % 2.3 % (21.2-54.2); Mean Corpuscular HGB Conc 32.9 GM/DL (32-36); Mean Corpuscular Volume 95.7 FL (87-102); Mean Platelet Volume 11.4 FL (9.6-12.0); Monocytes % 1.5 % (1.7-12.7); NRBC # 0.06 10*3/uL; Neutrophils % 94.8 % (38.7-73.9); Platelet Count 112 T/CUMM (130-400); Red Blood Count 3.46 MC/CUMM (3.8-5.5); Red Cell Distribution Width 14.2 % (9.3-17.3); White Blood Count 7.9 T/CUMM (4-12)
[2021-04-01 06:27] LABS: INR 1.2; PT Patient Result 12.9 SECS (10.5-12.0)
[2021-04-01 06:36] LABS: Hypochromasia 1+; Lymphocytes 1 % (20-55); Microcytosis 1+; Ovalocytes Slight; Platelet Estimate Decreased; Segmented Neutrophils 99 % (50-85); Total Cells Counted 100
[2021-04-01 06:37] LABS: Calcium 7.2 MG/DL (8.5-10.1); Ferritin 9570.3 ng/mL (26-388); Osmolality,Calculated 302.4 MOS/KG (273-304); Potassium 2.6 MMOL/L (3.5-5.1); Risk Ratio 8.54; VLDL Cholesterol 58.4 MG/DL
[2021-04-01] MEDS: INSULIN LISPRO 100 UNIT/ML SUBCUT SCH ×4 (08:40→20:10)
[2021-04-01] MEDS ORDERED: FAMOTIDINE 20 MG TABLET PO SCH (09:00)
[2021-04-01] MEDS ORDERED: POTASSIUM CHLORIDE 20 MEQ TABLET PO ONE (11:41)
[2021-04-01] MEDS: TICAGRELOR 90 MG TABLET PO SCH ×2 (12:00→20:10)
[2021-04-01] MEDS: ASCORBIC ACID 500 MG TABLET PO SCH ×2 (12:00→20:10)
[2021-04-01] MEDS: ASPIRIN EC 81 MG TABLET PO SCH (12:00)
[2021-04-01] MEDS: ZINC GLUCONATE 50 MG TABLET PO SCH (12:00)
[2021-04-01] MEDS: CHOLECALCIFEROL 1,000 UNIT TABLET PO SCH (12:00)
[2021-04-01] MEDS: INSULIN GLARGINE 100 UNIT/ML SUBCUT SCH (12:01)
[2021-04-01] MEDS: CETIRIZINE 10 MG TABLET PO SCH (12:01)
[2021-04-01] MEDS: carvediloL 12.5 MG TABLET PO SCH ×2 (12:01→20:11)
[2021-04-01] MEDS: CITALOPRAM 20 MG TABLET PO SCH (12:01)
[2021-04-01] MEDS: HEPARIN DRIP 25,000 UNITS/500 ML PREMIX IV SCH (12:02)
[2021-04-01] MEDS ORDERED: DOPamine 800 MG/250 ML PREMIX IV ONE (18:16)
[2021-04-01] MEDS: DOPamine 800 MG/250 ML PREMIX IV PRN (18:36)
[2021-04-01] MEDS: ATORVASTATIN 80 MG TABLET PO SCH (20:10)
[2021-04-02 00:47] LABS: Basophils % 0.1 % (0.0-0.8); Hematocrit 36.2 VOL% (42.0-52.0); Immature Granulocytes % 0.6 %; Immature Granulocytes Absolute 0.07 #; Lymphocytes # 0.5 10*3/uL (1.4-4.0); Lymphocytes % 4.6 % (21.2-54.2); Mean Corpuscular HGB Conc 33.1 GM/DL (32-36); Mean Corpuscular Volume 95.8 FL (87-102); Monocytes % 1.2 % (1.7-12.7); NRBC # 0.13 10*3/uL; Neutrophils % 93.5 % (38.7-73.9); Platelet Count 114 T/CUMM (130-400); Red Blood Count 3.78 MC/CUMM (3.8-5.5); Red Cell Distribution Width 14.6 % (9.3-17.3); White Blood Count 10.8 T/CUMM (4-12)
[2021-04-02] MEDS ORDERED: NOREPINEPHRINE 8 MG in SODIUM CHLORIDE 0.9% 242 ML IV PRN (00:50)
[2021-04-02 01:08] LABS: Band Neutrophils 1 % (0-10); Lymphocytes 1 % (20-55); Nucleated Red Blood Cells 5 (0-5); Segmented Neutrophils 98 % (50-85); Total Cells Counted 100
[2021-04-02 01:09] LABS: Platelet Estimate Normal
[2021-04-02 01:12] LABS: Bilirubin,Total 1.7 MG/DL (0.20-1.00); Calcium 7.9 MG/DL (8.5-10.1); Osmolality,Calculated 288.8 MOS/KG (273-304); Potassium 2.8 MMOL/L (3.5-5.1); Total Protein 6.5 G/DL (6.4-8.2)
[2021-04-02] MEDS: ALBUTEROL INHALER 18 GM INH SCH ×4 (02:25→20:20)
[2021-04-02] MEDS: DOPamine 800 MG/250 ML PREMIX IV PRN ×4 (03:12→21:35)
[2021-04-02] MEDS: methylPREDNISolone SOD SUC 40 MG/1 ML VIAL IV SCH ×4 (05:39→23:35)
[2021-04-02] MEDS ORDERED: POTASSIUM BICARB EFFERVESCENT 20 MEQ TAB.EFF PO ONE (08:30)
[2021-04-02] MEDS: CITALOPRAM 20 MG TABLET PO SCH (09:31)
[2021-04-02] MEDS: CHOLECALCIFEROL 1,000 UNIT TABLET PO SCH (09:31)
[2021-04-02] MEDS: INSULIN GLARGINE 100 UNIT/ML SUBCUT SCH (09:31)
[2021-04-02] MEDS: CETIRIZINE 10 MG TABLET PO SCH (09:32)
[2021-04-02] MEDS: FAMOTIDINE 20 MG TABLET PO SCH (09:32)
[2021-04-02] MEDS: ASCORBIC ACID 500 MG TABLET PO SCH ×2 (09:32→20:51)
[2021-04-02] MEDS: TICAGRELOR 90 MG TABLET PO SCH ×2 (09:32→20:52)
[2021-04-02] MEDS: GENTAMICIN 0.3% OPH OINT 3.5 GM TUBE BOTH EYES SCH ×3 (09:32→20:51)
[2021-04-02] MEDS: ASPIRIN EC 81 MG TABLET PO SCH (09:32)
[2021-04-02] MEDS: ZINC GLUCONATE 50 MG TABLET PO SCH (09:32)
[2021-04-02] MEDS: carvediloL 12.5 MG TABLET PO SCH (09:58)
[2021-04-02] MEDS: HEPARIN DRIP 25,000 UNITS/500 ML PREMIX IV SCH (09:58)
[2021-04-02] MEDS: INSULIN LISPRO 100 UNIT/ML SUBCUT SCH ×4 (10:02→20:51)
[2021-04-02] MEDS ORDERED: NOREPINEPHRINE 16 MG in SODIUM CHLORIDE 0.9% 234 ML IV PRN (10:36)
[2021-04-02 13:14] LABS: ABG Base Excess -3.5 MMOL/L (-2.5-2.5); ABG HCO3 19.9 MMOL/L (20-26); ABG PCO2 31.2 MM HG (35-48); ABG PH 7.422 (7.35-7.45); ABG PO2 61.6 MM HG (80-95); ABG TCO2 20.8 MMOL/L (23-27)
[2021-04-02] MEDS: ATORVASTATIN 80 MG TABLET PO SCH (20:51)
[2021-04-02] MEDS: PANTOPRAZOLE 40 MG VIAL IV SCH (23:38)
[2021-04-02] MEDS: cefTRIAXone 1,000 MG in SODIUM CHLORIDE 0.9% 100 ML IV SCH (23:46)
[2021-04-02] MEDS: AZITHROMYCIN INJ 500 MG in SODIUM CHLORIDE 0.9% 250 ML IV SCH (23:49)
[2021-04-03] MEDS: ALBUTEROL INHALER 18 GM INH SCH ×4 (00:52→20:13)
[2021-04-03] MEDS: methylPREDNISolone SOD SUC 40 MG/1 ML VIAL IV SCH ×4 (05:43→21:00)
[2021-04-03 06:00] LABS: Basophils % 0.1 % (0.0-0.8); Hematocrit 36.1 VOL% (42.0-52.0); Immature Granulocytes Absolute 0.19 #; Lymphocytes # 0.6 10*3/uL (1.4-4.0); Mean Corpuscular HGB Conc 33.2 GM/DL (32-36); Mean Platelet Volume 11.4 FL (9.6-12.0); Monocytes % 1.7 % (1.7-12.7); NRBC # 0.17 10*3/uL; Neutrophils % 94.2 % (38.7-73.9); Platelet Count 169 T/CUMM (130-400); Red Blood Count 3.76 MC/CUMM (3.8-5.5); Red Cell Distribution Width 15.2 % (9.3-17.3); White Blood Count 18.4 T/CUMM (4-12)
[2021-04-03 06:41] LABS: Albumin 1.7 G/DL (3.4-5.0); Bilirubin,Direct 0.93 MG/DL (0.0-0.20); Bilirubin,Indirect 0.9 MG/DL (0.0-1.0); Bilirubin,Total 1.8 MG/DL (0.20-1.00); Calcium 7.3 MG/DL (8.5-10.1); Ferritin 9764.5 ng/mL (26-388); Potassium 3.4 MMOL/L (3.5-5.1); Total Protein 5.8 G/DL (6.4-8.2)
[2021-04-03 08:33] LABS: Anisocytosis 2+; Band Neutrophils 5 % (0-10); Lymphocytes 4 % (20-55); Macrocytosis 1+; Ovalocytes Few; Platelet Estimate Normal; Segmented Neutrophils 90 % (50-85); Total Cells Counted 100
[2021-04-03 08:34] LABS: Burr Cells 1+; Spherocytes Few
[2021-04-03] MEDS: GENTAMICIN 0.3% OPH OINT 3.5 GM TUBE BOTH EYES SCH ×3 (09:16→20:37)
[2021-04-03] MEDS: INSULIN GLARGINE 100 UNIT/ML SUBCUT SCH (09:17)
[2021-04-03] MEDS: ASPIRIN EC 81 MG TABLET PO SCH (09:17)
[2021-04-03] MEDS: ZINC GLUCONATE 50 MG TABLET PO SCH (09:17)
[2021-04-03] MEDS: CHOLECALCIFEROL 1,000 UNIT TABLET PO SCH (09:17)
[2021-04-03] MEDS: CETIRIZINE 10 MG TABLET PO SCH (09:17)
[2021-04-03] MEDS: ASCORBIC ACID 500 MG TABLET PO SCH ×2 (09:17→20:12)
[2021-04-03] MEDS: FAMOTIDINE 20 MG TABLET PO SCH (09:18)
[2021-04-03] MEDS: CITALOPRAM 20 MG TABLET PO SCH (09:18)
[2021-04-03] MEDS: TICAGRELOR 90 MG TABLET PO SCH ×2 (09:18→20:37)
[2021-04-03] MEDS: INSULIN LISPRO 100 UNIT/ML SUBCUT SCH ×4 (09:41→20:38)
[2021-04-03] MEDS: DOPamine 800 MG/250 ML PREMIX IV PRN (10:45)
[2021-04-03] MEDS: HEPARIN DRIP 25,000 UNITS/500 ML PREMIX IV SCH (10:45)
[2021-04-03 16:02] LABS: Hematocrit 32.9 VOL% (42.0-52.0); Hemoglobin 10.8 GM/DL (14.0-18.0)
[2021-04-03] MEDS: PANTOPRAZOLE INJ 200 MG in SODIUM CHLORIDE 0.9% 250 ML IV SCH (16:56)
[2021-04-03] MEDS: PANTOPRAZOLE INJ 80 MG in SODIUM CHLORIDE 0.9% 100 ML IV ONE (16:57)
[2021-04-03] MEDS: ATORVASTATIN 80 MG TABLET PO SCH (20:11)
[2021-04-03] MEDS ORDERED: ONDANSETRON 4 MG/2 ML VIAL ONE (20:54)
[2021-04-03] MEDS ORDERED: PROMETHAZINE 25 MG/1 ML VIAL IM PRN (20:58)
[2021-04-03] MEDS: ONDANSETRON 4 MG/2 ML VIAL IV PRN (20:59)
[2021-04-03 21:16] LABS: Hematocrit 36.2 VOL% (42.0-52.0)
[2021-04-04] MEDS: cefTRIAXone 1,000 MG in SODIUM CHLORIDE 0.9% 100 ML IV SCH (00:30)
[2021-04-04] MEDS: AZITHROMYCIN INJ 500 MG in SODIUM CHLORIDE 0.9% 250 ML IV SCH (00:30)
[2021-04-04] MEDS: ALBUTEROL INHALER 18 GM INH SCH ×4 (00:52→20:58)
[2021-04-04] MEDS: DOPamine 800 MG/250 ML PREMIX IV PRN ×2 (01:49→11:56)
[2021-04-04] MEDS: PANTOPRAZOLE INJ 80 MG in SODIUM CHLORIDE 0.9% 100 ML IV ONE (03:43)
[2021-04-04] MEDS: methylPREDNISolone SOD SUC 40 MG/1 ML VIAL IV SCH ×3 (06:25→21:00)
[2021-04-04 06:41] LABS: Basophils % 0.1 % (0.0-0.8); Hematocrit 33.6 VOL% (42.0-52.0); Hemoglobin 11.8 GM/DL (14.0-18.0); Immature Granulocytes % 0.7 %; Lymphocytes # 0.2 10*3/uL (1.4-4.0); Lymphocytes % 1.4 % (21.2-54.2); Mean Corpuscular HGB Conc 35.1 GM/DL (32-36); Mean Corpuscular Volume 98.2 FL (87-102); Mean Platelet Volume 12.2 FL (9.6-12.0); NRBC # 0.13 10*3/uL; Neutrophils % 95.8 % (38.7-73.9); Platelet Count 140 T/CUMM (130-400); Red Blood Count 3.42 MC/CUMM (3.8-5.5); Red Cell Distribution Width 15.6 % (9.3-17.3); White Blood Count 15.1 T/CUMM (4-12)
[2021-04-04 07:08] LABS: Hypochromasia 1+; Lymphocytes 1 % (20-55); Nucleated Red Blood Cells 3 (0-5); Polychromasia Slight; Segmented Neutrophils 98 % (50-85); Total Cells Counted 100
[2021-04-04 07:09] LABS: Microcytosis 1+; Ovalocytes Slight; Platelet Estimate Adequate
[2021-04-04 07:22] LABS: Albumin 1.6 G/DL (3.4-5.0); Bilirubin,Direct 0.77 MG/DL (0.0-0.20); Bilirubin,Indirect 1.4 MG/DL (0.0-1.0); Bilirubin,Total 2.2 MG/DL (0.20-1.00); Calcium 6.5 MG/DL (8.5-10.1); Osmolality,Calculated 302.1 MOS/KG (273-304)
[2021-04-04] MEDS: INSULIN GLARGINE 100 UNIT/ML SUBCUT SCH (08:44)
[2021-04-04] MEDS: INSULIN LISPRO 100 UNIT/ML SUBCUT SCH ×4 (08:44→21:15)
[2021-04-04] MEDS: TICAGRELOR 90 MG TABLET PO SCH (08:45)
[2021-04-04] MEDS: ZINC GLUCONATE 50 MG TABLET PO SCH (08:45)
[2021-04-04] MEDS: CHOLECALCIFEROL 1,000 UNIT TABLET PO SCH (08:45)
[2021-04-04] MEDS: CETIRIZINE 10 MG TABLET PO SCH (08:45)
[2021-04-04] MEDS: CITALOPRAM 20 MG TABLET PO SCH (08:45)
[2021-04-04] MEDS: GENTAMICIN 0.3% OPH OINT 3.5 GM TUBE BOTH EYES SCH ×3 (08:45→21:00)
[2021-04-04] MEDS: ASPIRIN EC 81 MG TABLET PO SCH (08:45)
[2021-04-04] MEDS: ASCORBIC ACID 500 MG TABLET PO SCH ×2 (08:45→20:59)
[2021-04-04] MEDS: PANTOPRAZOLE INJ 200 MG in SODIUM CHLORIDE 0.9% 250 ML IV SCH (16:05)
[2021-04-04] MEDS: ATORVASTATIN 80 MG TABLET PO SCH (20:59)
[2021-04-04] MEDS ORDERED: PANTOPRAZOLE 40 MG VIAL IV SCH (21:00)
[2021-04-05] MEDS: cefTRIAXone 1,000 MG in SODIUM CHLORIDE 0.9% 100 ML IV SCH ×2 (00:14→23:57)
[2021-04-05] MEDS: ALBUTEROL INHALER 18 GM INH SCH ×4 (00:40→20:35)
[2021-04-05] MEDS: AZITHROMYCIN INJ 500 MG in SODIUM CHLORIDE 0.9% 250 ML IV SCH (00:44)
[2021-04-05 04:01] LABS: ABG Base Excess -1.5 MMOL/L (-2.5-2.5); ABG Oxygen Saturation 87.1 % (95-100); ABG PCO2 32.4 MM HG (35-48); ABG PO2 55.6 MM HG (80-95)
[2021-04-05] MEDS: ONDANSETRON 4 MG/2 ML VIAL IV PRN ×3 (04:22→20:51)
[2021-04-05] MEDS: methylPREDNISolone SOD SUC 40 MG/1 ML VIAL IV SCH ×3 (06:39→20:50)
[2021-04-05 06:56] LABS: Albumin 1.7 G/DL (3.4-5.0); Bilirubin,Total 1.5 MG/DL (0.20-1.00); Calcium 6.6 MG/DL (8.5-10.1); Osmolality,Calculated 289.7 MOS/KG (273-304); Potassium 3.3 MMOL/L (3.5-5.1); Total Protein 5.2 G/DL (6.4-8.2)
[2021-04-05] MEDS: CHOLECALCIFEROL 1,000 UNIT TABLET PO SCH (08:23)
[2021-04-05] MEDS: ZINC GLUCONATE 50 MG TABLET PO SCH (08:23)
[2021-04-05] MEDS: CETIRIZINE 10 MG TABLET PO SCH (08:23)
[2021-04-05] MEDS: CITALOPRAM 20 MG TABLET PO SCH (08:23)
[2021-04-05] MEDS: INSULIN GLARGINE 100 UNIT/ML SUBCUT SCH (08:24)
[2021-04-05] MEDS: GENTAMICIN 0.3% OPH OINT 3.5 GM TUBE BOTH EYES SCH ×3 (08:24→21:24)
[2021-04-05] MEDS: ASCORBIC ACID 500 MG TABLET PO SCH ×2 (08:24→20:50)
[2021-04-05] MEDS: DOPamine 800 MG/250 ML PREMIX IV PRN (08:37)
[2021-04-05] MEDS: INSULIN LISPRO 100 UNIT/ML SUBCUT SCH ×4 (09:27→21:23)
[2021-04-05 09:37] LABS: Basophils % 0.1 % (0.0-0.8); Hemoglobin 9.3 GM/DL (14.0-18.0); Immature Granulocytes % 1.1 %; Immature Granulocytes Absolute 0.12 #; Lymphocytes # 0.1 10*3/uL (1.4-4.0); Lymphocytes % 0.8 % (21.2-54.2); Mean Corpuscular HGB Conc 34.4 GM/DL (32-36); Mean Corpuscular Volume 98.5 FL (87-102); Mean Platelet Volume 11.7 FL (9.6-12.0); NRBC # 0.05 10*3/uL; Platelet Count 123 T/CUMM (130-400); Red Blood Count 2.74 MC/CUMM (3.8-5.5); Red Cell Distribution Width 15.9 % (9.3-17.3); White Blood Count 11.4 T/CUMM (4-12)
[2021-04-05 09:53] LABS: Band Neutrophils 2 % (0-10); Lymphocytes 2 % (20-55); Segmented Neutrophils 93 % (50-85); Total Cells Counted 100
[2021-04-05 09:54] LABS: Hypochromasia 1+
[2021-04-05 09:55] LABS: Microcytosis 1+; Ovalocytes Slight; Platelet Estimate Adequate
[2021-04-05 18:15] LABS: Hematocrit 24.6 VOL% (42.0-52.0); Immature Granulocytes % 1.1 %; Immature Granulocytes Absolute 0.11 #; Lymphocytes # 0.1 10*3/uL (1.4-4.0); Lymphocytes % 1.3 % (21.2-54.2); Mean Corpuscular HGB Conc 32.5 GM/DL (32-36); Mean Corpuscular Volume 98.4 FL (87-102); Mean Platelet Volume 11.2 FL (9.6-12.0); Monocytes % 2.8 % (1.7-12.7); NRBC # 0.02 10*3/uL; Neutrophils % 94.8 % (38.7-73.9); Platelet Count 98 T/CUMM (130-400); Red Cell Distribution Width 16.2 % (9.3-17.3)
[2021-04-05 18:48] LABS: Lymphocytes 2 % (20-55); Metamyelocytes 1 %; Nucleated Red Blood Cells 1 (0-5); Segmented Neutrophils 95 % (50-85); Total Cells Counted 100
[2021-04-05 18:49] LABS: Platelet Estimate Decreased; Spherocytes 1+
[2021-04-05] MEDS: ATORVASTATIN 80 MG TABLET PO SCH (20:49)
[2021-04-06] MEDS: ALBUTEROL INHALER 18 GM INH SCH ×2 (01:22→06:25)
[2021-04-06 03:34] LABS: ABG Base Excess -4.2 MMOL/L (-2.5-2.5); ABG HCO3 20.8 MMOL/L (20-26); ABG Oxygen Saturation 87.8 % (95-100); ABG PCO2 32.8 MM HG (35-48); ABG PH 7.394 (7.35-7.45); ABG PO2 61.7 MM HG (80-95); ABG TCO2 18.7 MMOL/L (23-27)
[2021-04-06] MEDS: methylPREDNISolone SOD SUC 40 MG/1 ML VIAL IV SCH ×2 (04:51→18:41)
[2021-04-06] MEDS: INSULIN LISPRO 100 UNIT/ML SUBCUT SCH ×4 (08:02→21:17)
[2021-04-06 09:55] LABS: Hematocrit 28.8 VOL% (42.0-52.0); Hemoglobin 9.2 GM/DL (14.0-18.0)
[2021-04-06] MEDS: ZINC GLUCONATE 50 MG TABLET PO SCH (11:04)
[2021-04-06] MEDS: ALPRAZolam 0.5 MG TABLET PO PRN ×2 (11:04→19:35)
[2021-04-06] MEDS: CETIRIZINE 10 MG TABLET PO SCH (11:05)
[2021-04-06] MEDS: CITALOPRAM 20 MG TABLET PO SCH (11:05)
[2021-04-06] MEDS: ASCORBIC ACID 500 MG TABLET PO SCH ×2 (11:05→20:21)
[2021-04-06] MEDS: CHOLECALCIFEROL 1,000 UNIT TABLET PO SCH (11:05)
[2021-04-06] MEDS: GENTAMICIN 0.3% OPH OINT 3.5 GM TUBE BOTH EYES SCH ×3 (11:25→21:15)
[2021-04-06] MEDS: INSULIN GLARGINE 100 UNIT/ML SUBCUT SCH (13:27)
[2021-04-06] MEDS: ATORVASTATIN 80 MG TABLET PO SCH (20:21)
[2021-04-06] MEDS: cefTRIAXone 1,000 MG in SODIUM CHLORIDE 0.9% 100 ML IV SCH (21:15)
[2021-04-06] MEDS: PANTOPRAZOLE 40 MG VIAL IV SCH (21:16)
[2021-04-07] MEDS: methylPREDNISolone SOD SUC 40 MG/1 ML VIAL IV SCH ×3 (02:20→18:57)
[2021-04-07] MEDS: ALPRAZolam 0.5 MG TABLET PO PRN (03:40)
[2021-04-07 05:14] LABS: ABG Base Excess -0.7 MMOL/L (-2.5-2.5); ABG HCO3 23.9 MMOL/L (20-26); ABG Oxygen Saturation 98.8 % (95-100); ABG PCO2 31.4 MM HG (35-48); ABG PH 7.463 (7.35-7.45); ABG TCO2 20.7 MMOL/L (23-27)
[2021-04-07 05:49] LABS: Hematocrit 26.5 VOL% (42.0-52.0); Hemoglobin 8.9 GM/DL (14.0-18.0); Immature Granulocytes % 0.6 %; Immature Granulocytes Absolute 0.06 #; Lymphocytes # 0.2 10*3/uL (1.4-4.0); Lymphocytes % 1.6 % (21.2-54.2); Mean Corpuscular HGB Conc 33.6 GM/DL (32-36); Mean Platelet Volume 12.1 FL (9.6-12.0); Monocytes % 3.5 % (1.7-12.7); NRBC # 0.02 10*3/uL; Neutrophils % 94.3 % (38.7-73.9); Platelet Count 111 T/CUMM (130-400); Red Blood Count 2.65 MC/CUMM (3.8-5.5); Red Cell Distribution Width 16.5 % (9.3-17.3)
[2021-04-07 06:11] LABS: Lymphocytes 1 % (20-55); Segmented Neutrophils 96 % (50-85); Total Cells Counted 100
[2021-04-07 06:12] LABS: Acanthocytes Few; Hypochromasia 1+; Microcytosis 1+; Ovalocytes Slight; Target Cells Slight
[2021-04-07 06:13] LABS: Platelet Estimate Decreased
[2021-04-07 06:17] LABS: Calcium 6.8 MG/DL (8.5-10.1); Osmolality,Calculated 289.5 MOS/KG (273-304); Potassium 3.4 MMOL/L (3.5-5.1)
[2021-04-07] MEDS: INSULIN LISPRO 100 UNIT/ML SUBCUT SCH ×4 (08:32→22:10)
[2021-04-07] MEDS: CITALOPRAM 20 MG TABLET PO SCH (08:33)
[2021-04-07] MEDS: GENTAMICIN 0.3% OPH OINT 3.5 GM TUBE BOTH EYES SCH ×3 (08:33→22:01)
[2021-04-07] MEDS: CETIRIZINE 10 MG TABLET PO SCH (08:34)
[2021-04-07] MEDS: CHOLECALCIFEROL 1,000 UNIT TABLET PO SCH (08:34)
[2021-04-07] MEDS: ZINC GLUCONATE 50 MG TABLET PO SCH (08:34)
[2021-04-07] MEDS: PANTOPRAZOLE 40 MG VIAL IV SCH ×2 (08:34→20:49)
[2021-04-07] MEDS: ASCORBIC ACID 500 MG TABLET PO SCH ×2 (08:34→21:10)
[2021-04-07] MEDS: INSULIN GLARGINE 100 UNIT/ML SUBCUT SCH (09:14)
[2021-04-07] MEDS: ALBUTEROL INHALER 18 GM INH SCH ×2 (14:15→14:16)
[2021-04-07] MEDS: ATORVASTATIN 80 MG TABLET PO SCH (20:49)
[2021-04-07] MEDS: cefTRIAXone 1,000 MG in SODIUM CHLORIDE 0.9% 100 ML IV SCH (20:50)
[2021-04-08] MEDS: methylPREDNISolone SOD SUC 40 MG/1 ML VIAL IV SCH ×3 (01:17→20:03)
[2021-04-08] MEDS: ALPRAZolam 0.5 MG TABLET PO PRN (03:00)
[2021-04-08 04:18] LABS: ABG Base Excess -2.5 MMOL/L (-2.5-2.5); ABG HCO3 20.3 MMOL/L (20-26); ABG PCO2 29.9 MM HG (35-48); ABG PH 7.449 (7.35-7.45); ABG PO2 88.4 MM HG (80-95); ABG TCO2 21.2 MMOL/L (23-27)
[2021-04-08 04:19] LABS: ABG Oxygen Saturation 97.2 % (95-100)
[2021-04-08 07:00] LABS: Basophils % 0.1 % (0.0-0.8); Hematocrit 27.8 VOL% (42.0-52.0); Immature Granulocytes % 1.1 %; Immature Granulocytes Absolute 0.13 #; Lymphocytes # 0.2 10*3/uL (1.4-4.0); Lymphocytes % 1.7 % (21.2-54.2); Mean Corpuscular HGB Conc 32.4 GM/DL (32-36); Mean Corpuscular Volume 99.6 FL (87-102); Mean Platelet Volume 12.2 FL (9.6-12.0); Monocytes % 3.9 % (1.7-12.7); NRBC # 0.02 10*3/uL; Neutrophils % 93.2 % (38.7-73.9); Platelet Count 121 T/CUMM (130-400); Red Blood Count 2.79 MC/CUMM (3.8-5.5); Red Cell Distribution Width 16.6 % (9.3-17.3); White Blood Count 12.1 T/CUMM (4-12)
[2021-04-08] MEDS: INSULIN LISPRO 100 UNIT/ML SUBCUT SCH ×4 (07:30→20:02)
[2021-04-08 07:31] LABS: Anisocytosis 2+; Band Neutrophils 2 % (0-10); Burr Cells Few; Lymphocytes 2 % (20-55); Macrocytosis 1+; Nucleated Red Blood Cells 3 (0-5); Platelet Estimate Adequate; Segmented Neutrophils 91 % (50-85); Total Cells Counted 100
[2021-04-08 07:32] LABS: Misc Morphology 3S; Poikilocytosis Slight
[2021-04-08 07:55] LABS: Calcium 6.7 MG/DL (8.5-10.1); Osmolality,Calculated 294.4 MOS/KG (273-304); Potassium 3.7 MMOL/L (3.5-5.1)
[2021-04-08] MEDS: INSULIN GLARGINE 100 UNIT/ML SUBCUT SCH (08:23)
[2021-04-08] MEDS: ASCORBIC ACID 500 MG TABLET PO SCH ×2 (08:23→22:01)
[2021-04-08] MEDS: CITALOPRAM 20 MG TABLET PO SCH (08:23)
[2021-04-08] MEDS: PANTOPRAZOLE 40 MG VIAL IV SCH ×2 (08:23→22:01)
[2021-04-08] MEDS: GENTAMICIN 0.3% OPH OINT 3.5 GM TUBE BOTH EYES SCH ×3 (08:23→23:31)
[2021-04-08] MEDS: CHOLECALCIFEROL 1,000 UNIT TABLET PO SCH (08:24)
[2021-04-08] MEDS: CETIRIZINE 10 MG TABLET PO SCH (08:24)
[2021-04-08] MEDS: ZINC GLUCONATE 50 MG TABLET PO SCH (08:24)
[2021-04-08 10:19] LABS: Albumin 1.8 G/DL (3.4-5.0); Bilirubin,Total 1.1 MG/DL (0.20-1.00); Calcium 6.6 MG/DL (8.5-10.1); Osmolality,Calculated 298.3 MOS/KG (273-304); Potassium 3.5 MMOL/L (3.5-5.1); Total Protein 5.5 G/DL (6.4-8.2)
[2021-04-08] MEDS ORDERED: HEPARIN 10,000 UNIT/10 ML VIAL IV ONE (18:30)
[2021-04-08] MEDS: ATORVASTATIN 80 MG TABLET PO SCH (22:01)
[2021-04-09] MEDS: methylPREDNISolone SOD SUC 40 MG/1 ML VIAL IV SCH ×3 (01:09→21:12)
[2021-04-09] MEDS: ALPRAZolam 0.5 MG TABLET PO PRN (05:41)
[2021-04-09 06:44] LABS: Calcium 7.4 MG/DL (8.5-10.1); Osmolality,Calculated 284.5 MOS/KG (273-304); Potassium 3.2 MMOL/L (3.5-5.1)
[2021-04-09 06:48] LABS: Albumin 1.9 G/DL (3.4-5.0); Bilirubin,Total 1.3 MG/DL (0.20-1.00); Calcium 7.2 MG/DL (8.5-10.1); Osmolality,Calculated 287.3 MOS/KG (273-304); Potassium 3.3 MMOL/L (3.5-5.1)
[2021-04-09 06:55] LABS: Basophils % 0.1 % (0.0-0.8); Hematocrit 28.5 VOL% (42.0-52.0); Hemoglobin 9.6 GM/DL (14.0-18.0); Immature Granulocytes % 0.9 %; Immature Granulocytes Absolute 0.12 #; Lymphocytes # 0.2 10*3/uL (1.4-4.0); Lymphocytes % 1.2 % (21.2-54.2); Mean Corpuscular HGB Conc 33.7 GM/DL (32-36); Mean Corpuscular Volume 99.7 FL (87-102); Monocytes % 4.3 % (1.7-12.7); NRBC # 0.04 10*3/uL; Neutrophils % 93.5 % (38.7-73.9); Platelet Count 139 T/CUMM (130-400); Red Blood Count 2.86 MC/CUMM (3.8-5.5); Red Cell Distribution Width 16.4 % (9.3-17.3)
[2021-04-09] MEDS ORDERED: POTASSIUM CHLORIDE 20 MEQ TABLET PO STA (07:11)
[2021-04-09 07:34] LABS: Hypochromasia 1+; Lymphocytes 1 % (20-55); Microcytosis 1+; Nucleated Red Blood Cells 1 (0-5); Segmented Neutrophils 97 % (50-85); Total Cells Counted 100
[2021-04-09] MEDS: INSULIN LISPRO 100 UNIT/ML SUBCUT SCH ×4 (08:13→22:05)
[2021-04-09] MEDS: PANTOPRAZOLE 40 MG VIAL IV SCH ×2 (08:29→21:12)
[2021-04-09] MEDS: INSULIN GLARGINE 100 UNIT/ML SUBCUT SCH (08:30)
[2021-04-09] MEDS: ASCORBIC ACID 500 MG TABLET PO SCH ×2 (08:31→21:12)
[2021-04-09] MEDS: CETIRIZINE 10 MG TABLET PO SCH (08:31)
[2021-04-09] MEDS: CHOLECALCIFEROL 1,000 UNIT TABLET PO SCH (08:31)
[2021-04-09] MEDS: ZINC GLUCONATE 50 MG TABLET PO SCH (08:31)
[2021-04-09] MEDS: CITALOPRAM 20 MG TABLET PO SCH (08:31)
[2021-04-09 10:41] LABS: Hemoglobin 9.7 GM/DL (14.0-18.0)
[2021-04-09] MEDS: GENTAMICIN 0.3% OPH OINT 3.5 GM TUBE BOTH EYES SCH ×2 (12:52→16:37)
[2021-04-09] MEDS: cefTRIAXone 1,000 MG in SODIUM CHLORIDE 0.9% 100 ML IV SCH (17:14)
[2021-04-09] MEDS: ATORVASTATIN 80 MG TABLET PO SCH (21:12)
[2021-04-10] MEDS: ALPRAZolam 0.5 MG TABLET PO PRN ×2 (00:01→21:28)
[2021-04-10 04:46] LABS: Hematocrit 26.1 VOL% (42.0-52.0); Hemoglobin 8.2 GM/DL (14.0-18.0); Immature Granulocytes Absolute 0.13 #; Lymphocytes # 0.2 10*3/uL (1.4-4.0); Lymphocytes % 1.4 % (21.2-54.2); Mean Corpuscular HGB Conc 31.4 GM/DL (32-36); Mean Platelet Volume 12.3 FL (9.6-12.0); Monocytes % 4.2 % (1.7-12.7); NRBC # 0.03 10*3/uL; Neutrophils % 93.4 % (38.7-73.9); Platelet Count 117 T/CUMM (130-400); Red Blood Count 2.56 MC/CUMM (3.8-5.5); Red Cell Distribution Width 17.1 % (9.3-17.3); White Blood Count 12.5 T/CUMM (4-12)
[2021-04-10 05:08] LABS: Osmolality,Calculated 299.8 MOS/KG (273-304); Potassium 4.1 MMOL/L (3.5-5.1)
[2021-04-10 05:10] LABS: Albumin 1.8 G/DL (3.4-5.0); Bilirubin,Total 1.2 MG/DL (0.20-1.00); Calcium 7.4 MG/DL (8.5-10.1); Osmolality,Calculated 297.1 MOS/KG (273-304); Total Protein 5.5 G/DL (6.4-8.2)
[2021-04-10 05:12] LABS: Hypochromasia 1+; Lymphocytes 1 % (20-55); Microcytosis 1+; Ovalocytes Slight; Platelet Estimate Decreased; Segmented Neutrophils 97 % (50-85); Total Cells Counted 100
[2021-04-10] MEDS: INSULIN LISPRO 100 UNIT/ML SUBCUT SCH ×4 (07:00→22:10)
[2021-04-10] MEDS: INSULIN GLARGINE 100 UNIT/ML SUBCUT SCH (09:00)
[2021-04-10] MEDS: GENTAMICIN 0.3% OPH OINT 3.5 GM TUBE BOTH EYES SCH ×2 (09:00→19:08)
[2021-04-10] MEDS: PANTOPRAZOLE 40 MG VIAL IV SCH ×2 (09:00→21:27)
[2021-04-10] MEDS: methylPREDNISolone SOD SUC 40 MG/1 ML VIAL IV SCH ×2 (09:00→21:27)
[2021-04-10] MEDS: CITALOPRAM 20 MG TABLET PO SCH (09:45)
[2021-04-10] MEDS: ASCORBIC ACID 500 MG TABLET PO SCH ×2 (09:46→21:28)
[2021-04-10] MEDS: CETIRIZINE 10 MG TABLET PO SCH (09:46)
[2021-04-10] MEDS: CHOLECALCIFEROL 1,000 UNIT TABLET PO SCH (09:46)
[2021-04-10] MEDS: ZINC GLUCONATE 50 MG TABLET PO SCH (09:46)
[2021-04-10] MEDS: cefTRIAXone 1,000 MG in SODIUM CHLORIDE 0.9% 100 ML IV SCH (13:15)
[2021-04-10 14:14] LABS: Basophils % 0.1 % (0.0-0.8); Hematocrit 27.3 VOL% (42.0-52.0); Hemoglobin 8.8 GM/DL (14.0-18.0); Immature Granulocytes % 0.9 %; Immature Granulocytes Absolute 0.12 #; Lymphocytes # 0.3 10*3/uL (1.4-4.0); Lymphocytes % 1.9 % (21.2-54.2); Mean Corpuscular HGB Conc 32.2 GM/DL (32-36); Mean Corpuscular Volume 100.4 FL (87-102); Mean Platelet Volume 11.8 FL (9.6-12.0); NRBC # 0.03 10*3/uL; Neutrophils % 93.1 % (38.7-73.9); Platelet Count 120 T/CUMM (130-400); Red Blood Count 2.72 MC/CUMM (3.8-5.5); Red Cell Distribution Width 17.2 % (9.3-17.3); White Blood Count 13.1 T/CUMM (4-12)
[2021-04-10 14:44] LABS: Lymphocytes 4 % (20-55); Segmented Neutrophils 94 % (50-85); Total Cells Counted 100
[2021-04-10 14:45] LABS: Hypochromasia 1+
[2021-04-10 14:47] LABS: Burr Cells Few; Elliptocytes Few; Platelet Estimate Adequate; Schistocytes Few
[2021-04-10] MEDS: ATORVASTATIN 80 MG TABLET PO SCH (21:28)
[2021-04-10 22:57] LABS: Basophils % 0.1 % (0.0-0.8); Hematocrit 23.7 VOL% (42.0-52.0); Hemoglobin 7.4 GM/DL (14.0-18.0); Immature Granulocytes % 1.1 %; Immature Granulocytes Absolute 0.15 #; Lymphocytes # 0.5 10*3/uL (1.4-4.0); Lymphocytes % 3.8 % (21.2-54.2); Mean Corpuscular HGB Conc 31.2 GM/DL (32-36); Mean Corpuscular Volume 102.6 FL (87-102); Mean Platelet Volume 12.3 FL (9.6-12.0); Monocytes % 6.1 % (1.7-12.7); NRBC # 0.03 10*3/uL; Neutrophils % 88.9 % (38.7-73.9); Platelet Count 109 T/CUMM (130-400); Red Blood Count 2.31 MC/CUMM (3.8-5.5); Red Cell Distribution Width 17.2 % (9.3-17.3); White Blood Count 13.4 T/CUMM (4-12)
[2021-04-11 01:28] LABS: Lymphocytes 6 % (20-55); Segmented Neutrophils 91 % (50-85); Total Cells Counted 100
[2021-04-11 01:31] LABS: Anisocytosis 1+; Hypochromasia 1+; Microcytosis 1+; Platelet Estimate Adequate
[2021-04-11] MEDS: GENTAMICIN 0.3% OPH OINT 3.5 GM TUBE BOTH EYES SCH ×3 (06:21→15:46)
[2021-04-11 07:16] LABS: Osmolality,Calculated 308.7 MOS/KG (273-304); Potassium 4.2 MMOL/L (3.5-5.1)
[2021-04-11 07:18] LABS: Albumin 1.8 G/DL (3.4-5.0); Calcium 7.1 MG/DL (8.5-10.1); Osmolality,Calculated 308.7 MOS/KG (273-304); Potassium 4.2 MMOL/L (3.5-5.1); Total Protein 5.5 G/DL (6.4-8.2)
[2021-04-11 08:39] LABS: Basophils % 0.1 % (0.0-0.8); Hemoglobin 6.8 GM/DL (14.0-18.0); Immature Granulocytes % 1.1 %; Immature Granulocytes Absolute 0.13 #; Lymphocytes # 0.2 10*3/uL (1.4-4.0); Lymphocytes % 1.9 % (21.2-54.2); Mean Corpuscular HGB Conc 32.4 GM/DL (32-36); Mean Platelet Volume 11.7 FL (9.6-12.0); Monocytes % 4.3 % (1.7-12.7); NRBC # 0.03 10*3/uL; Neutrophils % 92.6 % (38.7-73.9); Platelet Count 109 T/CUMM (130-400); Red Cell Distribution Width 17.3 % (9.3-17.3); White Blood Count 11.6 T/CUMM (4-12)
[2021-04-11 08:59] LABS: Hypochromasia 1+; Lymphocytes 1 % (20-55); Segmented Neutrophils 97 % (50-85); Total Cells Counted 100
[2021-04-11 09:00] LABS: Microcytosis 1+; Ovalocytes Slight
[2021-04-11 09:01] LABS: Platelet Estimate Decreased
[2021-04-11] MEDS: INSULIN LISPRO 100 UNIT/ML SUBCUT SCH ×4 (09:22→21:40)
[2021-04-11] MEDS: CHOLECALCIFEROL 1,000 UNIT TABLET PO SCH (09:23)
[2021-04-11] MEDS: INSULIN GLARGINE 100 UNIT/ML SUBCUT SCH (09:23)
[2021-04-11] MEDS: CITALOPRAM 20 MG TABLET PO SCH (09:23)
[2021-04-11] MEDS: CETIRIZINE 10 MG TABLET PO SCH (09:23)
[2021-04-11] MEDS: PANTOPRAZOLE 40 MG VIAL IV SCH ×2 (09:23→21:42)
[2021-04-11] MEDS: ZINC GLUCONATE 50 MG TABLET PO SCH (09:23)
[2021-04-11] MEDS: methylPREDNISolone SOD SUC 40 MG/1 ML VIAL IV SCH ×2 (09:23→21:41)
[2021-04-11] MEDS: ASCORBIC ACID 500 MG TABLET PO SCH ×2 (09:23→21:42)
[2021-04-11] MEDS ORDERED: SODIUM CHLORIDE 0.9% 1,000 ML IV PRN (10:07)
[2021-04-11] MEDS: ATORVASTATIN 80 MG TABLET PO SCH (21:42)
[2021-04-11] MEDS: cefTRIAXone 1,000 MG in SODIUM CHLORIDE 0.9% 100 ML IV SCH (21:48)
[2021-04-12] MEDS: GENTAMICIN 0.3% OPH OINT 3.5 GM TUBE BOTH EYES SCH ×4 (04:48→20:48)
[2021-04-12 05:40] LABS: Basophils % 0.1 % (0.0-0.8); Hematocrit 32.6 VOL% (42.0-52.0); Immature Granulocytes % 0.8 %; Lymphocytes # 0.2 10*3/uL (1.4-4.0); Lymphocytes % 1.9 % (21.2-54.2); Mean Corpuscular HGB Conc 33.7 GM/DL (32-36); Mean Platelet Volume 11.5 FL (9.6-12.0); Monocytes % 5.8 % (1.7-12.7); NRBC # 0.03 10*3/uL; Neutrophils % 91.4 % (38.7-73.9); Platelet Count 111 T/CUMM (130-400); Red Cell Distribution Width 18.5 % (9.3-17.3); White Blood Count 12.3 T/CUMM (4-12)
[2021-04-12 05:41] LABS: Red Blood Count 3.43 MC/CUMM (3.8-5.5)
[2021-04-12 05:54] LABS: Calcium 7.6 MG/DL (8.5-10.1); Lymphocytes 2 % (20-55); Platelet Estimate Normal; Potassium 3.9 MMOL/L (3.5-5.1); Segmented Neutrophils 90 % (50-85); Total Cells Counted 100
[2021-04-12] MEDS: ALBUTEROL INHALER 18 GM INH SCH ×3 (06:33→16:57)
[2021-04-12] MEDS: CHOLECALCIFEROL 1,000 UNIT TABLET PO SCH (09:45)
[2021-04-12] MEDS: ASCORBIC ACID 500 MG TABLET PO SCH ×2 (09:45→20:49)
[2021-04-12] MEDS: methylPREDNISolone SOD SUC 40 MG/1 ML VIAL IV SCH ×2 (09:45→20:52)
[2021-04-12] MEDS: PANTOPRAZOLE 40 MG VIAL IV SCH ×2 (09:45→20:52)
[2021-04-12] MEDS: INSULIN GLARGINE 100 UNIT/ML SUBCUT SCH (09:45)
[2021-04-12] MEDS: ZINC GLUCONATE 50 MG TABLET PO SCH (09:46)
[2021-04-12] MEDS: CITALOPRAM 20 MG TABLET PO SCH (09:46)
[2021-04-12] MEDS: INSULIN LISPRO 100 UNIT/ML SUBCUT SCH ×4 (09:47→20:48)
[2021-04-12] MEDS: CETIRIZINE 10 MG TABLET PO SCH (09:52)
[2021-04-12] MEDS: ATORVASTATIN 80 MG TABLET PO SCH (20:48)
[2021-04-12] MEDS: cefTRIAXone 1,000 MG in SODIUM CHLORIDE 0.9% 100 ML IV SCH (20:51)
[2021-04-12] MEDS: ALPRAZolam 0.5 MG TABLET PO PRN (20:56)
[2021-04-13] MEDS: ALBUTEROL INHALER 18 GM INH SCH ×4 (00:16→21:02)
[2021-04-13 05:56] LABS: Calcium 7.3 MG/DL (8.5-10.1); Osmolality,Calculated 307.1 MOS/KG (273-304); Potassium 4.4 MMOL/L (3.5-5.1)
[2021-04-13] MEDS: CHOLECALCIFEROL 1,000 UNIT TABLET PO SCH (09:06)
[2021-04-13] MEDS: ZINC GLUCONATE 50 MG TABLET PO SCH (09:06)
[2021-04-13] MEDS: ASCORBIC ACID 500 MG TABLET PO SCH ×2 (09:06→21:03)
[2021-04-13] MEDS: CETIRIZINE 10 MG TABLET PO SCH (09:06)
[2021-04-13] MEDS: CITALOPRAM 20 MG TABLET PO SCH (09:07)
[2021-04-13] MEDS: PANTOPRAZOLE 40 MG VIAL IV SCH ×2 (09:07→21:04)
[2021-04-13] MEDS: INSULIN GLARGINE 100 UNIT/ML SUBCUT SCH (09:07)
[2021-04-13] MEDS: methylPREDNISolone SOD SUC 40 MG/1 ML VIAL IV SCH ×2 (09:07→21:05)
[2021-04-13] MEDS: INSULIN LISPRO 100 UNIT/ML SUBCUT SCH ×4 (09:07→21:05)
[2021-04-13] MEDS: GENTAMICIN 0.3% OPH OINT 3.5 GM TUBE BOTH EYES SCH ×3 (09:08→21:01)
[2021-04-13 09:12] LABS: Basophils % 0.1 % (0.0-0.8); Hematocrit 31.2 VOL% (42.0-52.0); Hemoglobin 10.1 GM/DL (14.0-18.0); Immature Granulocytes % 1.2 %; Immature Granulocytes Absolute 0.15 #; Lymphocytes # 0.3 10*3/uL (1.4-4.0); Lymphocytes % 2.2 % (21.2-54.2); Mean Corpuscular HGB Conc 32.4 GM/DL (32-36); Mean Corpuscular Volume 98.7 FL (87-102); Mean Platelet Volume 12.2 FL (9.6-12.0); Monocytes % 4.5 % (1.7-12.7); Platelet Count 104 T/CUMM (130-400); Red Blood Count 3.16 MC/CUMM (3.8-5.5); Red Cell Distribution Width 18.6 % (9.3-17.3)
[2021-04-13 09:37] LABS: Hypochromasia 1+; Lymphocytes 4 % (20-55); Microcytosis 1+; Segmented Neutrophils 92 % (50-85); Total Cells Counted 100
[2021-04-13 09:38] LABS: Ovalocytes Slight; Platelet Estimate Decreased
[2021-04-13] MEDS: ATORVASTATIN 80 MG TABLET PO SCH (21:03)
[2021-04-13] MEDS: ALPRAZolam 0.5 MG TABLET PO PRN (21:03)
[2021-04-13] MEDS: cefTRIAXone 1,000 MG in SODIUM CHLORIDE 0.9% 100 ML IV SCH (21:05)
[2021-04-14 05:48] LABS: Basophils % 0.2 % (0.0-0.8); Hematocrit 34.9 VOL% (42.0-52.0); Hemoglobin 11.4 GM/DL (14.0-18.0); Immature Granulocytes % 0.9 %; Immature Granulocytes Absolute 0.12 #; Lymphocytes # 0.3 10*3/uL (1.4-4.0); Mean Corpuscular HGB Conc 32.7 GM/DL (32-36); Mean Corpuscular Volume 100.3 FL (87-102); Mean Platelet Volume 12.2 FL (9.6-12.0); Monocytes % 4.9 % (1.7-12.7); NRBC # 0.02 10*3/uL; Platelet Count 100 T/CUMM (130-400); Red Blood Count 3.48 MC/CUMM (3.8-5.5); Red Cell Distribution Width 18.4 % (9.3-17.3)
[2021-04-14 06:00] LABS: Lymphocytes 2 % (20-55); Platelet Estimate Decreased; Segmented Neutrophils 92 % (50-85); Total Cells Counted 100
[2021-04-14 06:01] LABS: Hypochromasia Slight; Microcytosis Slight
[2021-04-14 06:13] LABS: Calcium 7.2 MG/DL (8.5-10.1); Osmolality,Calculated 299.4 MOS/KG (273-304); Potassium 4.7 MMOL/L (3.5-5.1)
[2021-04-14] MEDS: ZINC GLUCONATE 50 MG TABLET PO SCH (08:59)
[2021-04-14] MEDS: INSULIN GLARGINE 100 UNIT/ML SUBCUT SCH (08:59)
[2021-04-14] MEDS: INSULIN LISPRO 100 UNIT/ML SUBCUT SCH ×4 (08:59→20:51)
[2021-04-14] MEDS: CETIRIZINE 10 MG TABLET PO SCH (09:00)
[2021-04-14] MEDS: methylPREDNISolone SOD SUC 40 MG/1 ML VIAL IV SCH ×2 (09:00→20:52)
[2021-04-14] MEDS: PANTOPRAZOLE 40 MG VIAL IV SCH ×2 (09:00→20:51)
[2021-04-14] MEDS: ASCORBIC ACID 500 MG TABLET PO SCH ×2 (09:00→20:51)
[2021-04-14] MEDS: CHOLECALCIFEROL 1,000 UNIT TABLET PO SCH (09:00)
[2021-04-14] MEDS: CITALOPRAM 20 MG TABLET PO SCH (09:00)
[2021-04-14] MEDS: GENTAMICIN 0.3% OPH OINT 3.5 GM TUBE BOTH EYES SCH ×3 (09:04→20:50)
[2021-04-14] MEDS: ALBUTEROL INHALER 18 GM INH SCH ×3 (09:05→20:50)
[2021-04-14] MEDS: cefTRIAXone 1,000 MG in SODIUM CHLORIDE 0.9% 100 ML IV SCH (20:51)
[2021-04-14] MEDS: ATORVASTATIN 80 MG TABLET PO SCH (20:51)
[2021-04-15 05:20] LABS: Basophils % 0.1 % (0.0-0.8); Hematocrit 31.3 VOL% (42.0-52.0); Hemoglobin 10.1 GM/DL (14.0-18.0); Immature Granulocytes % 0.9 %; Immature Granulocytes Absolute 0.13 #; Lymphocytes # 0.2 10*3/uL (1.4-4.0); Lymphocytes % 1.6 % (21.2-54.2); Mean Corpuscular HGB Conc 32.3 GM/DL (32-36); Mean Corpuscular Volume 98.7 FL (87-102); Mean Platelet Volume 11.6 FL (9.6-12.0); Monocytes % 4.8 % (1.7-12.7); Neutrophils % 92.6 % (38.7-73.9); Platelet Count 93 T/CUMM (130-400); Red Blood Count 3.17 MC/CUMM (3.8-5.5); Red Cell Distribution Width 17.6 % (9.3-17.3)
[2021-04-15 05:29] LABS: Calcium 7.2 MG/DL (8.5-10.1); Osmolality,Calculated 307.5 MOS/KG (273-304); Potassium 4.6 MMOL/L (3.5-5.1)
[2021-04-15 05:56] LABS: Anisocytosis 1+; Hypochromasia 1+; Lymphocytes 2 % (20-55); Metamyelocytes 1 %; Microcytosis 1+; Segmented Neutrophils 93 % (50-85); Total Cells Counted 100
[2021-04-15 05:57] LABS: Platelet Estimate Decreased
[2021-04-15] MEDS: INSULIN GLARGINE 100 UNIT/ML SUBCUT SCH (09:44)
[2021-04-15] MEDS: INSULIN LISPRO 100 UNIT/ML SUBCUT SCH ×4 (09:44→20:24)
[2021-04-15] MEDS: methylPREDNISolone SOD SUC 40 MG/1 ML VIAL IV SCH ×2 (09:44→20:24)
[2021-04-15] MEDS: CITALOPRAM 20 MG TABLET PO SCH (09:46)
[2021-04-15] MEDS: CETIRIZINE 10 MG TABLET PO SCH (09:46)
[2021-04-15] MEDS: ASCORBIC ACID 500 MG TABLET PO SCH ×2 (09:46→20:24)
[2021-04-15] MEDS: PANTOPRAZOLE 40 MG VIAL IV SCH ×2 (09:46→20:23)
[2021-04-15] MEDS: ZINC GLUCONATE 50 MG TABLET PO SCH (09:46)
[2021-04-15] MEDS: CHOLECALCIFEROL 1,000 UNIT TABLET PO SCH (09:47)
[2021-04-15] MEDS: ALBUTEROL INHALER 18 GM INH SCH ×5 (09:47→20:55)
[2021-04-15] MEDS: GENTAMICIN 0.3% OPH OINT 3.5 GM TUBE BOTH EYES SCH ×3 (09:50→20:25)
[2021-04-15] MEDS ORDERED: TUBERCULIN SKIN TEST 0.1 ML SYRINGE INTRADERM ONE (15:00)
[2021-04-15] MEDS: cefTRIAXone 1,000 MG in SODIUM CHLORIDE 0.9% 100 ML IV SCH (20:23)
[2021-04-15] MEDS: ATORVASTATIN 80 MG TABLET PO SCH (20:24)
[2021-04-16 04:15] LABS: Calcium 8.5 MG/DL (8.5-10.1); Osmolality,Calculated 288.4 MOS/KG (273-304); Potassium 4.4 MMOL/L (3.5-5.1)
[2021-04-16 08:34] LABS: Basophils % 0.1 % (0.0-0.8); Hematocrit 28.7 VOL% (42.0-52.0); Hemoglobin 9.4 GM/DL (14.0-18.0); Immature Granulocytes % 1.1 %; Immature Granulocytes Absolute 0.16 #; Lymphocytes # 0.5 10*3/uL (1.4-4.0); Lymphocytes % 3.3 % (21.2-54.2); Mean Corpuscular HGB Conc 32.8 GM/DL (32-36); Mean Corpuscular Volume 96.3 FL (87-102); Monocytes % 7.2 % (1.7-12.7); Neutrophils % 88.3 % (38.7-73.9); Platelet Count 96 T/CUMM (130-400); Red Blood Count 2.98 MC/CUMM (3.8-5.5); Red Cell Distribution Width 18.2 % (9.3-17.3); White Blood Count 14.2 T/CUMM (4-12)
[2021-04-16 08:56] LABS: Anisocytosis 2+; Band Neutrophils 4 % (0-10); Hypersegmented Neutrophil Few; Lymphocytes 3 % (20-55); Macrocytosis 1+; Platelet Estimate Decreased; Segmented Neutrophils 87 % (50-85); Total Cells Counted 100
[2021-04-16 08:57] LABS: Basophilic Stippling Slight
[2021-04-16] MEDS: methylPREDNISolone SOD SUC 40 MG/1 ML VIAL IV SCH ×2 (09:15→20:33)
[2021-04-16] MEDS: CITALOPRAM 20 MG TABLET PO SCH (09:16)
[2021-04-16] MEDS: INSULIN GLARGINE 100 UNIT/ML SUBCUT SCH (09:17)
[2021-04-16] MEDS: INSULIN LISPRO 100 UNIT/ML SUBCUT SCH ×4 (09:18→20:38)
[2021-04-16] MEDS: PANTOPRAZOLE 40 MG VIAL IV SCH ×2 (09:18→20:33)
[2021-04-16] MEDS: ASCORBIC ACID 500 MG TABLET PO SCH ×2 (09:24→20:33)
[2021-04-16] MEDS: CHOLECALCIFEROL 1,000 UNIT TABLET PO SCH (09:24)
[2021-04-16] MEDS: ALBUTEROL INHALER 18 GM INH SCH ×4 (09:25→20:40)
[2021-04-16] MEDS: GENTAMICIN 0.3% OPH OINT 3.5 GM TUBE BOTH EYES SCH ×2 (09:26→17:55)
[2021-04-16] MEDS: ZINC GLUCONATE 50 MG TABLET PO SCH (09:27)
[2021-04-16] MEDS: CETIRIZINE 10 MG TABLET PO SCH (09:27)
[2021-04-16] MEDS: ATORVASTATIN 80 MG TABLET PO SCH (20:33)
[2021-04-16] MEDS: cefTRIAXone 1,000 MG in SODIUM CHLORIDE 0.9% 100 ML IV SCH (20:34)
[2021-04-17 05:43] LABS: Basophils % 0.1 % (0.0-0.8); Hematocrit 27.7 VOL% (42.0-52.0); Immature Granulocytes % 1.2 %; Immature Granulocytes Absolute 0.17 #; Lymphocytes # 0.3 10*3/uL (1.4-4.0); Lymphocytes % 1.7 % (21.2-54.2); Mean Corpuscular HGB Conc 32.5 GM/DL (32-36); Mean Corpuscular Volume 97.5 FL (87-102); Mean Platelet Volume 11.7 FL (9.6-12.0); Monocytes % 3.3 % (1.7-12.7); Neutrophils % 93.7 % (38.7-73.9); Red Blood Count 2.84 MC/CUMM (3.8-5.5); Red Cell Distribution Width 18.2 % (9.3-17.3); White Blood Count 14.4 T/CUMM (4-12)
[2021-04-17 05:56] LABS: Platelet Count 95 T/CUMM (130-400)
[2021-04-17 06:03] LABS: Calcium 7.4 MG/DL (8.5-10.1); Osmolality,Calculated 306.7 MOS/KG (273-304); Potassium 4.8 MMOL/L (3.5-5.1)
[2021-04-17 06:26] LABS: Lymphocytes 1 % (20-55); Segmented Neutrophils 96 % (50-85)
[2021-04-17 06:27] LABS: Hypochromasia 3+; Ovalocytes 1+; Platelet Estimate Decreased
[2021-04-17 06:28] LABS: Total Cells Counted 100
[2021-04-17] MEDS: ZINC GLUCONATE 50 MG TABLET PO SCH (09:03)
[2021-04-17] MEDS: CHOLECALCIFEROL 1,000 UNIT TABLET PO SCH (09:03)
[2021-04-17] MEDS: CITALOPRAM 20 MG TABLET PO SCH (09:03)
[2021-04-17] MEDS: ASCORBIC ACID 500 MG TABLET PO SCH ×2 (09:04→21:27)
[2021-04-17] MEDS: INSULIN LISPRO 100 UNIT/ML SUBCUT SCH ×4 (09:04→21:26)
[2021-04-17] MEDS: CETIRIZINE 10 MG TABLET PO SCH (09:06)
[2021-04-17] MEDS: PANTOPRAZOLE 40 MG VIAL IV SCH ×2 (09:06→21:45)
[2021-04-17] MEDS: methylPREDNISolone SOD SUC 40 MG/1 ML VIAL IV SCH ×2 (09:09→22:02)
[2021-04-17] MEDS: ALBUTEROL INHALER 18 GM INH SCH ×2 (09:20→12:46)
[2021-04-17] MEDS: GENTAMICIN 0.3% OPH OINT 3.5 GM TUBE BOTH EYES SCH ×3 (12:44→21:15)
[2021-04-17] MEDS: INSULIN GLARGINE 100 UNIT/ML SUBCUT SCH (12:47)
[2021-04-17] MEDS ORDERED: EPOETIN ALFA-EPBX 2,000 UNIT/ML VIAL IV PRN (16:09)
[2021-04-17] MEDS: ATORVASTATIN 80 MG TABLET PO SCH (21:27)
[2021-04-18] MEDS: ALBUTEROL INHALER 18 GM INH SCH ×5 (00:47→21:41)
[2021-04-18 06:14] LABS: Basophils % 0.1 % (0.0-0.8); Hematocrit 27.1 VOL% (42.0-52.0); Immature Granulocytes % 1.3 %; Immature Granulocytes Absolute 0.19 #; Lymphocytes # 0.2 10*3/uL (1.4-4.0); Mean Corpuscular HGB Conc 33.2 GM/DL (32-36); Mean Corpuscular Volume 98.5 FL (87-102); Mean Platelet Volume 12.1 FL (9.6-12.0); Neutrophils % 95.6 % (38.7-73.9); Platelet Count 97 T/CUMM (130-400); Red Blood Count 2.75 MC/CUMM (3.8-5.5); Red Cell Distribution Width 18.5 % (9.3-17.3); White Blood Count 15.2 T/CUMM (4-12)
[2021-04-18 07:02] LABS: Albumin 1.8 G/DL (3.4-5.0); Bilirubin,Total 1.2 MG/DL (0.20-1.00); Calcium 7.4 MG/DL (8.5-10.1); Hypochromasia Slight; Lymphocytes 1 % (20-55); Microcytosis Slight; Osmolality,Calculated 317.4 MOS/KG (273-304); Ovalocytes Slight; Platelet Estimate Decreased; Potassium 5.3 MMOL/L (3.5-5.1); Segmented Neutrophils 96 % (50-85); Total Cells Counted 100; Total Protein 5.6 G/DL (6.4-8.2)
[2021-04-18 08:56] LABS: Hepatitis B Core IgM Quant 0.09 Index; Hepatitis B Surface Ag Quant 0.45 Index; Hepatitis B Surface Ag Result Non-Reactive (NonReactive); Hepatitis C Virus Ab Quant 0.03 Index; Hepatitis C Virus Ab Result Non-Reactive (NonReactive)
[2021-04-18] MEDS: CETIRIZINE 10 MG TABLET PO SCH (09:02)
[2021-04-18] MEDS: INSULIN GLARGINE 100 UNIT/ML SUBCUT SCH (09:07)
[2021-04-18] MEDS: INSULIN LISPRO 100 UNIT/ML SUBCUT SCH ×4 (09:10→21:42)
[2021-04-18] MEDS: methylPREDNISolone SOD SUC 40 MG/1 ML VIAL IV SCH ×2 (09:10→21:43)
[2021-04-18] MEDS: PANTOPRAZOLE 40 MG VIAL IV SCH ×2 (09:11→21:45)
[2021-04-18] MEDS: GENTAMICIN 0.3% OPH OINT 3.5 GM TUBE BOTH EYES SCH ×3 (09:13→21:42)
[2021-04-18] MEDS: CITALOPRAM 20 MG TABLET PO SCH (09:14)
[2021-04-18] MEDS: ZINC GLUCONATE 50 MG TABLET PO SCH (09:14)
[2021-04-18] MEDS: CHOLECALCIFEROL 1,000 UNIT TABLET PO SCH (09:14)
[2021-04-18] MEDS: ASCORBIC ACID 500 MG TABLET PO SCH ×2 (09:14→21:15)
[2021-04-18] MEDS: ATORVASTATIN 80 MG TABLET PO SCH (21:15)
[2021-04-19] MEDS: ALBUTEROL INHALER 18 GM INH SCH ×2 (01:00→19:43)
[2021-04-19 07:11] LABS: Hematocrit 26.5 VOL% (42.0-52.0); Hemoglobin 8.6 GM/DL (14.0-18.0)
[2021-04-19 07:40] LABS: Calcium 7.5 MG/DL (8.5-10.1); Osmolality,Calculated 300.5 MOS/KG (273-304); Potassium 4.7 MMOL/L (3.5-5.1)
[2021-04-19] MEDS: INSULIN LISPRO 100 UNIT/ML SUBCUT SCH ×4 (07:46→21:12)
[2021-04-19] MEDS: methylPREDNISolone SOD SUC 40 MG/1 ML VIAL IV SCH ×2 (08:19→21:15)
[2021-04-19] MEDS: INSULIN GLARGINE 100 UNIT/ML SUBCUT SCH (08:20)
[2021-04-19] MEDS: ASCORBIC ACID 500 MG TABLET PO SCH ×2 (08:20→21:15)
[2021-04-19] MEDS: CITALOPRAM 20 MG TABLET PO SCH (08:20)
[2021-04-19] MEDS: PANTOPRAZOLE 40 MG VIAL IV SCH ×2 (08:20→21:14)
[2021-04-19] MEDS: ZINC GLUCONATE 50 MG TABLET PO SCH (08:20)
[2021-04-19] MEDS: CETIRIZINE 10 MG TABLET PO SCH (08:20)
[2021-04-19] MEDS: CHOLECALCIFEROL 1,000 UNIT TABLET PO SCH (08:20)
[2021-04-19] MEDS: GENTAMICIN 0.3% OPH OINT 3.5 GM TUBE BOTH EYES SCH ×3 (08:21→21:12)
[2021-04-19] MEDS: FERROUS SULFATE 325 MG TABLET PO SCH (21:12)
[2021-04-19] MEDS: ATORVASTATIN 80 MG TABLET PO SCH (21:13)
[2021-04-20] MEDS: ALBUTEROL INHALER 18 GM INH SCH ×2 (01:20→13:37)
[2021-04-20 06:33] LABS: Hematocrit 27.9 VOL% (42.0-52.0); Hemoglobin 8.7 GM/DL (14.0-18.0)
[2021-04-20 07:34] LABS: Calcium 7.6 MG/DL (8.5-10.1); Osmolality,Calculated 300.8 MOS/KG (273-304); Potassium 5.4 MMOL/L (3.5-5.1)
[2021-04-20] MEDS: GENTAMICIN 0.3% OPH OINT 3.5 GM TUBE BOTH EYES SCH (08:01)
[2021-04-20] MEDS: INSULIN GLARGINE 100 UNIT/ML SUBCUT SCH (08:01)
[2021-04-20] MEDS: PANTOPRAZOLE 40 MG VIAL IV SCH (08:01)
[2021-04-20] MEDS: methylPREDNISolone SOD SUC 40 MG/1 ML VIAL IV SCH (08:01)
[2021-04-20] MEDS: ZINC GLUCONATE 50 MG TABLET PO SCH (08:02)
[2021-04-20] MEDS: ASCORBIC ACID 500 MG TABLET PO SCH (08:02)
[2021-04-20] MEDS: INSULIN LISPRO 100 UNIT/ML SUBCUT SCH ×2 (08:02→13:37)
[2021-04-20] MEDS: CETIRIZINE 10 MG TABLET PO SCH (08:02)
[2021-04-20] MEDS: CHOLECALCIFEROL 1,000 UNIT TABLET PO SCH (08:02)
[2021-04-20] MEDS: CITALOPRAM 20 MG TABLET PO SCH (08:02)
[2021-04-20] MEDS: FERROUS SULFATE 325 MG TABLET PO SCH (08:11)
[2021-04-20] MEDS ORDERED: HEPARIN 10,000 UNIT/10 ML VIAL IV SCH (11:00)
[2021-04-20 12:24] VITALS: BP 125/59
== END 2021-04-20 13:49 | disposition swing bed (61) | DRG 177 ==
LOC: EDUNIT# → EDBD → N.ED 19:20 → N.EDINP 22:51 → SUATTDRO 22:51 → N.CC 23:17 → N.2E 04-06 08:14
PROVIDERS: ADMIT Internal Medicine; ATTEND Internal Medicine Geriatric Medicine

== ENCOUNTER 2021-04-27 14:18 | Inpatient (IN) ==
[2021-04-27] MEDS ORDERED: ONDANSETRON 4 MG/2 ML VIAL IV PRN (16:24)
[2021-04-27] MEDS ORDERED: DEXTROSE 50% 25 GM/50 ML VIAL IV PRN ×2 (16:24)
[2021-04-27] MEDS ORDERED: GLUCAGON 1 MG VIAL IM PRN (16:24)
[2021-04-27] MEDS: INSULIN REGULAR 100 UNIT/ML SUBCUT SCH ×2 (18:17→21:59)
[2021-04-27] MEDS: metroNIDAZOLE INJ 500 MG/100 ML PREMIX IV SCH ×2 (18:34→23:49)
[2021-04-28] MEDS: metroNIDAZOLE INJ 500 MG/100 ML PREMIX IV SCH ×2 (04:33→18:43)
[2021-04-28 05:45] LABS: Albumin 1.3 G/DL (3.4-5.0); Bilirubin,Total 0.9 MG/DL (0.20-1.00); Calcium 6.3 MG/DL (8.5-10.1); Osmolality,Calculated 290.7 MOS/KG (273-304); Potassium 3.9 MMOL/L (3.5-5.1); Total Protein 4.6 G/DL (6.4-8.2)
[2021-04-28 06:43] LABS: Eosinophils # 0.2 10*3/uL (0.0-0.87); Eosinophils % 2.6 % (0.00-10.9); Hematocrit 20.6 VOL% (42.0-52.0); Immature Granulocytes % 0.7 %; Immature Granulocytes Absolute 0.04 #; Lymphocytes # 0.6 10*3/uL (1.4-4.0); Lymphocytes % 10.3 % (21.2-54.2); Mean Corpuscular HGB Conc 31.1 GM/DL (32-36); Mean Corpuscular Volume 101.5 FL (87-102); Mean Platelet Volume 11.2 FL (9.6-12.0); Monocytes % 10.6 % (1.7-12.7); Neutrophils % 75.8 % (38.7-73.9); Platelet Count 102 T/CUMM (130-400); Red Blood Count 2.03 MC/CUMM (3.8-5.5); White Blood Count 5.7 T/CUMM (4-12)
[2021-04-28 06:49] LABS: Hemoglobin 6.4 GM/DL (14.0-18.0)
[2021-04-28 07:07] LABS: Eosinophils 3 % (0-10); Hypochromasia 1+; Lymphocytes 8 % (20-55); Microcytosis 1+; Platelet Estimate Decreased; Segmented Neutrophils 86 % (50-85); Total Cells Counted 100
[2021-04-28] MEDS: INSULIN REGULAR 100 UNIT/ML SUBCUT SCH ×4 (07:10→22:08)
[2021-04-28] MEDS: PANTOPRAZOLE 40 MG TABLET PO SCH (09:17)
[2021-04-28] MEDS ORDERED: NITROGLYCERIN SL 0.4 MG TABLET SL PRN (11:06)
[2021-04-28] MEDS ORDERED: HEPARIN 10,000 UNIT/10 ML VIAL IV SCH (15:15)
[2021-04-28] MEDS: GABAPENTIN 100 MG CAPSULE PO SCH ×2 (18:43→21:38)
[2021-04-28] MEDS: FERROUS SULFATE 325 MG TABLET PO SCH (18:43)
[2021-04-28] MEDS: cefTRIAXone 1,000 MG in SODIUM CHLORIDE 0.9% 100 ML IV SCH (21:38)
[2021-04-28] MEDS: ATORVASTATIN 80 MG TABLET PO SCH (21:38)
[2021-04-28] MEDS: ZINC OXIDE PASTE 113 GM TUBE TOP SCH (21:39)
[2021-04-29] MEDS: metroNIDAZOLE INJ 500 MG/100 ML PREMIX IV SCH ×3 (01:56→17:53)
[2021-04-29 05:52] LABS: Eosinophils # 0.1 10*3/uL (0.0-0.87); Eosinophils % 2.8 % (0.00-10.9); Hematocrit 25.3 VOL% (42.0-52.0); Immature Granulocytes % 0.4 %; Immature Granulocytes Absolute 0.02 #; Lymphocytes # 0.5 10*3/uL (1.4-4.0); Lymphocytes % 10.3 % (21.2-54.2); Mean Corpuscular HGB Conc 31.6 GM/DL (32-36); Mean Corpuscular Volume 97.3 FL (87-102); Mean Platelet Volume 10.7 FL (9.6-12.0); Monocytes % 11.1 % (1.7-12.7); Neutrophils % 75.4 % (38.7-73.9); Platelet Count 105 T/CUMM (130-400); Red Cell Distribution Width 17.9 % (9.3-17.3)
[2021-04-29 06:05] LABS: Osmolality,Calculated 280.8 MOS/KG (273-304); Potassium 3.9 MMOL/L (3.5-5.1)
[2021-04-29] MEDS ORDERED: EPOETIN ALFA-EPBX 10,000 UNIT/ML VIAL IV PRN (08:00)
[2021-04-29] MEDS: CHOLECALCIFEROL 1,000 UNIT TABLET PO SCH (10:02)
[2021-04-29] MEDS: ZINC OXIDE PASTE 113 GM TUBE TOP SCH ×2 (10:02→21:55)
[2021-04-29] MEDS: GABAPENTIN 100 MG CAPSULE PO SCH ×3 (10:02→21:51)
[2021-04-29] MEDS: CITALOPRAM 20 MG TABLET PO SCH (10:02)
[2021-04-29] MEDS: PANTOPRAZOLE 40 MG TABLET PO SCH (10:02)
[2021-04-29] MEDS: predniSONE 10 MG TABLET PO SCH (10:02)
[2021-04-29] MEDS: FERROUS SULFATE 325 MG TABLET PO SCH ×2 (10:04→17:53)
[2021-04-29] MEDS: INSULIN REGULAR 100 UNIT/ML SUBCUT SCH ×4 (10:13→21:52)
[2021-04-29] MEDS: INSULIN GLARGINE 100 UNIT/ML SUBCUT SCH (10:13)
[2021-04-29] MEDS: ACETAMINOPHEN 325 MG TABLET PO PRN (17:53)
[2021-04-29] MEDS: ATORVASTATIN 80 MG TABLET PO SCH (21:51)
[2021-04-29] MEDS: cefTRIAXone 1,000 MG in SODIUM CHLORIDE 0.9% 100 ML IV SCH (21:53)
[2021-04-30] MEDS: metroNIDAZOLE INJ 500 MG/100 ML PREMIX IV SCH ×3 (02:32→17:48)
[2021-04-30] MEDS: GABAPENTIN 100 MG CAPSULE PO SCH ×2 (09:00→21:07)
[2021-04-30] MEDS: INSULIN GLARGINE 100 UNIT/ML SUBCUT SCH (09:00)
[2021-04-30] MEDS: INSULIN REGULAR 100 UNIT/ML SUBCUT SCH ×4 (13:10→21:08)
[2021-04-30] MEDS: PANTOPRAZOLE 40 MG TABLET PO SCH (13:23)
[2021-04-30] MEDS: predniSONE 10 MG TABLET PO SCH (13:23)
[2021-04-30] MEDS: CHOLECALCIFEROL 1,000 UNIT TABLET PO SCH (13:23)
[2021-04-30] MEDS: CITALOPRAM 20 MG TABLET PO SCH (13:23)
[2021-04-30] MEDS: FERROUS SULFATE 325 MG TABLET PO SCH ×2 (13:23→17:48)
[2021-04-30] MEDS: ZINC OXIDE PASTE 113 GM TUBE TOP SCH ×2 (13:24→21:07)
[2021-04-30] MEDS: ATORVASTATIN 80 MG TABLET PO SCH (21:08)
[2021-04-30] MEDS: cefTRIAXone 1,000 MG in SODIUM CHLORIDE 0.9% 100 ML IV SCH (21:08)
[2021-05-01] MEDS: metroNIDAZOLE INJ 500 MG/100 ML PREMIX IV SCH ×3 (01:32→16:18)
[2021-05-01] MEDS: INSULIN REGULAR 100 UNIT/ML SUBCUT SCH ×4 (07:24→21:40)
[2021-05-01] MEDS: FERROUS SULFATE 325 MG TABLET PO SCH ×2 (08:20→16:16)
[2021-05-01] MEDS: predniSONE 10 MG TABLET PO SCH (08:20)
[2021-05-01] MEDS: PANTOPRAZOLE 40 MG TABLET PO SCH (08:20)
[2021-05-01] MEDS: CHOLECALCIFEROL 1,000 UNIT TABLET PO SCH (08:20)
[2021-05-01] MEDS: ZINC OXIDE PASTE 113 GM TUBE TOP SCH ×2 (08:21→21:41)
[2021-05-01] MEDS: CITALOPRAM 20 MG TABLET PO SCH (08:21)
[2021-05-01] MEDS: GABAPENTIN 100 MG CAPSULE PO SCH ×2 (08:21→21:40)
[2021-05-01] MEDS: INSULIN GLARGINE 100 UNIT/ML SUBCUT SCH (08:22)
[2021-05-01] MEDS: ATORVASTATIN 80 MG TABLET PO SCH (21:40)
[2021-05-01] MEDS: cefTRIAXone 1,000 MG in SODIUM CHLORIDE 0.9% 100 ML IV SCH (21:41)
[2021-05-02] MEDS: metroNIDAZOLE INJ 500 MG/100 ML PREMIX IV SCH ×2 (01:29→08:16)
[2021-05-02 07:14] LABS: Calcium 6.8 MG/DL (8.5-10.1); Osmolality,Calculated 290.7 MOS/KG (273-304); Potassium 3.6 MMOL/L (3.5-5.1)
[2021-05-02] MEDS: INSULIN REGULAR 100 UNIT/ML SUBCUT SCH ×4 (07:20→22:39)
[2021-05-02] MEDS: CHOLECALCIFEROL 1,000 UNIT TABLET PO SCH (08:17)
[2021-05-02] MEDS: predniSONE 10 MG TABLET PO SCH (08:17)
[2021-05-02] MEDS: PANTOPRAZOLE 40 MG TABLET PO SCH (08:17)
[2021-05-02] MEDS: INSULIN GLARGINE 100 UNIT/ML SUBCUT SCH (08:17)
[2021-05-02] MEDS: GABAPENTIN 100 MG CAPSULE PO SCH ×2 (08:18→22:39)
[2021-05-02] MEDS: CITALOPRAM 20 MG TABLET PO SCH (08:18)
[2021-05-02] MEDS: FERROUS SULFATE 325 MG TABLET PO SCH ×2 (08:18→16:28)
[2021-05-02] MEDS: ZINC OXIDE PASTE 113 GM TUBE TOP SCH ×2 (08:19→22:40)
[2021-05-02] MEDS: ATORVASTATIN 80 MG TABLET PO SCH (22:38)
[2021-05-02] MEDS: metroNIDAZOLE 500 MG TABLET PO SCH (22:39)
[2021-05-03 05:57] LABS: Basophils % 0.2 % (0.0-0.8); Eosinophils # 0.2 10*3/uL (0.0-0.87); Eosinophils % 2.4 % (0.00-10.9); Hematocrit 28.1 VOL% (42.0-52.0); Hemoglobin 8.9 GM/DL (14.0-18.0); Immature Granulocytes % 0.9 %; Immature Granulocytes Absolute 0.06 #; Lymphocytes # 0.7 10*3/uL (1.4-4.0); Lymphocytes % 10.6 % (21.2-54.2); Mean Corpuscular HGB Conc 31.7 GM/DL (32-36); Mean Corpuscular Volume 98.6 FL (87-102); Mean Platelet Volume 10.3 FL (9.6-12.0); Monocytes % 10.8 % (1.7-12.7); Neutrophils % 75.1 % (38.7-73.9); Platelet Count 124 T/CUMM (130-400); Red Blood Count 2.85 MC/CUMM (3.8-5.5); Red Cell Distribution Width 17.2 % (9.3-17.3); White Blood Count 6.6 T/CUMM (4-12)
[2021-05-03 06:33] LABS: Calcium 6.8 MG/DL (8.5-10.1); Osmolality,Calculated 298.3 MOS/KG (273-304); Potassium 3.7 MMOL/L (3.5-5.1)
[2021-05-03] MEDS: INSULIN REGULAR 100 UNIT/ML SUBCUT SCH ×4 (07:44→21:02)
[2021-05-03] MEDS: CITALOPRAM 20 MG TABLET PO SCH (08:59)
[2021-05-03] MEDS: PANTOPRAZOLE 40 MG TABLET PO SCH (08:59)
[2021-05-03] MEDS: CHOLECALCIFEROL 1,000 UNIT TABLET PO SCH (08:59)
[2021-05-03] MEDS: FERROUS SULFATE 325 MG TABLET PO SCH ×2 (08:59→17:11)
[2021-05-03] MEDS: metroNIDAZOLE 500 MG TABLET PO SCH ×3 (08:59→22:05)
[2021-05-03] MEDS: GABAPENTIN 100 MG CAPSULE PO SCH ×2 (09:00→22:05)
[2021-05-03] MEDS: ACETAMINOPHEN 325 MG TABLET PO PRN (09:40)
[2021-05-03] MEDS: ZINC OXIDE PASTE 113 GM TUBE TOP SCH ×2 (09:42→22:06)
[2021-05-03] MEDS: INSULIN GLARGINE 100 UNIT/ML SUBCUT SCH (14:09)
[2021-05-03] MEDS: ATORVASTATIN 80 MG TABLET PO SCH (22:05)
[2021-05-04 06:27] LABS: Calcium 7.2 MG/DL (8.5-10.1); Osmolality,Calculated 287.4 MOS/KG (273-304)
[2021-05-04] MEDS: INSULIN REGULAR 100 UNIT/ML SUBCUT SCH ×4 (07:27→21:30)
[2021-05-04 07:53] LABS: Basophils % 0.2 % (0.0-0.8); Eosinophils # 0.1 10*3/uL (0.0-0.87); Eosinophils % 1.1 % (0.00-10.9); Hematocrit 28.6 VOL% (42.0-52.0); Hemoglobin 8.9 GM/DL (14.0-18.0); Immature Granulocytes % 1.1 %; Immature Granulocytes Absolute 0.07 #; Lymphocytes # 0.7 10*3/uL (1.4-4.0); Mean Corpuscular HGB Conc 31.1 GM/DL (32-36); Mean Corpuscular Volume 99.3 FL (87-102); Mean Platelet Volume 10.9 FL (9.6-12.0); Monocytes % 10.8 % (1.7-12.7); Neutrophils % 75.8 % (38.7-73.9); Platelet Count 114 T/CUMM (130-400); Red Blood Count 2.88 MC/CUMM (3.8-5.5); Red Cell Distribution Width 17.9 % (9.3-17.3); White Blood Count 6.2 T/CUMM (4-12)
[2021-05-04] MEDS: PANTOPRAZOLE 40 MG TABLET PO SCH (09:12)
[2021-05-04] MEDS: GABAPENTIN 100 MG CAPSULE PO SCH ×2 (09:12→21:30)
[2021-05-04] MEDS: FERROUS SULFATE 325 MG TABLET PO SCH ×2 (09:12→16:41)
[2021-05-04] MEDS: CHOLECALCIFEROL 1,000 UNIT TABLET PO SCH (09:12)
[2021-05-04] MEDS: CITALOPRAM 20 MG TABLET PO SCH (09:12)
[2021-05-04] MEDS: metroNIDAZOLE 500 MG TABLET PO SCH ×3 (09:12→21:30)
[2021-05-04] MEDS: ZINC OXIDE PASTE 113 GM TUBE TOP SCH ×2 (09:13→21:30)
[2021-05-04] MEDS: INSULIN GLARGINE 100 UNIT/ML SUBCUT SCH (10:56)
[2021-05-04 18:41] LABS: CDT Result Negative (Negative); CDT Specimen Source STOOL
[2021-05-04] MEDS: ATORVASTATIN 80 MG TABLET PO SCH (21:30)
[2021-05-05] MEDS: INSULIN REGULAR 100 UNIT/ML SUBCUT SCH ×4 (08:22→22:20)
[2021-05-05] MEDS: FERROUS SULFATE 325 MG TABLET PO SCH ×2 (12:10→16:21)
[2021-05-05] MEDS: CITALOPRAM 20 MG TABLET PO SCH (12:10)
[2021-05-05] MEDS: CHOLECALCIFEROL 1,000 UNIT TABLET PO SCH (12:10)
[2021-05-05] MEDS: GABAPENTIN 100 MG CAPSULE PO SCH ×2 (12:10→21:10)
[2021-05-05] MEDS: metroNIDAZOLE 500 MG TABLET PO SCH ×3 (12:10→21:10)
[2021-05-05] MEDS: ZINC OXIDE PASTE 113 GM TUBE TOP SCH ×2 (12:11→21:10)
[2021-05-05] MEDS: INSULIN GLARGINE 100 UNIT/ML SUBCUT SCH (12:11)
[2021-05-05] MEDS: PANTOPRAZOLE 40 MG TABLET PO SCH (12:11)
[2021-05-05] MEDS: ATORVASTATIN 80 MG TABLET PO SCH (21:10)
[2021-05-06] MEDS: INSULIN REGULAR 100 UNIT/ML SUBCUT SCH ×2 (08:49→12:15)
[2021-05-06] MEDS: FERROUS SULFATE 325 MG TABLET PO SCH (10:00)
[2021-05-06] MEDS: CITALOPRAM 20 MG TABLET PO SCH (10:00)
[2021-05-06] MEDS: PANTOPRAZOLE 40 MG TABLET PO SCH (10:00)
[2021-05-06] MEDS: CHOLECALCIFEROL 1,000 UNIT TABLET PO SCH (10:00)
[2021-05-06] MEDS: GABAPENTIN 100 MG CAPSULE PO SCH (10:00)
[2021-05-06] MEDS: metroNIDAZOLE 500 MG TABLET PO SCH (10:00)
[2021-05-06] MEDS: ZINC OXIDE PASTE 113 GM TUBE TOP SCH (10:01)
[2021-05-06] MEDS: INSULIN GLARGINE 100 UNIT/ML SUBCUT SCH (10:04)
[2021-05-06 12:06] VITALS: BP 111/60
== END 2021-05-06 12:14 | DRG 314 ==
LOC: EDBD → EDUNIT# → N.EDINP 14:18 → N.ED 14:18 → N.5E 17:35 → SUATTDRO 04-28 13:53
PROVIDERS: ADMIT Internal Medicine; ATTEND Emergency Medicine

== ENCOUNTER 2021-05-28 13:28 | Inpatient (IN) ==
[2021-05-28 15:14] LABS: Basophils # 0.1 10*3/uL (0.0-0.2); Basophils % 0.8 % (0.0-0.8); Eosinophils # 0.3 10*3/uL (0.0-0.87); Eosinophils % 2.4 % (0.00-10.9); Hematocrit 31.3 VOL% (42.0-52.0); Hemoglobin 9.4 GM/DL (14.0-18.0); Immature Granulocytes % 1.5 %; Lymphocytes # 1.2 10*3/uL (1.4-4.0); Lymphocytes % 8.6 % (21.2-54.2); Mean Platelet Volume 9.9 FL (9.6-12.0); Monocytes % 13.1 % (1.7-12.7); Neutrophils % 73.6 % (38.7-73.9); Platelet Count 352 T/CUMM (130-400); Red Blood Count 3.13 MC/CUMM (3.8-5.5); White Blood Count 13.3 T/CUMM (4-12)
[2021-05-28 15:35] LABS: INR 1.2; PT Patient Result 13.5 SECS (10.5-12.0); Partial Thromboplastin Time 50.5 SECS (23.8-32.1)
[2021-05-28 15:45] LABS: Calcium 7.6 MG/DL (8.5-10.1); Osmolality,Calculated 272.5 MOS/KG (273-304); Potassium 4.2 MMOL/L (3.5-5.1)
[2021-05-28] MEDS ORDERED: GLUCAGON 1 MG VIAL IM PRN (16:55)
[2021-05-28] MEDS ORDERED: ONDANSETRON 4 MG/2 ML VIAL IV PRN (16:55)
[2021-05-28] MEDS ORDERED: DOCUSATE SODIUM 100 MG CAPSULE PO PRN (16:55)
[2021-05-28] MEDS ORDERED: ACETAMINOPHEN 325 MG TABLET PO PRN (16:55)
[2021-05-28] MEDS ORDERED: FUROSEMIDE 40 MG/4 ML VIAL IV ONE (17:25)
[2021-05-28] MEDS: HEPARIN 5,000 UNIT/1 ML VIAL SUBCUT SCH (18:35)
[2021-05-28] MEDS: cefTRIAXone 2,000 MG in SODIUM CHLORIDE 0.9% 100 ML IV SCH (20:51)
[2021-05-28] MEDS: ATORVASTATIN 80 MG TABLET PO SCH (20:51)
[2021-05-28] MEDS: INSULIN LISPRO 100 UNIT/ML SUBCUT SCH (20:51)
[2021-05-28] MEDS: GABAPENTIN 100 MG CAPSULE PO SCH (20:51)
[2021-05-28] MEDS: FERROUS SULFATE 325 MG TABLET PO SCH (20:51)
[2021-05-28] MEDS: DEXTROSE 50% 25 GM/50 ML VIAL IV PRN (21:25)
[2021-05-29] MEDS: DEXTROSE 50% 25 GM/50 ML VIAL IV PRN ×2 (03:41→07:42)
[2021-05-29] MEDS: HEPARIN 5,000 UNIT/1 ML VIAL SUBCUT SCH ×2 (06:13→17:02)
[2021-05-29] MEDS ORDERED: LIDOCAINE 1%/EPI INJ 20 ML VIAL ONE (06:49)
[2021-05-29] MEDS ORDERED: BUPIVACAINE MPF 0.25% 30 ML VIAL ONE (06:49)
[2021-05-29 07:06] LABS: Basophils # 0.1 10*3/uL (0.0-0.2); Basophils % 1.1 % (0.0-0.8); Eosinophils # 0.3 10*3/uL (0.0-0.87); Eosinophils % 2.5 % (0.00-10.9); Hematocrit 28.4 VOL% (42.0-52.0); Hemoglobin 8.7 GM/DL (14.0-18.0); Immature Granulocytes % 0.6 %; Immature Granulocytes Absolute 0.07 #; Lymphocytes # 1.1 10*3/uL (1.4-4.0); Lymphocytes % 9.6 % (21.2-54.2); Mean Corpuscular HGB Conc 30.6 GM/DL (32-36); Mean Corpuscular Volume 97.6 FL (87-102); Mean Platelet Volume 9.8 FL (9.6-12.0); Monocytes % 13.4 % (1.7-12.7); Neutrophils % 72.8 % (38.7-73.9); Platelet Count 358 T/CUMM (130-400); Red Blood Count 2.91 MC/CUMM (3.8-5.5); Red Cell Distribution Width 15.9 % (9.3-17.3); White Blood Count 11.2 T/CUMM (4-12)
[2021-05-29 07:29] LABS: Calcium 7.3 MG/DL (8.5-10.1); Osmolality,Calculated 273.5 MOS/KG (273-304); Potassium 4.2 MMOL/L (3.5-5.1)
[2021-05-29] MEDS ORDERED: ETOMIDATE 40 MG/20 ML VIAL IV ONE (08:21)
[2021-05-29] MEDS ORDERED: LIDOCAINE 2% 5 ML VIAL ONE (08:21)
[2021-05-29] MEDS ORDERED: ceFAZolin 1,000 MG VIAL ONE (08:44)
[2021-05-29] MEDS: GABAPENTIN 100 MG CAPSULE PO SCH ×3 (10:33→21:19)
[2021-05-29] MEDS: PANTOPRAZOLE 40 MG TABLET PO SCH (10:33)
[2021-05-29] MEDS: FERROUS SULFATE 325 MG TABLET PO SCH ×2 (10:33→21:19)
[2021-05-29] MEDS: CITALOPRAM 20 MG TABLET PO SCH (10:33)
[2021-05-29] MEDS: INSULIN LISPRO 100 UNIT/ML SUBCUT SCH ×4 (10:58→21:19)
[2021-05-29] MEDS: ATORVASTATIN 80 MG TABLET PO SCH (21:19)
[2021-05-29] MEDS: cefTRIAXone 2,000 MG in SODIUM CHLORIDE 0.9% 100 ML IV SCH (21:20)
[2021-05-30 05:35] LABS: Basophils # 0.1 10*3/uL (0.0-0.2); Basophils % 1.3 % (0.0-0.8); Eosinophils # 0.2 10*3/uL (0.0-0.87); Eosinophils % 1.7 % (0.00-10.9); Hematocrit 29.6 VOL% (42.0-52.0); Hemoglobin 9.2 GM/DL (14.0-18.0); Immature Granulocytes % 0.7 %; Immature Granulocytes Absolute 0.08 #; Lymphocytes % 9.5 % (21.2-54.2); Mean Corpuscular HGB Conc 31.1 GM/DL (32-36); Mean Corpuscular Volume 97.7 FL (87-102); Mean Platelet Volume 9.7 FL (9.6-12.0); Monocytes % 11.7 % (1.7-12.7); Neutrophils % 75.1 % (38.7-73.9); Platelet Count 357 T/CUMM (130-400); Red Blood Count 3.03 MC/CUMM (3.8-5.5); Red Cell Distribution Width 15.8 % (9.3-17.3); White Blood Count 10.8 T/CUMM (4-12)
[2021-05-30 05:49] LABS: Calcium 7.5 MG/DL (8.5-10.1); Osmolality,Calculated 280.2 MOS/KG (273-304); Potassium 4.5 MMOL/L (3.5-5.1)
[2021-05-30] MEDS: HEPARIN 5,000 UNIT/1 ML VIAL SUBCUT SCH ×2 (06:28→16:58)
[2021-05-30] MEDS: INSULIN LISPRO 100 UNIT/ML SUBCUT SCH ×4 (08:25→21:43)
[2021-05-30 09:05] LABS: Albumin 1.5 G/DL (3.4-5.0); Bilirubin,Direct 0.28 MG/DL (0.0-0.20); Bilirubin,Indirect 0.2 MG/DL (0.0-1.0); Bilirubin,Total 0.5 MG/DL (0.20-1.00); Total Protein 5.8 G/DL (6.4-8.2)
[2021-05-30 09:25] LABS: Free T4 (Free Thyroxine) 1.31 NG/DL (0.76-1.46)
[2021-05-30] MEDS: DOXYCYCLINE HYCLATE INJ 100 MG in SODIUM CHLORIDE 0.9% 100 ML IV SCH ×2 (10:02→21:43)
[2021-05-30] MEDS: PANTOPRAZOLE 40 MG TABLET PO SCH (10:03)
[2021-05-30] MEDS: FERROUS SULFATE 325 MG TABLET PO SCH ×2 (10:03→21:42)
[2021-05-30] MEDS: GABAPENTIN 100 MG CAPSULE PO SCH ×3 (10:03→21:43)
[2021-05-30] MEDS: CITALOPRAM 20 MG TABLET PO SCH (10:03)
[2021-05-30] MEDS ORDERED: HEPARIN 10,000 UNIT/10 ML VIAL IV ONE (15:00)
[2021-05-30] MEDS: MEGESTROL 40 MG TABLET PO SCH (17:15)
[2021-05-30] MEDS: ATORVASTATIN 80 MG TABLET PO SCH (21:42)
[2021-05-30] MEDS: LACTULOSE 20 GM/30 ML UDCUP PO SCH (21:43)
[2021-05-30 23:52] LABS: Basophils # 0.1 10*3/uL (0.0-0.2); Basophils % 0.8 % (0.0-0.8); Eosinophils # 0.1 10*3/uL (0.0-0.87); Eosinophils % 0.9 % (0.00-10.9); Hematocrit 31.7 VOL% (42.0-52.0); Hemoglobin 9.5 GM/DL (14.0-18.0); Immature Granulocytes % 0.6 %; Immature Granulocytes Absolute 0.06 #; Lymphocytes % 9.5 % (21.2-54.2); Mean Corpuscular Volume 97.5 FL (87-102); Mean Platelet Volume 9.3 FL (9.6-12.0); Monocytes % 10.2 % (1.7-12.7); Platelet Count 347 T/CUMM (130-400); Red Blood Count 3.25 MC/CUMM (3.8-5.5); Red Cell Distribution Width 15.8 % (9.3-17.3); White Blood Count 10.6 T/CUMM (4-12)
[2021-05-31] MEDS: cefTRIAXone 2,000 MG in SODIUM CHLORIDE 0.9% 100 ML IV SCH ×2 (00:02→22:35)
[2021-05-31 00:03] LABS: INR 1.2; PT Patient Result 13.6 SECS (10.5-12.0)
[2021-05-31 00:04] LABS: Partial Thromboplastin Time 43.6 SECS (23.8-32.1)
[2021-05-31 01:16] LABS: Albumin 1.5 G/DL (3.4-5.0); Bilirubin,Total 0.4 MG/DL (0.20-1.00); Calcium 7.6 MG/DL (8.5-10.1); Osmolality,Calculated 277.1 MOS/KG (273-304); Potassium 3.9 MMOL/L (3.5-5.1); Total Protein 6.1 G/DL (6.4-8.2)
[2021-05-31] MEDS: SODIUM CHLORIDE 0.9% 1,000 ML IV SCH (03:32)
[2021-05-31] MEDS: HEPARIN 5,000 UNIT/1 ML VIAL SUBCUT SCH ×2 (05:37→16:43)
[2021-05-31] MEDS: LEVOTHYROXINE 25 MCG TABLET PO SCH (05:56)
[2021-05-31 06:17] LABS: Basophils # 0.1 10*3/uL (0.0-0.2); Basophils % 0.8 % (0.0-0.8); Eosinophils # 0.1 10*3/uL (0.0-0.87); Eosinophils % 0.7 % (0.00-10.9); Hematocrit 28.9 VOL% (42.0-52.0); Immature Granulocytes % 0.5 %; Immature Granulocytes Absolute 0.05 #; Lymphocytes # 0.8 10*3/uL (1.4-4.0); Lymphocytes % 8.2 % (21.2-54.2); Mean Corpuscular HGB Conc 31.1 GM/DL (32-36); Mean Corpuscular Volume 97.3 FL (87-102); Mean Platelet Volume 9.6 FL (9.6-12.0); Neutrophils % 78.8 % (38.7-73.9); Platelet Count 311 T/CUMM (130-400); Red Blood Count 2.97 MC/CUMM (3.8-5.5); Red Cell Distribution Width 15.9 % (9.3-17.3); White Blood Count 10.3 T/CUMM (4-12)
[2021-05-31 06:49] LABS: Calcium 7.4 MG/DL (8.5-10.1); Potassium 4.1 MMOL/L (3.5-5.1)
[2021-05-31 06:54] LABS: Alanine Aminotransferase < 9 U/L (16-61); Albumin 1.3 G/DL (3.4-5.0); Alkaline Phosphatase 184 U/L (45-117); Aspartate Amino Transferase 31 U/L (0-37); Blood Urea Nitrogen 34 MG/DL (7-18); Calcium 7.5 MG/DL (8.5-10.1); Carbon Dioxide 31 MMOL/L (21-32); Estimated Glom Filtration Rate 11 ML/MIN; Glucose 83 MG/DL (74-106); Osmolality,Calculated 276.1 MOS/KG (273-304); Potassium 4.1 MMOL/L (3.5-5.1); Sodium 135 MMOL/L (136-145); Total Protein 5.6 G/DL (6.4-8.2)
[2021-05-31] MEDS: INSULIN LISPRO 100 UNIT/ML SUBCUT SCH ×4 (07:33→21:15)
[2021-05-31] MEDS: PANTOPRAZOLE 40 MG TABLET PO SCH (09:42)
[2021-05-31] MEDS: LACTULOSE 20 GM/30 ML UDCUP PO SCH ×2 (09:42→21:15)
[2021-05-31] MEDS: DOXYCYCLINE HYCLATE INJ 100 MG in SODIUM CHLORIDE 0.9% 100 ML IV SCH ×2 (09:42→21:15)
[2021-05-31] MEDS: GABAPENTIN 100 MG CAPSULE PO SCH ×3 (09:42→21:15)
[2021-05-31] MEDS: MULTIVITAMIN (CENTRUM) TABLET PO SCH (09:42)
[2021-05-31] MEDS: CITALOPRAM 20 MG TABLET PO SCH (09:42)
[2021-05-31] MEDS: MEGESTROL 40 MG TABLET PO SCH (09:42)
[2021-05-31] MEDS: FERROUS SULFATE 325 MG TABLET PO SCH ×2 (09:42→21:15)
[2021-05-31] MEDS: ATORVASTATIN 80 MG TABLET PO SCH (21:15)
[2021-06-01] MEDS: SODIUM CHLORIDE 0.9% 1,000 ML IV SCH (04:01)
[2021-06-01] MEDS: HEPARIN 5,000 UNIT/1 ML VIAL SUBCUT SCH ×2 (07:21→17:47)
[2021-06-01] MEDS: LEVOTHYROXINE 25 MCG TABLET PO SCH (07:21)
[2021-06-01] MEDS: PANTOPRAZOLE 40 MG TABLET PO SCH (09:13)
[2021-06-01] MEDS: CITALOPRAM 20 MG TABLET PO SCH (09:13)
[2021-06-01] MEDS: LACTULOSE 20 GM/30 ML UDCUP PO SCH (09:13)
[2021-06-01] MEDS: MEGESTROL 40 MG TABLET PO SCH (09:14)
[2021-06-01] MEDS: FERROUS SULFATE 325 MG TABLET PO SCH (09:14)
[2021-06-01] MEDS: INSULIN LISPRO 100 UNIT/ML SUBCUT SCH ×3 (09:14→16:50)
[2021-06-01] MEDS: MULTIVITAMIN (CENTRUM) TABLET PO SCH (09:14)
[2021-06-01] MEDS: GABAPENTIN 100 MG CAPSULE PO SCH ×2 (09:14→16:50)
[2021-06-01] MEDS: DOXYCYCLINE HYCLATE INJ 100 MG in SODIUM CHLORIDE 0.9% 100 ML IV SCH (09:14)
[2021-06-01 09:53] LABS: Basophils # 0.1 10*3/uL (0.0-0.2); Basophils % 0.8 % (0.0-0.8); Eosinophils # 0.3 10*3/uL (0.0-0.87); Eosinophils % 3.2 % (0.00-10.9); Hemoglobin 9.6 GM/DL (14.0-18.0); Immature Granulocytes % 0.8 %; Immature Granulocytes Absolute 0.08 #; Lymphocytes # 1.1 10*3/uL (1.4-4.0); Lymphocytes % 11.1 % (21.2-54.2); Mean Corpuscular Volume 98.2 FL (87-102); Mean Platelet Volume 10.1 FL (9.6-12.0); Monocytes % 14.6 % (1.7-12.7); Neutrophils % 69.5 % (38.7-73.9); Platelet Count 363 T/CUMM (130-400); Red Blood Count 3.26 MC/CUMM (3.8-5.5); Red Cell Distribution Width 15.9 % (9.3-17.3); White Blood Count 9.5 T/CUMM (4-12)
[2021-06-01 10:08] LABS: Osmolality,Calculated 276.2 MOS/KG (273-304); Potassium 3.9 MMOL/L (3.5-5.1)
[2021-06-01] MEDS ORDERED: HEPARIN 10,000 UNIT/10 ML VIAL IV SCH (16:15)
[2021-06-03 07:17] VITALS: BP 131/74
== END 2021-06-01 20:08 | disposition home health service (06) | DRG 673 ==
LOC: EDUNIT# → EDBD → N.ED 13:28 → SUATTDRO 16:57 → N.EDINP 16:57 → N.TELES 19:16
PROVIDERS: ADMIT Emergency Medicine; ATTEND Internal Medicine

== ENCOUNTER 2021-06-19 16:36 | Inpatient (IN) ==
[2021-06-19] MEDS ORDERED: ONDANSETRON 4 MG/2 ML VIAL IV PRN (18:02)
[2021-06-19] MEDS ORDERED: ALBUTEROL 2.5 MG/3 ML NEB RESP TX PRN (18:02)
[2021-06-19] MEDS ORDERED: ENOXAPARIN 30 MG/0.3 ML SYRINGE SUBCUT SCH (18:30)
[2021-06-19] MEDS ORDERED: LACTATED RINGERS 1,000 ML IV SCH (18:30)
[2021-06-19] MEDS ORDERED: AMIODARONE INJ 450 MG in DEXTROSE 5% 241 ML IV SCH (18:30)
[2021-06-19] MEDS: PANTOPRAZOLE 40 MG VIAL IV SCH (19:07)
[2021-06-19 19:23] LABS: Basophils % 0.2 % (0.0-0.8); Eosinophils % 0.2 % (0.00-10.9); Hematocrit 35.5 VOL% (42.0-52.0); Hemoglobin 10.5 GM/DL (14.0-18.0); Immature Granulocytes % 0.9 %; Lymphocytes # 1.2 10*3/uL (1.4-4.0); Lymphocytes % 10.1 % (21.2-54.2); Mean Corpuscular HGB Conc 29.6 GM/DL (32-36); Mean Corpuscular Volume 98.6 FL (87-102); Mean Platelet Volume 9.9 FL (9.6-12.0); NRBC # 0.02 10*3/uL; Neutrophils % 83.6 % (38.7-73.9); Platelet Count 304 T/CUMM (130-400); Red Cell Distribution Width 17.5 % (9.3-17.3); White Blood Count 11.7 T/CUMM (4-12)
[2021-06-19 19:28] LABS: ABG Base Excess -1.1 MMOL/L (-2.5-2.5); ABG HCO3 28.8 MMOL/L (20-26); ABG Oxygen Saturation 88.3 % (95-100); ABG PO2 70.1 MM HG (80-95); ABG TCO2 31.3 MMOL/L (23-27)
[2021-06-19 19:30] LABS: ABG PCO2 79.6 MM HG (35-48); ABG PH 7.177 (7.35-7.45)
[2021-06-19] MEDS ORDERED: SODIUM BICARBONATE 50 MEQ/50 ML VIAL IV ONE (19:38)
[2021-06-19 19:44] LABS: Anisocytosis 1+; Band Neutrophils 11 % (0-10); Hypochromasia 1+; Lymphocytes 11 % (20-55); Nucleated Red Blood Cells 1 (0-5); Segmented Neutrophils 74 % (50-85); Total Cells Counted 100
[2021-06-19 19:45] LABS: Burr Cells Few; Platelet Estimate Adequate; Polychromasia Few; Target Cells Few
[2021-06-19 19:55] LABS: Alanine Aminotransferase < 9 U/L (16-61); Albumin 1.3 G/DL (3.4-5.0); Alkaline Phosphatase 141 U/L (45-117); Aspartate Amino Transferase 32 U/L (0-37); Blood Urea Nitrogen 21 MG/DL (7-18); Calcium 9.3 MG/DL (8.5-10.1); Carbon Dioxide 27 MMOL/L (21-32); Estimated Glom Filtration Rate 11 ML/MIN; Glucose 183 MG/DL (74-106); Osmolality,Calculated 290.1 MOS/KG (273-304); Sodium 142 MMOL/L (136-145); Total Protein 5.5 G/DL (6.4-8.2)
[2021-06-19 20:03] LABS: Potassium 2.4 MMOL/L (3.5-5.1)
[2021-06-19] MEDS: NOREPINEPHRINE 8 MG in SODIUM CHLORIDE 0.9% 242 ML IV PRN (20:18)
[2021-06-19] MEDS ORDERED: VANCOMYCIN INJ 500 MG in SODIUM CHLORIDE 0.9% 100 ML IV PRN (21:20)
[2021-06-19 21:39] LABS: ABG Base Excess 5.7 MMOL/L (-2.5-2.5); ABG HCO3 29.5 MMOL/L (20-26); ABG Oxygen Saturation 92.9 % (95-100); ABG PCO2 57.6 MM HG (35-48); ABG PH 7.361 (7.35-7.45); ABG PO2 71.2 MM HG (80-95); ABG TCO2 29.8 MMOL/L (23-27)
[2021-06-19] MEDS: POTASSIUM CHLORIDE RIDER 10 MEQ/100 ML PREMIX IV PRN ×2 (21:44→22:44)
[2021-06-19] MEDS: MIDAZOLAM 100 MG in SODIUM CHLORIDE 0.9% 80 ML IV PRN (22:59)
[2021-06-20] MEDS: PIPERACILLIN/TAZOBACTAM 3,375 MG in SODIUM CHLORIDE 0.9% 100 ML IV SCH ×3 (00:15→21:23)
[2021-06-20] MEDS ORDERED: HEPARIN 10,000 UNIT/10 ML VIAL IV ONE (00:42)
[2021-06-20] MEDS: POTASSIUM CHLORIDE RIDER 20 MEQ/100 ML PREMIX IV PRN ×3 (00:58→23:41)
[2021-06-20] MEDS ORDERED: VANCOMYCIN INJ 1,250 MG in SODIUM CHLORIDE 0.9% 250 ML IV ONE (02:00)
[2021-06-20] MEDS: AMIODARONE INJ 450 MG in DEXTROSE 5% 241 ML IV SCH ×3 (02:28→13:26)
[2021-06-20 02:44] LABS: ABG HCO3 30.8 MMOL/L (20-26); ABG PCO2 46.4 MM HG (35-48); ABG PH 7.447 (7.35-7.45); ABG TCO2 29.1 MMOL/L (23-27); Basophils % 0.3 % (0.0-0.8); Eosinophils # 0.1 10*3/uL (0.0-0.87); Eosinophils % 0.6 % (0.00-10.9); Hematocrit 31.4 VOL% (42.0-52.0); Hemoglobin 9.6 GM/DL (14.0-18.0); Immature Granulocytes % 0.3 %; Immature Granulocytes Absolute 0.04 #; Lymphocytes # 0.7 10*3/uL (1.4-4.0); Lymphocytes % 5.8 % (21.2-54.2); Mean Corpuscular HGB Conc 30.6 GM/DL (32-36); Mean Corpuscular Volume 94.6 FL (87-102); Mean Platelet Volume 9.9 FL (9.6-12.0); Platelet Count 256 T/CUMM (130-400); Red Blood Count 3.32 MC/CUMM (3.8-5.5); Red Cell Distribution Width 17.7 % (9.3-17.3); White Blood Count 12.4 T/CUMM (4-12)
[2021-06-20] MEDS ORDERED: POTASSIUM CHLORIDE 20 MEQ PACK PER TUBE ONE (02:45)
[2021-06-20] MEDS ORDERED: HEPARIN DRIP 25,000 UNITS/500 ML PREMIX IV SCH (03:00)
[2021-06-20 03:28] LABS: Calcium 8.3 MG/DL (8.5-10.1); Osmolality,Calculated 291.1 MOS/KG (273-304); Potassium 3.1 MMOL/L (3.5-5.1)
[2021-06-20 03:37] LABS: INR 1.2; PT Patient Result 13.4 SECS (10.5-12.0); Partial Thromboplastin Time 39.6 SECS (23.8-32.1)
[2021-06-20 03:45] LABS: Band Neutrophils 12 % (0-10); Lymphocytes 7 % (20-55); Platelet Estimate Adequate; Segmented Neutrophils 75 % (50-85); Total Cells Counted 100
[2021-06-20 03:46] LABS: Hypochromasia 1+; Microcytosis 1+; Ovalocytes Slight
[2021-06-20] MEDS: NOREPINEPHRINE 8 MG in SODIUM CHLORIDE 0.9% 242 ML IV PRN ×2 (05:40→17:22)
[2021-06-20] MEDS ORDERED: POTASSIUM CHLORIDE 20 MEQ PACK PO ONE (09:00)
[2021-06-20 10:06] LABS: ABG Base Excess 6.4 MMOL/L (-2.5-2.5); ABG HCO3 30.1 MMOL/L (20-26); ABG Oxygen Saturation 98.8 % (95-100); ABG PCO2 39.7 MM HG (35-48); ABG PH 7.498 (7.35-7.45); ABG PO2 151.5 MM HG (80-95); ABG TCO2 31.3 MMOL/L (23-27)
[2021-06-20] MEDS ORDERED: ZINC OXIDE PASTE 113 GM TUBE TOP PRN (11:50)
[2021-06-20] MEDS ORDERED: ACETAMINOPHEN 325 MG TABLET PO PRN (11:54)
[2021-06-20] MEDS: SEVELAMER CARBONATE POWDER 2.4 GM PACK PO SCH ×2 (13:26→17:58)
[2021-06-20 15:27] LABS: Alanine Aminotransferase < 9 U/L (16-61); Albumin 1.2 G/DL (3.4-5.0); Alkaline Phosphatase 124 U/L (45-117); Aspartate Amino Transferase 34 U/L (0-37); Bilirubin,Indirect 0.4 MG/DL (0.0-1.0); Total Protein 5.3 G/DL (6.4-8.2)
[2021-06-20] MEDS ORDERED: VANCOMYCIN INJ 500 MG in SODIUM CHLORIDE 0.9% 100 ML IV ONE (17:00)
[2021-06-20] MEDS: GABAPENTIN 100 MG CAPSULE PO SCH ×2 (17:02→21:22)
[2021-06-20] MEDS ORDERED: HEPARIN 10,000 UNIT/10 ML VIAL IV SCH (17:45)
[2021-06-20] MEDS: PANTOPRAZOLE 40 MG VIAL IV SCH (17:58)
[2021-06-20] MEDS: FERROUS SULFATE 325 MG TABLET PO SCH (21:22)
[2021-06-20] MEDS: ATORVASTATIN 80 MG TABLET PO SCH (21:22)
[2021-06-21] MEDS: POTASSIUM CHLORIDE RIDER 20 MEQ/100 ML PREMIX IV PRN ×2 (01:42→08:21)
[2021-06-21] MEDS: AMIODARONE INJ 450 MG in DEXTROSE 5% 241 ML IV SCH ×2 (04:21→18:58)
[2021-06-21 04:45] LABS: ABG Base Excess 3.2 MMOL/L (-2.5-2.5); ABG HCO3 26.2 MMOL/L (20-26); ABG Oxygen Saturation 99.4 % (95-100); ABG PCO2 33.3 MM HG (35-48); ABG PH 7.513 (7.35-7.45); ABG PO2 200.4 MM HG (80-95); ABG TCO2 27.2 MMOL/L (23-27)
[2021-06-21 04:57] LABS: Basophils % 0.5 % (0.0-0.8); Eosinophils # 0.1 10*3/uL (0.0-0.87); Hematocrit 26.1 VOL% (42.0-52.0); Immature Granulocytes % 0.6 %; Immature Granulocytes Absolute 0.05 #; Lymphocytes # 0.7 10*3/uL (1.4-4.0); Lymphocytes % 7.6 % (21.2-54.2); Mean Corpuscular HGB Conc 30.7 GM/DL (32-36); Mean Corpuscular Volume 94.2 FL (87-102); Mean Platelet Volume 10.3 FL (9.6-12.0); Monocytes % 5.5 % (1.7-12.7); NRBC # 0.02 10*3/uL; Neutrophils % 84.8 % (38.7-73.9); Platelet Count 217 T/CUMM (130-400); Red Blood Count 2.77 MC/CUMM (3.8-5.5); White Blood Count 8.7 T/CUMM (4-12)
[2021-06-21] MEDS: NOREPINEPHRINE 8 MG in SODIUM CHLORIDE 0.9% 242 ML IV PRN (05:13)
[2021-06-21 05:18] LABS: Alanine Aminotransferase < 6 U/L (16-61); Albumin 1.2 G/DL (3.4-5.0); Alkaline Phosphatase 110 U/L (45-117); Aspartate Amino Transferase 26 U/L (0-37); Blood Urea Nitrogen 19 MG/DL (7-18); Calcium 8.1 MG/DL (8.5-10.1); Carbon Dioxide 26 MMOL/L (21-32); Estimated Glom Filtration Rate 17 ML/MIN; Glucose 132 MG/DL (74-106); Osmolality,Calculated 280.5 MOS/KG (273-304); Potassium 3.1 MMOL/L (3.5-5.1); Sodium 139 MMOL/L (136-145)
[2021-06-21 07:53] LABS: Band Neutrophils 5 % (0-10); Eosinophils 2 % (0-10); Hypochromasia 1+; Lymphocytes 6 % (20-55); Metamyelocytes 1 %; Microcytosis 1+; Segmented Neutrophils 81 % (50-85); Total Cells Counted 100
[2021-06-21 07:54] LABS: Acanthocytes Few; Ovalocytes Slight
[2021-06-21 07:55] LABS: Platelet Estimate Normal
[2021-06-21 07:56] LABS: Target Cells Slight
[2021-06-21] MEDS: FERROUS SULFATE 325 MG TABLET PO SCH ×2 (08:20→20:42)
[2021-06-21] MEDS: GABAPENTIN 100 MG CAPSULE PO SCH ×3 (08:20→20:42)
[2021-06-21] MEDS: CHOLECALCIFEROL 1,000 UNIT TABLET PO SCH (08:20)
[2021-06-21] MEDS: SEVELAMER CARBONATE POWDER 2.4 GM PACK PO SCH ×3 (08:20→17:33)
[2021-06-21] MEDS: CITALOPRAM 20 MG TABLET PO SCH (08:20)
[2021-06-21] MEDS: LEVOTHYROXINE 25 MCG TABLET PO SCH (08:20)
[2021-06-21] MEDS ORDERED: MICAFUNGIN 100 MG in SODIUM CHLORIDE 0.9% 100 ML IV SCH (10:00)
[2021-06-21] MEDS: PIPERACILLIN/TAZOBACTAM 3,375 MG in SODIUM CHLORIDE 0.9% 100 ML IV SCH ×2 (10:08→21:27)
[2021-06-21] MEDS: MIDAZOLAM 100 MG in SODIUM CHLORIDE 0.9% 80 ML IV PRN (14:02)
[2021-06-21] MEDS: PANTOPRAZOLE 40 MG VIAL IV SCH (17:33)
[2021-06-21] MEDS ORDERED: NOREPINEPHRINE 16 MG in SODIUM CHLORIDE 0.9% 234 ML IV PRN (18:56)
[2021-06-21] MEDS: ATORVASTATIN 80 MG TABLET PO SCH (20:42)
[2021-06-22] MEDS ORDERED: PHENYLEPHRINE INJ 80 MG in SODIUM CHLORIDE 0.9% 242 ML IV PRN (01:13)
[2021-06-22] MEDS ORDERED: PHENYLEPHRINE DRIP 40 MG/250 ML PREMIX IV ONE (01:15)
[2021-06-22 05:09] LABS: ABG Base Excess 3.4 MMOL/L (-2.5-2.5); ABG HCO3 27.5 MMOL/L (20-26); ABG Oxygen Saturation 97.9 % (95-100); ABG PCO2 31.5 MM HG (35-48); ABG PH 7.527 (7.35-7.45); ABG PO2 80.6 MM HG (80-95); ABG TCO2 24.5 MMOL/L (23-27)
[2021-06-22 05:10] LABS: Basophils % 0.3 % (0.0-0.8); Eosinophils # 0.1 10*3/uL (0.0-0.87); Hematocrit 23.5 VOL% (42.0-52.0); Hemoglobin 7.2 GM/DL (14.0-18.0); Immature Granulocytes % 0.6 %; Immature Granulocytes Absolute 0.05 #; Lymphocytes # 0.6 10*3/uL (1.4-4.0); Lymphocytes % 7.1 % (21.2-54.2); Mean Corpuscular HGB Conc 30.6 GM/DL (32-36); Mean Corpuscular Volume 94.4 FL (87-102); Mean Platelet Volume 9.8 FL (9.6-12.0); Monocytes % 3.4 % (1.7-12.7); NRBC # 0.02 10*3/uL; Neutrophils % 87.6 % (38.7-73.9); Platelet Count 169 T/CUMM (130-400); Red Blood Count 2.49 MC/CUMM (3.8-5.5)
[2021-06-22 05:22] LABS: Calcium 7.6 MG/DL (8.5-10.1); Osmolality,Calculated 284.3 MOS/KG (273-304)
[2021-06-22 05:24] LABS: Potassium 2.3 MMOL/L (3.5-5.1)
[2021-06-22] MEDS: POTASSIUM CHLORIDE RIDER 20 MEQ/100 ML PREMIX IV PRN (05:33)
[2021-06-22] MEDS: LEVOTHYROXINE 25 MCG TABLET PO SCH (05:55)
[2021-06-22] MEDS: SEVELAMER CARBONATE POWDER 2.4 GM PACK PO SCH ×2 (08:00→12:00)
[2021-06-22] MEDS: GABAPENTIN 100 MG CAPSULE PO SCH (09:00)
[2021-06-22] MEDS: CHOLECALCIFEROL 1,000 UNIT TABLET PO SCH (09:00)
[2021-06-22] MEDS: PIPERACILLIN/TAZOBACTAM 3,375 MG in SODIUM CHLORIDE 0.9% 100 ML IV SCH (09:00)
[2021-06-22] MEDS: CITALOPRAM 20 MG TABLET PO SCH (09:00)
[2021-06-22] MEDS: FERROUS SULFATE 325 MG TABLET PO SCH (09:00)
[2021-06-22 09:41] VITALS: BP 117/49
[2021-06-22] MEDS ORDERED: MICAFUNGIN 100 MG in SODIUM CHLORIDE 0.9% 100 ML IV SCH (10:00)
[2021-06-22] MEDS: AMIODARONE INJ 450 MG in DEXTROSE 5% 241 ML IV SCH (10:30)
== END 2021-06-22 07:56 | disposition expired | DRG 208 ==
LOC: N.ED 16:36 → N.EDINP 18:02 → SUATTDRO 18:02 → N.ICU 19:13
PROVIDERS: ADMIT Internal Medicine; ATTEND Family Medicine